=== PATIENT | female | born 1965 | race Caucasian/White ===

== ENCOUNTER 2017-07-26 14:46 | Inpatient (IN) | payer BC, OTHER ==
[~2017-07-26] VITALS: Ht 165.1 cm; Wt 85.1 kg
[~2017-07-26 14:46] MED LIST: ALBU8I INH; CYCL-36 PO; DIOV80TA4 PO; ECOT81TA2 PO; ESTR1TAB12 PO; LEVE500 PO; LEVO75TA3 PO; LORA-392 PO; METO50TA PO; MONT10 PO; NIFE1TAB85 PO; PROM25TA5 PO; RANI150T PO
[2017-07-26 14:49] VITALS: BP 132/84; PULSE 98; RESP 17; TEMP 98.4; O2SAT 99
[2017-07-26] MEDS ORDERED: SODIUM CHLORID 0.9% 500 ML INJ 500 ML IV ONE (15:30)
[2017-07-26] MEDS ORDERED: SODIUM CHLORIDE 0.9% FLUSH 10 ML FLUSH IVF PRN (15:30)
--- NOTE | 2017-07-26 15:49 | PD ---
HPI Chief Complaint: Chest Pain Time Seen by Provider: 15:42 Travel History International Travel<30 days: No Contact w/Intl Traveler<30days: No Traveled to known affect area: No History of Present Illness HPI 52 YO F presents to the ED for evaluation of ~3 hour history of weakness of the lower extremities. She states that she was able to walk to the bathroom this morning around 6 am and walk with her around noon today. She states that she has had chronic, worsening issues with loss of strength in the LE for "a while now." She also complains of constant, " pretty bad" left sided CP x "days." Denies incontinence or saddle anesthesia. She denies fevers, chills, headache, dizziness, cough, palpitations, N/V, dysuria, back pain, numbness, tingling of the LE. She states that she has discussed the weakness with her PCP but hasn't had any evaluation. PFSH Past Medical History Asthma: Yes Anxiety: Yes Cancer: No Cardiovascular Problems: Yes Cerebrovascular Accident: No Diabetes: No Diminished Hearing: No Endocrine: Yes GERD: Yes Genitourinary: No Headaches: Yes Hypertension: Yes Immune Disorder: No Neurologic: No Psychiatric: Yes Respiratory: Yes (ASTHMA) Migraines: Yes (X LAST 2 DAYS) Seizures: No (THIS VISIT 04/25/15) Thyroid Disease: Yes (HYPOTHYROID) ?: Not Past Surgical History Ear Surgery: Yes (SOME TEETH REMOVED) Gynecologic Surgery: Yes (HYSTERECTOMY) Hysterectomy: Yes Social History Alcohol Use: Yes (1-2 DRINKS/DAY) Tobacco Use: No Substance Use: No Allergies-Medications (Allergen,Severity, Reaction): Coded Allergies: enalaprilat (Verified Allergy, Severe, Swelling, 07/26/17) morphine (Verified Allergy, Severe, Anaphylaxis, 07/26/17) latex (Verified Adverse Reaction, Severe, Rash, 07/26/17) lidocaine (Verified Adverse Reaction, Intermediate, Swelling, 07/26/17) CAUSED FACIAL SWELLING. Reported Meds & Prescriptions Reported Meds & Active Scripts Active Reported Valsartan 160 Mg Tab 160 Mg PO DAILY Levothyroxine (Levothyroxine Sodium) 112 Mcg Tab 112 Mcg PO DAILY Clonazepam 0.5 Mg Tab 0.5 Mg PO BID Singulair (Montelukast Sodium) 10 Mg Tab 10 Mg PO HS Keppra (Levetiracetam) 500 Mg Tab 500 Mg PO TID Gabapentin 300 Mg Cap 300 Mg PO TID Metoprolol Tartrate 100 Mg Tab 100 Mg PO BID Review of Systems Except as stated in HPI: all other systems reviewed are Neg Physical Exam Narrative GENERAL: Well-nourished, well-developed distracted white female in no acute distress. SKIN: Focused skin assessment warm/dry. Ecchymosis in various states of healing on the bilateral lower extremities. HEAD: Normocephalic. EYES: No scleral icterus. No injection or drainage. NECK: Supple, trachea midline. No JVD or lymphadenopathy. CARDIOVASCULAR: Regular rate and rhythm without murmurs, gallops, or rubs. CHEST: Nontender throughout without deformity or crepitus. No retractions. RESPIRATORY: Breath sounds clear and equal bilaterally. No accessory muscle use. GASTROINTESTINAL: Abdomen soft, non-tender, nondistended. Active bowel sounds MUSCULOSKELETAL: No cyanosis, or edema. 5/5 strength in the BUE. 3-4/5 strength of dorsiflexion, plantar flexion, knee and hip flexion bilaterally.Difficultly performing heel to bowling test bilaterally. Sensation intact to light touch distally.Cap refill less than 2 seconds. BACK: Nontender without obvious deformity. No CVA tenderness. Data Data Last Documented VS Vital Signs Date Time Temp Pulse Resp B/P (MAP) Pulse Ox O2 Delivery O2 Flow Rate FiO2 07/26/17 16:59 99/54 (69) 07/26/17 14:49 98.4 98 17 99 Orders Orders Electrocardiogram (07/26/17 15:18) Ckmb (Isoenzyme) Profile (07/26/17 15:18) Complete Blood Count With Diff (07/26/17 15:18) Comprehensive Metabolic Panel (07/26/17 15:18) Magnesium (Mg) (07/26/17 15:18) Troponin I (07/26/17 15:18) Chest, Single Ap (07/26/17 15:18) Ecg Monitoring (07/26/17 15:18) Bilateral Bp Monitoring (07/26/17 15:18) Iv Access Insert/Monitor (07/26/17 15:18) Oximetry (07/26/17 15:18) Sodium Chloride 0.9% Flush (Ns Flush) (07/26/17 15:30) Sodium Chlorid 0.9% 500 Ml Inj (Ns 500 M (07/26/17 15:30) Ct Brain W/O Iv Contrast(Rout) (07/26/17 ) Lactic Acid Sepsis Protocol (07/26/17 17:00) Blood Culture (07/26/17 17:07) Sodium Chlor 0.9% 1000 Ml Inj (Ns 1000 M (07/26/17 17:45) Sodium Chlor 0.9% 1000 Ml Inj (Ns 1000 M (07/26/17 17:45) Alcohol (Ethanol) (07/26/17 17:50) Levothyroxine (Synthroid) (07/27/17 06:00) Place In Observation (07/26/17 ) Vital Signs (Adult) Q4H (07/26/17 18:09) Activity Oob With Assistance (07/26/17 18:09) Intake + Output DIPTI.QSHIFT (07/26/17 18:09) Diet Heart Healthy (07/26/17 Dinner) Sodium Chlor 0.45% 1000 Ml Inj (1/2 Ns 1 (07/26/17 18:09) Sodium Chloride 0.9% Flush (Ns Flush) (07/26/17 18:15) Sodium Chloride 0.9% Flush (Ns Flush) (07/26/17 21:00) Ondansetron Inj (Zofran Inj) (07/26/17 18:15) Heparin Inj (Heparin Inj) (07/26/17 19:00) Naloxone Inj (Narcan Inj) (07/26/17 18:15) Docusate Sodium-Senna (Jacquelyn-Colace) (07/26/17 21:00) Magnesium Hydroxide Liq (Milk Of Magnesi (07/26/17 18:15) Sennosides (Senokot) (07/26/17 18:15) Bisacodyl Supp (Dulcolax Supp) (07/26/17 18:15) Lactulose Liq (Lactulose Liq) (07/26/17 18:15) Admit Order (Ed Use Only) (07/26/17 18:09) Labs Laboratory Tests Test 07/26/17 16:25 White Blood Count 6.5 TH/MM3 Red Blood Count 3.48 MIL/MM3 Hemoglobin 11.7 GM/DL Hematocrit 35.1 % Mean Corpuscular Volume 101.0 FL Mean Corpuscular Hemoglobin 33.6 PG Mean Corpuscular Hemoglobin Concent 33.3 % Red Cell Distribution Width 15.3 % Platelet Count 213 TH/MM3 Mean Platelet Volume 9.0 FL Neutrophils (%) (Auto) 67.8 % Lymphocytes (%) (Auto) 17.5 % Monocytes (%) (Auto) 10.6 % Eosinophils (%) (Auto) 3.0 % Basophils (%) (Auto) 1.1 % Neutrophils # (Auto) 4.4 TH/MM3 Lymphocytes # (Auto) 1.1 TH/MM3 Monocytes # (Auto) 0.7 TH/MM3 Eosinophils # (Auto) 0.2 TH/MM3 Basophils # (Auto) 0.1 TH/MM3 CBC Comment DIFF FINAL Differential Comment Blood Urea Nitrogen 15 MG/DL Creatinine 2.00 MG/DL Random Glucose 92 MG/DL Total Protein 6.1 GM/DL Albumin 3.0 GM/DL Calcium Level 8.6 MG/DL Magnesium Level 2.2 MG/DL Alkaline Phosphatase 39 U/L Aspartate Amino Transf (AST/SGOT) 61 U/L Alanine Aminotransferase (ALT/SGPT) 45 U/L Total Bilirubin 1.0 MG/DL Sodium Level 129 MEQ/L Potassium Level 3.5 MEQ/L Chloride Level 91 MEQ/L Carbon Dioxide Level 27.6 MEQ/L Anion Gap 10 MEQ/L Estimat Glomerular Filtration Rate 26 ML/MIN Total Creatine Kinase 51 U/L Troponin I LESS THAN 0.02 NG/ML MDM Medical Decision Making Medical Screen Exam Complete: Yes Emergency Medical Condition: Yes Interpretation(s) EKG rate 62, sinus rhythm. Normal intervals. Normal axis. No acute ST changes. Reviewed by Dr. Chao. Differential Diagnosis hypoTN versus UTI versus deconditioning versus anemia versus hypothyroid versus metabolic derangement versus other Narrative Course 52 YO F presents to the ED for evaluation of ~3 hour history of weakness of the lower extremities. She states that she was able to walk to the bathroom this morning around 6 am and walk with her husbands assistance around noon today. She states that she has had chronic, worsening issues with loss of strength in the LE for "a while now." She also complains of constant, " pretty bad" left sided CP x "days." Denies incontinence or saddle anesthesia. She denies fevers, chills, headache, dizziness, cough, palpitations, N/V, dysuria, back pain, numbness, tingling of the LE. Vitals reviewed. Patient is hypotensive on presentation. A central line was placed by Dr. Baez. The patient was administered 3 L NS. CBC: WBC 6.5. Hemoglobin 11.7. CMP: BUN 15, creatinine 2.0. Sodium 129, chloride 91. Cardiac enzymes negative 1. EKG as above. Chest x-ray with no acute cardiopulmonary disease. UA: No culture indicated. Lactic acid 0.9. EtOH less than 3. CT of the head negative for acute process. Review the record reveals documentation of chronic alcoholism and the patient does have some microcytosis. Patient was hospitalized recently with severe hypernatremia and was instructed to discontinue her antihypertensives. She states that she still been taking them. I spoke with Dr. Parker who agrees to accept the patient to the medicine service. Please see medicine notes for disposition. Leydi Hutchins Jul 26, 2017 15:49
--- NOTE | 2017-07-26 16:28 | RADRPT ---
EXAM DATE/TIME: 07/26/2017 15:44 [facility] COMPARISON: CHEST SINGLE AP, April 25, 2015, 3:36. INDICATIONS : Chest pain and bilateral leg weakness. MEDICAL HISTORY : None. SURGICAL HISTORY : None. ENCOUNTER: Initial ACUITY: 1 day PAIN SCORE: 5/10 LOCATION: Bilateral chest FINDINGS: There is elevation of the right hemidiaphragm. Discoid atelectasis is noted within the right midlung field. The left lung is clear. The heart is stable. CONCLUSION: 1. Discoid atelectasis within the right midlung field. 2. Elevation of the right hemidiaphragm. Puneet Soliman MD on July 26, 2017 at 16:16 Board Certified Radiologist. This report was verified electronically.
[2017-07-26 16:59] VITALS: BP 99/54
[2017-07-26 17:05] LABS: AUTOMATED NEUTROPHIL # 4.4 TH/MM3 (1.8-7.7); BASOPHIL # 0.1 TH/MM3 (0-0.2); BASOPHIL % 1.1 % (0.0-2.0); EOSINOPHIL # 0.2 TH/MM3 (0-0.4); HEMATOCRIT 35.1 % (35.0-46.0); HEMO FLAGS DIFF FINAL; LYMPH % 17.5 % (9.0-44.0); LYMPHOCYTE # 1.1 TH/MM3 (1.0-4.8); MEAN CORPUSCULAR HEMOGLOBIN 33.6 PG (27.0-34.0); MEAN CORPUSCULAR HGB CONC 33.3 % (32.0-36.0); MONO % 10.6 % (0.0-8.0); NEUT % 67.8 % (16.0-70.0); PLATELET COUNT 213 TH/MM3 (150-450); RED BLOOD COUNT 3.48 MIL/MM3 (4.00-5.30); RED CELL DISTRIBUTION WIDTH 15.3 % (11.6-17.2); WHITE BLOOD COUNT 6.5 TH/MM3 (4.0-11.0)
[2017-07-26 17:20] LABS: ANION GAP 10 MEQ/L (5-15); AST (GOT) 61 U/L (15-37); BICARBONATE 27.6 MEQ/L (21.0-32.0); BLOOD UREA NITROGEN 15 MG/DL (7-18); CHLORIDE 91 MEQ/L (98-107); GLOMERULAR FILTRATION RATE 26 ML/MIN (>89); MAGNESIUM 2.2 MG/DL (1.5-2.5); POTASSIUM 3.5 MEQ/L (3.5-5.1); SODIUM (NA) 129 MEQ/L (136-145)
[2017-07-26 17:22] LABS: ALT (GPT) 45 U/L (10-53)
[2017-07-26 17:25] LABS: ALKALINE PHOSPHATASE 39 U/L (45-117)
[2017-07-26 17:41] LABS: CREATINE KINASE 51 U/L (26-192)
--- NOTE | 2017-07-26 17:43 | RADRPT ---
EXAM DATE/TIME: 07/26/2017 17:33 [facility] COMPARISON: CT BRAIN W/O CONTRAST, April 25, 2015, 2:25. INDICATIONS : Patient complains of weakness. RADIATION DOSE: 30.13 CTDIvol (mGy) MEDICAL HISTORY : Seizures. Hypertension. Low blood pressure. SURGICAL HISTORY : Hysterectomy. ENCOUNTER: Initial ACUITY: 2 days PAIN SCALE: 0/10 LOCATION: cranial TECHNIQUE: Multiple contiguous axial images were obtained of the head. Using automated exposure control and adj ustment of the mA and/or kV according to patient size, radiation dose was kept as low as reasonably a chievable to obtain optimal diagnostic quality images. DICOM format image data is available electro nically for review and comparison. FINDINGS: CEREBRUM: The ventricles are normal for age. No evidence of midline shift, mass lesion, hemorrhage or acute in farction. No extra-axial fluid collections are seen. POSTERIOR FOSSA: The cerebellum and brainstem are intact. The 4th ventricle is midline. The cerebellopontine angle i s unremarkable. EXTRACRANIAL: The visualized portion of the orbits is intact. SKULL: The calvaria is intact. No evidence of skull fracture. CONCLUSION: Negative noncontrast CT Francisco Orozco MD on July 26, 2017 at 17:41 Board Certified Radiologist. This report was verified electronically.
[2017-07-26] MEDS ORDERED: SODIUM CHLOR 0.9% 1000 ML INJ 1,000 ML IV SCH ×2 (17:45)
[2017-07-26] MEDS ORDERED: VALS1TAB65 PO (17:46)
[2017-07-26] MEDS ORDERED: METO100T PO (17:46)
[2017-07-26] MEDS ORDERED: LEVO112T2 PO (17:46)
[2017-07-26] MEDS ORDERED: GABA300C5 PO (17:46)
[2017-07-26] MEDS ORDERED: MONT10TA2 PO (17:46)
[2017-07-26] MEDS ORDERED: CLON0.5T PO (17:46)
[2017-07-26] MEDS ORDERED: NIFE30TA61 PO (17:46)
[2017-07-26] MEDS ORDERED: LEVE500 PO (17:46)
[2017-07-26] MEDS ORDERED: SODIUM CHLORIDE 0.9% FLUSH 10 ML FLUSH IV FLUSH PRN (18:15)
[2017-07-26] MEDS ORDERED: MAGNESIUM HYDROXIDE SUSP 30 ML CUP PO PRN (18:15)
[2017-07-26] MEDS ORDERED: ONDANSETRON HCL 4 MG/2 ML VIAL IVP PRN (18:15)
[2017-07-26] MEDS ORDERED: NALOXONE HCL 0.4 MG/ML AMP IV PRN (18:15)
[2017-07-26] MEDS ORDERED: BISACODYL 10 MG SUPP RECTAL PRN (18:15)
[2017-07-26] MEDS ORDERED: SENNOSIDES 8.6 MG TAB PO PRN (18:15)
[2017-07-26] MEDS ORDERED: LACTULOSE SYRUP 20 GM/30 ML CUP PO PRN (18:15)
--- NOTE | 2017-07-26 18:43 | PD ---
Data Data Last Documented VS Vital Signs Date Time Temp Pulse Resp B/P (MAP) Pulse Ox O2 Delivery O2 Flow Rate FiO2 07/26/17 16:59 99/54 (69) 07/26/17 14:49 98.4 98 17 99 Orders Orders Electrocardiogram (07/26/17 15:18) Ckmb (Isoenzyme) Profile (07/26/17 15:18) Complete Blood Count With Diff (07/26/17 15:18) Comprehensive Metabolic Panel (07/26/17 15:18) Magnesium (Mg) (07/26/17 15:18) Troponin I (07/26/17 15:18) Chest, Single Ap (07/26/17 15:18) Ecg Monitoring (07/26/17 15:18) Bilateral Bp Monitoring (07/26/17:18) Iv Access Insert/Monitor (07/26/17 15:18) Oximetry (07/26/17 15:18) Sodium Chloride 0.9% Flush (Ns Flush) (07/26/17 15:30) Sodium Chlorid 0.9% 500 Ml Inj (Ns 500 M (07/26/17 15:30) Ct Brain W/O Iv Contrast(Rout) (07/26/17 ) Lactic Acid Sepsis Protocol (07/26/17 17:00) Blood Culture (07/26/17 17:07) Sodium Chlor 0.9% 1000 Ml Inj (Ns 1000 M (07/26/17 17:45) Sodium Chlor 0.9% 1000 Ml Inj (Ns 1000 M (07/26/17 17:45) Alcohol (Ethanol) (07/26/17 17:50) Levothyroxine (Synthroid) (07/27/17 09:00) Place In Observation (07/26/17 ) Vital Signs (Adult) Q4H (07/26/17 18:09) Activity Oob With Assistance (07/26/17 18:09) Intake + Output DIPTI.QSHIFT (07/26/17 18:09) Diet Heart Healthy (07/26/17 Dinner) Sodium Chlor 0.45% 1000 Ml Inj (1/2 Ns 1 (07/26/17 18:09) Sodium Chloride 0.9% Flush (Ns Flush) (07/26/17 18:15) Sodium Chloride 0.9% Flush (Ns Flush) (07/26/17 21:00) Ondansetron Inj (Zofran Inj) (07/26/17 18:15) Basic Metabolic Panel (Bmp) (07/27/17 06:00) Heparin Inj (Heparin Inj) (07/26/17 19:00) Naloxone Inj (Narcan Inj) (07/26/17 18:15) Docusate Sodium-Senna (Jacquelyn-Colace) (07/26/17 21:00) Magnesium Hydroxide Liq (Milk Of Magnesi (07/26/17 18:15) Sennosides (Senokot) (07/26/17 18:15) Bisacodyl Supp (Dulcolax Supp) (07/26/17 18:15) Lactulose Liq (Lactulose Liq) (07/26/17 18:15) Admit Order (Ed Use Only) (07/26/17 18:09) Labs Laboratory Tests Test 07/26/17 16:25 White Blood Count 6.5 TH/MM3 Red Blood Count 3.48 MIL/MM3 Hemoglobin 11.7 GM/DL Hematocrit 35.1 % Mean Corpuscular Volume 101.0 FL Mean Corpuscular Hemoglobin 33.6 PG Mean Corpuscular Hemoglobin Concent 33.3 % Red Cell Distribution Width 15.3 % Platelet Count 213 TH/MM3 Mean Platelet Volume 9.0 FL Neutrophils (%) (Auto) 67.8 % Lymphocytes (%) (Auto) 17.5 % Monocytes (%) (Auto) 10.6 % Eosinophils (%) (Auto) 3.0 % Basophils (%) (Auto) 1.1 % Neutrophils # (Auto) 4.4 TH/MM3 Lymphocytes # (Auto) 1.1 TH/MM3 Monocytes # (Auto) 0.7 TH/MM3 Eosinophils # (Auto) 0.2 TH/MM3 Basophils # (Auto) 0.1 TH/MM3 CBC Comment DIFF FINAL Differential Comment Blood Urea Nitrogen 15 MG/DL Creatinine 2.00 MG/DL Random Glucose 92 MG/DL Total Protein 6.1 GM/DL Albumin 3.0 GM/DL Calcium Level 8.6 MG/DL Magnesium Level 2.2 MG/DL Alkaline Phosphatase 39 U/L Aspartate Amino Transf (AST/SGOT) 61 U/L Alanine Aminotransferase (ALT/SGPT) 45 U/L Total Bilirubin 1.0 MG/DL Sodium Level 129 MEQ/L Potassium Level 3.5 MEQ/L Chloride Level 91 MEQ/L Carbon Dioxide Level 27.6 MEQ/L Anion Gap 10 MEQ/L Estimat Glomerular Filtration Rate 26 ML/MIN Total Creatine Kinase 51 U/L Troponin I LESS THAN 0.02 NG/ML MDM Supervised Visit with HUGH: Yes Narrative Course The history, exam, and medical decision-making in the associated midlevel provider note were completed with my assistance. I reviewed and agree with the findings presented. I attest that I had a [id number] encounter with the patient on the same day, and personally performed and documented my assessment and findings in the medical record. *My assessment and Findings: This is a 52-year-old female who presents to the emergency department with generalized weakness having trouble walking and falling intermittently. The patient appears very dry on exam. Labs demonstrate acute kidney injury compared to labs one month ago. One month ago she was hospitalized in the setting of hyponatremia and very similar symptoms. She was told to hold all of her antihypertensives however she still been taking them. Today she had a soft blood pressure. She was given 3 L total of fluid as she appears very dehydrated and her blood pressure improved. I suspect she may have underlying chronic alcoholism as she has macrocytosis and it's been documented in the past. Patient will be admitted for continued IV hydration and close monitoring. Mireille Baez MD Jul 26, 2017 18:43
[2017-07-26 19:15] VITALS: BP 80/41; PULSE 75; O2SAT 95
[2017-07-26 19:33] VITALS: BP 112/53; PULSE 80; RESP 20; O2SAT 96
[2017-07-26] MEDS: SODIUM CHLORIDE 0.9% FLUSH 10 ML FLUSH IV FLUSH SCH (19:35)
[2017-07-26 19:51] VITALS: BP 119/82; PULSE 59; O2SAT 94
[2017-07-26] MEDS: SODIUM CHLOR 0.45% 1000 ML INJ 1,000 ML IV SCH (19:51)
[2017-07-26] MEDS: HEPARIN SODIUM - SQ 10,000 UNITS/ML VIAL SQ SCH (19:51)
--- NOTE | 2017-07-26 20:54 | HHI.HP ---
[facility] Yuri Ellis MD Admission Diagnosis hypotension, hyponatremia, LEVI Diagnoses: Chief Complaint: lower extremity weakness Travel History International Travel<30 Days: No Contact w/Intl Traveler <30 Da: No Traveled to Known Affected Are: No History of Present Illness 52-year-old female with a history of seizures, asthma, anxiety, hypothyroidism, and hypertension presented to the ED with complaints of weakness in her bilateral lower extremities for the last month. Patient states she has intermittent lower extremity weakness for the last 1 month that has gotten worse over the last 1 week. She states she can be walking and all of a sudden her lower extremities get very weak and numb which causes her to fall, she does have her walk with her to the bathroom most of the time. She states she has met her PCP know but no evaluation has been completed she recently saw her PCP 2 weeks ago and was found to have low blood pressure and was taken off her nifedipine at this time. Per the she has also been having "mind problem" in which she forgets things and is sometimes confused. She is unsure if she is has had any seizures that she is unaware of. For the past few weeks she has also quit drinking as much as she use to, prior to this she was a heavy drinker but now she has one drink every few days. She states her last seizure was last time she was in the hospital in 2014, she does see Dr. Vyas outpatient but has not seen her in a while. Today she complains of intermittent sternal pressure-like chest pain but denies any radiating to her arm or jaw. She denies any associated nausea, diaphoresis or shortness of breath. She denies any double vision, blurry vision, fever, chills, cough or dizziness. Review of Systems Except as stated in HPI: all other systems reviewed are Neg Past Family Social History Past Medical History Seizures, asthma, anxiety, hypothyroid, hypertension Past Surgical History Hysterectomy Lung surgery as a child unsure what kind Reported Medications Reported Meds & Active Scripts Active Reported Valsartan 160 Mg Tab 160 Mg PO DAILY Levothyroxine (Levothyroxine Sodium) 112 Mcg Tab 112 Mcg PO DAILY Clonazepam 0.5 Mg Tab 0.5 Mg PO BID Singulair (Montelukast Sodium) 10 Mg Tab 10 Mg PO HS Keppra (Levetiracetam) 500 Mg Tab 500 Mg PO TID Gabapentin 300 Mg Cap 300 Mg PO TID Metoprolol Tartrate 100 Mg Tab 100 Mg PO BID Allergies: Coded Allergies: enalaprilat (Verified Allergy, Severe, Swelling, 07/26/17) morphine (Verified Allergy, Severe, Anaphylaxis, 07/26/17) latex (Verified Adverse Reaction, Severe, Rash, 07/26/17) lidocaine (Verified Adverse Reaction, Intermediate, Swelling, 07/26/17) CAUSED FACIAL SWELLING. Active Ordered Medications Current Medications Medications (Trade) Dose Ordered Sig/Barrera Route Start Time Stop Time Status Last Admin (NS Flush) 2 ml UNSCH PRN IVF 07/26/17 15:30 (Synthroid) 112 mcg DAILY PO 07/27/17 09:00 Sodium Chloride 1,000 ml @ 45 mls/hr [id number] IV 07/26/17 18:09 07/26/17 19:51 (NS Flush) 2 ml UNSCH PRN IV FLUSH 07/26/17 18:15 (NS Flush) 2 ml BID IV FLUSH 07/26/17 21:00 (Zofran Inj) 4 mg Q6H PRN IVP 07/26/17 18:15 (Heparin Inj) 5,000 units Q12H SQ 07/26/17 19:00 07/26/17 19:51 (Narcan Inj) 0.4 mg UNSCH PRN IV 07/26/17 18:15 (Jacquelyn-Colace) 1 tab BID PO 07/26/17 21:00 (Milk Of Magnesia Liq) 30 ml Q12H PRN PO 07/26/17 18:15 (Senokot) 17.2 mg Q12H PRN PO 07/26/17 18:15 (Dulcolax Supp) 10 mg DAILY PRN RECTAL 07/26/17 18:15 (Lactulose Liq) 30 ml DAILY PRN PO 07/26/17 18:15 Family History Patient denies any family history, no heart disease or cancer. Social History Tobacco use: Denies Alcohol use: Occasionally, 3 weeks ago she was a daily drinker Illicit drug use: Denies Physical Exam Vital Signs Vital Signs Date Time Temp Pulse Resp B/P (MAP) Pulse Ox O2 Delivery O2 Flow Rate FiO2 07/26/17 19:51 59 119/82 (94) 94 07/26/17 19:33 95 Room Air 07/26/17 19:33 80 20 112/53 (72) 96 Room Air 07/26/17 19:15 75 80/41 (54) 95 Room Air 07/26/17 16:59 99/54 (69) 07/26/17 14:49 98.4 98 17 132/84 (100) 99 Physical Exam GENERAL: This is a well-nourished, well-developed patient, in no apparent distress. SKIN: No rashes, ecchymoses or lesions. Cool and dry. HEAD: Atraumatic. Normocephalic. EYES: Pupils equal round and reactive. ENT: Nose without bleeding, purulent drainage or septal hematoma. Airway patent. NECK: Trachea midline. No JVD or lymphadenopathy. CARDIOVASCULAR: Regular rate and rhythm without murmurs, gallops, or rubs. RESPIRATORY: Clear to auscultation. Breath sounds equal bilaterally. No wheezes , rales, or rhonchi. GASTROINTESTINAL: Abdomen soft, non-tender, nondistended. MUSCULOSKELETAL: Extremities without clubbing, cyanosis, or edema. No joint tenderness, effusion, or edema noted. No calf tenderness. NEUROLOGICAL: Awake and alert. Cranial nerves II through XII intact. Motor and sensory grossly within normal limits.4 out of 5 strength in bilateral lower extremities. 5/5 in upper extremities. Equal sensation intact. Normal speech. Laboratory Laboratory Tests Test 07/26/17 16:25 07/26/17 18:15 07/26/17 18:30 White Blood Count 6.5 Red Blood Count 3.48 Hemoglobin 11.7 Hematocrit 35.1 Mean Corpuscular Volume 101.0 Mean Corpuscular Hemoglobin 33.6 Mean Corpuscular Hemoglobin Concent 33.3 Red Cell Distribution Width 15.3 Platelet Count 213 Mean Platelet Volume 9.0 Neutrophils (%) (Auto) 67.8 Lymphocytes (%) (Auto) 17.5 Monocytes (%) (Auto) 10.6 Eosinophils (%) (Auto) 3.0 Basophils (%) (Auto) 1.1 Neutrophils # (Auto) 4.4 Lymphocytes # (Auto) 1.1 Monocytes # (Auto) 0.7 Eosinophils # (Auto) 0.2 Basophils # (Auto) 0.1 CBC Comment DIFF FINAL Differential Comment Blood Urea Nitrogen 15 Creatinine 2.00 Random Glucose 92 Total Protein 6.1 Albumin 3.0 Calcium Level 8.6 Magnesium Level 2.2 Alkaline Phosphatase 39 Aspartate Amino Transf (AST/SGOT) 61 Alanine Aminotransferase (ALT/SGPT) 45 Total Bilirubin 1.0 Sodium Level 129 Potassium Level 3.5 Chloride Level 91 Carbon Dioxide Level 27.6 Anion Gap 10 Estimat Glomerular Filtration Rate 26 Total Creatine Kinase 51 Troponin I LESS THAN 0.02 Lactic Acid Level 1.0 Ethyl Alcohol Level LESS THAN 3 Date/Time Source Procedure Growth Status 07/26/17 18:15 Blood Line Aerobic Blood Culture Pending Received 07/26/17 18:15 Blood Line Anaerobic Blood Culture Pending Received Result Diagram: 07/26/17 1625 07/26/17 1625 Imaging Last Impressions Chest X-Ray 07/26/17 1518 Signed Impressions: Service Date/Time: Wednesday, July 26, 2017 15:44 - CONCLUSION: 1. Discoid atelectasis within the right midlung field. 2. Elevation of the right hemidiaphragm. Puneet Soliman MD Head CT 07/26/17 0000 Signed Impressions: Service Date/Time: Wednesday, July 26, 2017 17:33 - CONCLUSION: Negative noncontrast CT MD Phoenix Aguilar VTE Risk Assessment Caprini VTE Risk Assessment: Mod/High Risk (score >= 2) Caprini Risk Assessment Model Point Value = 1 Point Value = 2 Point Value = 3 Point Value = 5 Age 41-60 Minor surgery BMI > 25 kg/m2 Swollen legs Varicose veins or History of unexplained or recurrent spontaneous Oral contraceptives or hormone replacement Sepsis (< 1 month) Serious lung disease, including pneumonia (< 1 month) Abnormal pulmonary function Acute myocardial infarction Congestive heart failure (< 1 month) History of inflammatory bowel disease Medical patient at bed rest Age 61-74 Arthroscopic surgery Major open surgery (> 45 min) Laparoscopic surgery (> 45 min) Malignancy Confined to bed (> 72 hours) Immobilizing plaster cast Central venous access Age >= 75 History of VTE Family history of VTE Factor V Leiden Prothrombin [id number] Lupus anticoagulant Anticardiolipin antibodies Elevated serum homocysteine Heparin-induced thrombocytopenia Other congenital or acquired thrombophilia Stroke (< 1 month) Elective arthroplasty Hip, pelvis, or leg fracture Acute spinal cord injury (< 1 month) Prophylaxis Regimen Total Risk Factor Score Risk Level Prophylaxis Regimen 0-1 Low Early ambulation 2 Moderate Order ONE of the following: *Sequential Compression Device (SCD) *Heparin 5000 units SQ BID 3-4 Higher Order ONE of the following medications: *Heparin 5000 units SQ TID *Enoxaparin/Lovenox 40 mg SQ daily (WT < 150 kg, CrCl > 30 mL/min) *Enoxaparin/Lovenox 30 mg SQ daily (WT < 150 kg, CrCl > 10-29 mL/min) *Enoxaparin/Lovenox 30 mg SQ BID (WT < 150 kg, CrCl > 30 mL/min) AND/OR *Sequential Compression Device (SCD) 5 or more Highest Order ONE of the following medications: *Heparin 5000 units SQ TID (Preferred with Epidurals) *Enoxaparin/Lovenox 40 mg SQ daily (WT < 150 kg, CrCl > 30 mL/min) *Enoxaparin/Lovenox 30 mg SQ daily (WT < 150 kg, CrCl > 10-29 mL/min) *Enoxaparin/Lovenox 30 mg SQ BID (WT < 150 kg, CrCl > 30 mL/min) AND *Sequential Compression Device (SCD) Assessment and Plan Problem List: (1) Physical deconditioning ICD Code: R53.81 - Other malaise Status: Acute (2) Acute kidney injury ICD Code: N17.9 - Acute kidney failure, unspecified Status: Acute (3) Chest pain ICD Code: R07.9 - Chest pain, unspecified (4) Hyponatremia ICD Code: E87.1 - Hypo-osmolality and hyponatremia (5) Seizure ICD Code: R56.9 - Unspecified convulsions Status: Chronic (6) HTN (hypertension) ICD Code: I10 - HTN (hypertension) Status: Chronic (7) Hypothyroid ICD Code: E03.9 - Hypothyroid Status: Chronic Assessment and Plan 52-year-old female with a history of seizures, asthma, anxiety, hypothyroidism, and hypertension presented to the ED with complaints of weakness in her bilateral lower extremities for the last month. Patient states she has intermittent lower extremity weakness for the last 1 month that has gotten worse over the last 1 week. Physical deconditioning, patient was bilateral lower extremity weakness and numbness 1 month, suspected due to dehydration and hyponatremia, will rule out any neurological abnormalities Head CT reviewed and is unremarkable -PT eval and treat -Consult neurology, patient also with a history of seizures -OOB with assist Acute kidney injury, creatinine 2.0, baseline in 2015 .4, suspected dehydration -2.5 L NS bolus given in the ED -Trend creatinine in a.m. -Avoid nephrotoxins Hyponatremia, acute sodium 129 -Continue IVF 1/2NS -Trend sodium levels Seizure, chronic, unsure if any recent seizures -Restart home medications Keppra -EEG ordered -Await neuro evaluation Chest pain, atypical r/o ACS, troponin less than .02, EKG reviewed and shows SR -Serial troponin and EKGs HTN, chronic currently hypotension -Hold all blood pressure medications for now, may need adjustment discharge -Monitor vitals Hypothyroid, chronic -Resume home medication Synthroid -TSH ordered DVT prophylaxis: SCDs, Heparin Discussed Condition With Patient, patient's and RN Gia Clark Jul 26, 2017 20:54
[2017-07-26] MEDS: DOCUSATE SODIUM 50 MG/SENNA 8.6 MG TAB PO SCH (21:16)
[2017-07-26] MEDS: MONTELUKAST SODIUM 10 MG TAB PO SCH (21:16)
[2017-07-27] VITALS (7 sets, daily range): BP systolic 89–122; BP diastolic 52–82; PULSE 65–85; RESP 16–18; TEMP 97.4–98.8; O2SAT 88–98
[2017-07-27 04:47] LABS: ANION GAP 9 MEQ/L (5-15); BICARBONATE 25.2 MEQ/L (21.0-32.0); BLOOD UREA NITROGEN 11 MG/DL (7-18); CHLORIDE 104 MEQ/L (98-107); GLOMERULAR FILTRATION RATE 45 ML/MIN (>89); POTASSIUM 3.4 MEQ/L (3.5-5.1); SODIUM (NA) 138 MEQ/L (136-145)
[2017-07-27] MEDS: HEPARIN SODIUM - SQ 10,000 UNITS/ML VIAL SQ SCH ×2 (05:31→18:11)
[2017-07-27] MEDS: LEVOTHYROXINE SODIUM 112 MCG TAB PO SCH (05:31)
[2017-07-27] MEDS: SODIUM CHLORIDE 0.9% FLUSH 10 ML FLUSH IV FLUSH SCH ×2 (09:00→21:48)
[2017-07-27] MEDS: DOCUSATE SODIUM 50 MG/SENNA 8.6 MG TAB PO SCH ×2 (09:33→21:48)
[2017-07-27] MEDS: GABAPENTIN 300 MG CAP PO SCH ×3 (09:33→17:25)
[2017-07-27] MEDS: levETIRAcetam 500 MG TAB PO SCH ×3 (09:33→17:25)
[2017-07-27 10:54] LABS: BLOOD, URINE NEG (NEG); COMMENT (UR) CULT NOT INDICATED; CULTURE IF INDICATED CULT NOT INDICATED; GLUCOSE,URINE NEG (NEG); KETONE, URINE NEG (NEG); NITRITE,URINE NEG (NEG); PH, URINE 5.5 (5.0-8.5); URINE COLOR YELLOW (YELLW/STRAW)
--- NOTE | 2017-07-27 11:48 | RADRPT ---
EXAM DATE/TIME: 07/27/2017 10:46 [facility] COMPARISON: No previous studies available for comparison. INDICATIONS : Obstruction. Abnormal labs. MEDICAL HISTORY : Hypothyroid. Seizures. Head trauma. Migraines. Hypertension. Asthma. Colitis. IBS. GERD. SURGICAL HISTORY : Hysterectomy. Ear surgery. ENCOUNTER: Initial ACUITY: 1 day PAIN SCORE: 0/10 LOCATION: Bilateral flank MEASUREMENTS: RIGHT KIDNEY: 9.4 x 4.8 x 5.3 cm LEFT KIDNEY: 9.2 x 5.0 x 5.4 cm FINDINGS: RIGHT KIDNEY: Renal cortex is normal in thickness and echotexture. No hydronephrosis, stone, or mass. LEFT KIDNEY: Renal cortex is normal in thickness and echotexture. No hydronephrosis, stone, or mass. Minimal per inephric fluid is noted on the left. BLADDER: There is limited evaluation of the nondistended urinary bladder with a Spencer catheter. CONCLUSION: 1. Minimal left perinephric fluid. 2. Otherwise unremarkable kidneys bilaterally. 3. Limited evaluation of the nondistended urinary bladder with Spencer catheter. Puneet Soliman MD on July 27, 2017 at 11:45 Board Certified Radiologist. This report was verified electronically.
[2017-07-27] MEDS: POTASSIUM CHLORIDE 10 MEQ CONTROLLED RELEASE TAB PO SCH ×2 (15:31→21:48)
[2017-07-27] MEDS: SODIUM CHLOR 0.45% 1000 ML INJ 1,000 ML IV SCH (16:23)
--- NOTE | 2017-07-27 17:13 | HHI.PR ---
Subjective Remarks Follow up for lower ext weakness. Patient is resting in bed, doing well. No CP, shortness of breath, fever, chills. She feels weak on her legs. She tried to work with PT earlier but it was very difficult. Objective Vitals Vital Signs Date Time Temp Pulse Resp B/P (MAP) Pulse Ox O2 Delivery O2 Flow Rate FiO2 07/27/17 15:32 97.6 79 18 122/82 (95) 98 07/27/17 13:50 98.0 76 16 102/67 (79) 95 07/27/17 12:43 97.4 79 16 117/67 (84) 95 07/27/17 11:43 97.8 75 16 110/70 (83) 97 07/27/17 07:16 98.0 65 18 117/61 (79) 95 07/27/17 03:46 97.8 70 18 89/55 (66) 88 07/26/17 19:51 59 119/82 (94) 94 07/26/17 19:33 95 Room Air 07/26/17 19:33 80 20 112/53 (72) 96 Room Air 07/26/17 19:15 75 80/41 (54) 95 Room Air I/O 07/26/17 07/26/17 07/26/17 07/27/17 07/27/17 07/27/17 07:00 15:00 23:00 07:00 15:00 23:00 Intake Total 2000 ml Balance 2000 ml Intake IV Total 2000 ml Result Diagram: 07/26/17 1625 07/27/17 0343 Imaging Last Impressions Thoracic Spine MRI 07/27/17 0000 Signed Impressions: Service Date/Time: Thursday, July 27, 2017 20:29 - CONCLUSION: 1. Mild scoliosis and mild degenerative changes at T1/T2, T8-T9 and T9/T10. 2. Otherwise negative MRI of the thoracic spine. No foraminal or spinal stenosis demonstrated. The thoracic cord is normal. Waylon Esquivel MD Renal Ultrasound 07/27/17 0000 Signed Impressions: Service Date/Time: Thursday, July 27, 2017 10:46 - CONCLUSION: 1. Minimal left perinephric fluid. 2. Otherwise unremarkable kidneys bilaterally. 3. Limited evaluation of the nondistended urinary bladder with Spencer catheter. Puneet Soliman MD Lumbar Spine MRI 07/27/17 0000 Signed Impressions: Service Date/Time: Thursday, July 27, 2017 20:29 - CONCLUSION: 1. Mid and lower lumbar degenerative changes as above. 2. Mild bilateral foraminal stenosis at L4/L5 and mild left foraminal stenosis at L5/S1. 3. No significant spinal stenosis at any level. 4. Bilateral osteoarthritis and synovitis of the L4/L5 and L5/S1 facets. Waylon Esquivel MD Cervical Spine MRI 07/27/17 0000 Signed Impressions: Service Date/Time: Thursday, July 27, 2017 20:29 - CONCLUSION: 1. Mild multilevel degenerative changes as above. 2. Low-grade foraminal encroachment at C5/C6 and C6/C7. Also slight effacement of the anterior aspect of the thecal sac at C6/C7. There is no high-grade foraminal or spinal stenosis at any level. 3. Cervical cord is within normal limits. 4. No fracture or subluxation. Waylon Esquivel MD Brain MRI 07/27/17 0000 Signed Impressions: Service Date/Time: Thursday, July 27, 2017 20:29 - CONCLUSION: No acute intracranial abnormality. No mass or significant acute or chronic white matter changes are demonstrated. Waylon Esquivel MD Chest X-Ray 07/26/17 1518 Signed Impressions: Service Date/Time: Wednesday, July 26, 2017 15:44 - CONCLUSION: 1. Discoid atelectasis within the right midlung field. 2. Elevation of the right hemidiaphragm. Puneet Soliman MD Head CT 07/26/17 0000 Signed Impressions: Service Date/Time: Wednesday, July 26, 2017 17:33 - CONCLUSION: Negative noncontrast CT Francisco Orozco MD Objective Remarks GENERAL: AOX3, NAD. SKIN: Warm and dry. HEAD: Normocephalic. EYES: No scleral icterus. No injection or drainage. NECK: Supple, trachea midline. No JVD or lymphadenopathy. CARDIOVASCULAR: Regular rate and rhythm without murmurs, gallops, or rubs. RESPIRATORY: Breath sounds equal bilaterally. No accessory muscle use. GASTROINTESTINAL: Abdomen soft, non-tender, nondistended. MUSCULOSKELETAL: No cyanosis, or edema. 4/5 strength bilateral legs. BACK: Nontender without obvious deformity. No CVA tenderness. Procedures None. A/P Problem List: (1) Physical deconditioning ICD Code: R53.81 - Other malaise Status: Acute (2) Acute kidney injury ICD Code: N17.9 - Acute kidney failure, unspecified Status: Acute (3) Chest pain ICD Code: R07.9 - Chest pain, unspecified (4) Hyponatremia ICD Code: E87.1 - Hypo-osmolality and hyponatremia (5) Seizure ICD Code: R56.9 - Unspecified convulsions Status: Chronic (6) HTN (hypertension) ICD Code: I10 - HTN (hypertension) Status: Chronic (7) Hypothyroid ICD Code: E03.9 - Hypothyroid Status: Chronic Assessment and Plan 52-year-old female with a history of seizures, asthma, anxiety, hypothyroidism, and hypertension presented to the ED with complaints of weakness in her bilateral lower extremities for the last month. Patient states she has intermittent lower extremity weakness for the last 1 month that has gotten worse over the last 1 week. Physical deconditioning, patient was bilateral lower extremity weakness and numbness 1 month, suspected due to dehydration and hyponatremia, will rule out any neurological abnormalities Head CT reviewed and is unremarkable -PT eval and treat -Consult neurology - Dr. Sutherland evaluated, further recommendations pending. -MRI studies were largely unremarkable for any acute findings. -OOB with assist Acute kidney injury, creatinine 2.0, baseline in 2015 .4, suspected dehydration -2.5 L NS bolus given in the ED - Creatinine improved to 1.24 -Avoid nephrotoxins Hyponatremia, acute sodium 129 -Continue IVF 1/2NS, Na improved to 138. Seizure, chronic, unsure if any recent seizures -Restart home medications Keppra -EEG - unremarkable study. Chest pain, atypical r/o ACS, troponins x 2 negative. No further work up. HTN, chronic currently hypotension -Patient's BP is on the lower side. Hold metoprolol and ARB for now. May not need any BP meds. Hypothyroid, chronic -Resume home medication Synthroid -TSH 0.636 DVT prophylaxis: SCDs, Heparin Michel Bee DO Jul 27, 2017 17:13
--- NOTE | 2017-07-27 19:40 | MG ---
cc: KRISTIN ZHANG M.D. Lab No: [id number] Date: 07/27/2017 Age: 52 Sex: F Race: __ TECHNIQUE 17 channel EEG. DESCRIPTION The background rhythm is that of a symmetrical alpha rhythm. Frequency is 8-10 Hz, amplitude is about 10 microvolts. No lateralizing features are identified. No epileptic features are seen. There is occasional muscle artifact present. Photic results in a well-developed driving response. INTERPRETATION Normal EEG MD CARI Jones/GIULIA /7:03 PM /7:32 PM
[2017-07-27 19:42] LABS: BETA HCG QUANT 5 MIU/ML (0-5)
--- NOTE | 2017-07-27 20:17 | MB ---
cc: KRISTIN ZHANG M.D. DATE OF CONSULTATION 07/27/2017 REASON FOR CONSULTATION Mental status change and lower extremity weakness. HISTORY OF PRESENT ILLNESS Ms. Arceo is a 52-year-old woman who for the past week or so has had progressive weakness of both legs, making walking difficult due to leg weakness. Her states she has also had mental status change at the same period of time with confusion, disorientation, not recognizing him etc. Prior to this was basically in her normal state. PAST MEDICAL HISTORY 1. History of seizure disorder. Apparently in the past was seen by Dr. Vyas. 2. History of hypothyroidism. 3. Anxiety 4. Hysterectomy 5. Some type of lung surgery. MEDICATIONS AT HOME 1. Keppra 500 mg t.i.d. 2. Gabapentin 300 mg t.i.d. 3. Metoprolol 100 mg daily 4. Singulair 5. Clonazepam 0.5 daily 6. Levothyroxine 7. Valsartan ALLERGIES ENALAPRIL, MORPHINE, LATEX, LIDOCAINE NEUROLOGIC EXAMINATION VITAL SIGNS: Blood pressure is 122/82, pulse 79, respirations 18, temperature 97 degrees. HIGH CORTICAL FUNCTIONS: She is alert and oriented x2, has poor recall, has mild confusion. Cranial nerves intact. Motor exam, she has normal strength in all major groups in the upper extremities. She is weak in the lower extremities, 4/5 iliopsoas, quadriceps, hamstring and tib anterior. Sensory exam is normal. Reflexes are 2+ symmetric with equivocal Babinski's bilaterally. CT of the brain is normal. LABORATORY DATA The white count is 6500, hemoglobin 11.7, hematocrit 35%, platelet count 213,000. Sodium is 138, potassium 3.4, chloride 104. The CO2 is 25.2, BUN is 11, creatinine 1.24, GFR is 45, glucose 82, AST 61, ALT 45, alk phos 39, TSH 0.636. IMPRESSION 1. Lower extremity weakness, rule out myelopathy, rule out spinal stenosis. 2. Mental status change, rule out encephalopathy, rule out other conditions such as demyelinating disease. RECOMMENDATIONS I would like to get an MRI of the brain to rule out other causes of her mental status change including a demyelinating disease. Also check an MRI of the cervical, thoracic and lumbar spine to rule out lumbar cervical or thoracic stenosis. Check labs including a vitamin B12 level. MD CARI Jones/GIULIA /6:09 PM /8:09 PM
[2017-07-27] MEDS: MONTELUKAST SODIUM 10 MG TAB PO SCH (21:48)
[2017-07-27] MEDS: clonazePAM 0.5 MG TAB PO SCH (21:48)
--- NOTE | 2017-07-27 21:48 | EKG ---
Date Performed: 07/26/2017 Time Performed: 15:24:46 PTAGE: 52 years EKG: Sinus rhythm POSSIBLE RIGHT VENTRICULAR CONDUCTION DELAY MODERATE T-WAVE ABNORMALITY ABNORMAL ECG PREVIOUS TRACING : 07/26/2017 15.22 Compared to prior tracing no significant change DOCTOR: Sarah Cast Interpretating Date/Time 07/27/2017 21:47:45
--- NOTE | 2017-07-27 21:48 | RADRPT ---
EXAM DATE/TIME: 07/27/2017 20:29 [facility] COMPARISON: No previous studies available for comparison. INDICATIONS : Spinal stenosis. MEDICAL HISTORY : None. SURGICAL HISTORY : Hysterectomy. Arturo removed from spine. ENCOUNTER: Initial ACUITY: 1 day PAIN SCORE: 5/10 LOCATION: Bilateral lower back region. TECHNIQUE: Multiplanar multisequence MRI of the lumbar spine was performed without contrast. FINDINGS: The most caudal appearing lumbar vertebra is numbered as L5. VERTEBRAE: Homogeneous signal. Normal alignment. CONUS: Normal level and configuration. T12-L1: The thecal sac has a normal diameter. No evidence of disc bulge or protrusion. The neural foramina are patent bilaterally. L1-L2: The thecal sac has a normal diameter. No evidence of disc bulge or protrusion. The neural foramina are patent bilaterally. L2-L3: The thecal sac has a normal diameter. No evidence of disc bulge or protrusion. The neural foramina are patent bilaterally. L3-L4: The disc is slightly desiccated. No significant loss of height. Tiny, broad right paracentral/foramin al protrusion with slight right foraminal encroachment. L4-L5: The disc is desiccated and has mild to moderate loss of height with vacuum phenomena. There is a smal l, broad/diffuse disc protrusion and moderate to severe bilateral facet osteoarthritis with synovitis . No significant spinal stenosis. There is mild bilateral foraminal encroachment. L5-S1: The disc is desiccated. Minimal loss of height. Diffuse bulging of the disc annulus and severe bilate ral facet osteoarthritis with synovitis noted. There is mild foraminal encroachment, mostly on the le ft. CONCLUSION: 1. Mid and lower lumbar degenerative changes as above. 2. Mild bilateral foraminal stenosis at L4/L5 and mild left foraminal stenosis at L5/S1. 3. No significant spinal stenosis at any level. 4. Bilateral osteoarthritis and synovitis of the L4/L5 and L5/S1 facets. Waylon Esquivel MD on July 27, 2017 at 21:43 Board Certified Radiologist. This report was verified electronically.
--- NOTE | 2017-07-27 22:04 | RADRPT ---
EXAM DATE/TIME: 07/27/2017 20:29 [facility] COMPARISON: No previous studies available for comparison. INDICATIONS : Myelopathy. MEDICAL HISTORY : None. SURGICAL HISTORY : Hysterectomy. Arturo removed from spine. ENCOUNTER: Initial ACUITY: 1 day PAIN SCORE: 4/10 LOCATION: Bilateral mid back region. TECHNIQUE: Multiplanar multisequence MRI of the thoracic spine was performed. FINDINGS: VERTEBRA: Mild S. shaped curvature. No subluxations. Homogeneous marrow signal. ALIGNMENT: Normal. CORD: Normal position and configuration. T1-T2: The disc is desiccated and has mild loss of height. There is marrow edema of the superior endplate of L2, presumably reactive. T2-T3: The thecal sac has a normal diameter. No evidence of disc bulge or protrusion. T3-T4: The thecal sac has a normal diameter. No evidence of disc bulge or protrusion. T4-T5: The thecal sac has a normal diameter. No evidence of disc bulge or protrusion. T5-T6: The thecal sac has a normal diameter. No evidence of disc bulge or protrusion. T6-T7: The thecal sac has a normal diameter. No evidence of disc bulge or protrusion. T7-T8: The thecal sac has a normal diameter. No evidence of disc bulge or protrusion. T8-T9: Tiny right paracentral disc protrusion without associated foraminal or spinal stenosis. T9-T10: Tiny right paracentral disc protrusion without associated foraminal or spinal stenosis. T10-T11: The thecal sac has a normal diameter. No evidence of disc bulge or protrusion. T11-T12: The thecal sac has a normal diameter. No evidence of disc bulge or protrusion. T12-L1: The thecal sac has a normal diameter. No evidence of disc bulge or protrusion. CONCLUSION: 1. Mild scoliosis and mild degenerative changes at T1/T2, T8-T9 and T9/T10. 2. Otherwise negative MRI of the thoracic spine. No foraminal or spinal stenosis demonstrated. The th oracic cord is normal. Waylon Esquivel MD on July 27, 2017 at 21:59 Board Certified Radiologist. This report was verified electronically.
--- NOTE | 2017-07-27 22:28 | RADRPT ---
EXAM DATE/TIME: 07/27/2017 20:29 [facility] COMPARISON: No previous studies available for comparison. INDICATIONS : Myelopathy. MEDICAL HISTORY : None. SURGICAL HISTORY : Hysterectomy. ENCOUNTER: Initial ACUITY: 1 day PAIN SCORE: 5/10 LOCATION: Bilateral neck region. TECHNIQUE: Multiplanar, multisequence MRI examination of the cervical spine was performed. FINDINGS: VERTEBRAE: Normal vertebral body height. Homogeneous marrow signal. ALIGNMENT: No evidence of subluxation. CORD: Normal configuration and signal. POST FOSSA: The cerebellar tonsils are normal in position. C2-C3: The disc is desiccated but otherwise normal. Mild uncovertebral and facet osteoarthritis. No foramina l or spinal stenosis. C3-C4: The disc is slightly desiccated. There is bulging of the anulus and very mild uncovertebral and facet osteoarthritis. No significant foraminal or spinal stenosis. C4-C5: The disc is slightly desiccated. There is bulging of the disc annulus and very mild bilateral uncover tebral and facet osteoarthritis. No significant foraminal or spinal stenosis. C5-C6: The disc is desiccated and there is diffuse bulging of the annulus. There is moderate right and mild left uncovertebral and facet osteoarthritis. There is mild right foraminal stenosis. C6-C7: The disc is desiccated and has mild loss of height. A very small, broad posterior disc protrusion is present and very mild bilateral uncovertebral and facet osteoarthritis. Slight effacement of the ante rior aspect of the thecal sac without cord compression or cord signal abnormality. Mild foraminal enc roachment, mostly on the left. C7-T1: Normal. CONCLUSION: 1. Mild multilevel degenerative changes as above. 2. Low-grade foraminal encroachment at C5/C6 and C6/C7. Also slight effacement of the anterior aspect of the thecal sac at C6/C7. There is no high-grade foraminal or spinal stenosis at any level. 3. Cervical cord is within normal limits. 4. No fracture or subluxation. Waylon Esquivel MD on July 27, 2017 at 22:22 Board Certified Radiologist. This report was verified electronically.
[2017-07-27] MEDS ORDERED: GADODIAMIDE PF 287 MG/ML 5 ML VIAL (for RAD MRI) IV PUSH ONE (22:56)
--- NOTE | 2017-07-27 22:58 | RADRPT ---
EXAM DATE/TIME: 07/27/2017 20:29 [facility] COMPARISON: MRI BRAIN W & W/O CONTRAST, April 26, 2015, 9:43. INDICATIONS : MS. CONTRAST: 17 cc Omniscan (gadodiamide) IV MEDICAL HISTORY : None. SURGICAL HISTORY : Hysterectomy. ENCOUNTER: Initial ACUITY: 1 day PAIN SCORE: 5/10 LOCATION: Bilateral cranial TECHNIQUE: Multiplanar, multisequence MRI of the brain was performed both prior to and following the administrat ion of paramagnetic contrast. FINDINGS: CEREBRUM: The ventricles are normal for age. No evidence of midline shift, mass lesion, hemorrhage or acute in farction. No extraaxial fluid collections are seen. The pituitary gland and suprasellar cistern are normal in configuration. WHITE MATTER: No significant signal abnormalities are seen in the white matter. POSTERIOR FOSSA: The cerebellum and brainstem are intact. The 4th ventricle is midline. The cerebellopontine angle is unremarkable. The cerebellar tonsils are normal in position. DIFFUSION IMAGING: No focal areas of restricted diffusion are seen. No evidence of acute infarction. EXTRACRANIAL: The visualized portions of the orbits and paranasal sinuses are unremarkable. POST-CONTRAST: No abnormal areas of parenchymal or dural enhancement. No evidence of blood-brain barrier breakdown. CONCLUSION: No acute intracranial abnormality. No mass or significant acute or chronic white matter changes are d emonstrated. Waylon Esquivel MD on July 27, 2017 at 22:56 Board Certified Radiologist. This report was verified electronically.
[2017-07-28 01:03] VITALS: BP 122/75; PULSE 89; RESP 18; TEMP 98.2; O2SAT 99
[2017-07-28] MEDS: HEPARIN SODIUM - SQ 10,000 UNITS/ML VIAL SQ SCH ×2 (05:44→18:49)
[2017-07-28] MEDS: POTASSIUM CHLORIDE 10 MEQ CONTROLLED RELEASE TAB PO SCH ×3 (05:44→22:03)
[2017-07-28] MEDS: LEVOTHYROXINE SODIUM 112 MCG TAB PO SCH (05:44)
[2017-07-28 07:28] LABS: BICARBONATE 25.1 MEQ/L (21.0-32.0); POTASSIUM 3.5 MEQ/L (3.5-5.1)
[2017-07-28 09:01] VITALS: BP 144/79; PULSE 89; RESP 18; TEMP 98.1; O2SAT 97
[2017-07-28] MEDS: GABAPENTIN 300 MG CAP PO SCH ×3 (09:30→17:57)
[2017-07-28] MEDS: SODIUM CHLORIDE 0.9% FLUSH 10 ML FLUSH IV FLUSH SCH ×2 (09:30→22:03)
[2017-07-28] MEDS: DOCUSATE SODIUM 50 MG/SENNA 8.6 MG TAB PO SCH ×2 (09:31→21:00)
[2017-07-28] MEDS: levETIRAcetam 500 MG TAB PO SCH ×3 (09:31→17:57)
[2017-07-28] MEDS: clonazePAM 0.5 MG TAB PO SCH ×2 (09:31→22:03)
[2017-07-28] MEDS: RESP: ALBUTEROL 1.25 MG/3 ML NEB (PRN) NEB (10:44)
--- NOTE | 2017-07-28 12:09 | HHI.PR ---
Subjective Remarks Follow up for lower ext weakness. Patient still has persistent lower extremity weakness. She is not able to walk. is at bedside. She she does not recognize him well. She is a member some distant memories well but cannot recall living with her in the same house. She does know her name, she is at [place] and that this is July and current [place] President is Chester Webber. Objective Vitals Vital Signs Date Time Temp Pulse Resp B/P (MAP) Pulse Ox O2 Delivery O2 Flow Rate FiO2 07/28/17 09:01 98.1 89 18 144/79 (100) 97 07/28/17 01:03 98.2 89 18 122/75 (91) 99 07/27/17 19:48 98.8 85 18 109/52 (71) 92 07/27/17 15:32 97.6 79 18 122/82 (95) 98 07/27/17 13:50 98.0 76 16 102/67 (79) 95 07/27/17 12:43 97.4 79 16 117/67 (84) 95 I/O 07/27/17 07/27/17 07/27/17 07/28/17 07/28/17 07/28/17 07:00 15:00 23:00 07:00 15:00 23:00 Intake Total 240 ml Output Total 200 ml Balance 40 ml Intake Oral 240 ml Output Urine Total 200 ml Result Diagram: 07/26/17 1625 07/28/17 0615 Imaging Last Impressions Thoracic Spine MRI 07/27/17 0000 Signed Impressions: Service Date/Time: Thursday, July 27, 2017 20:29 - CONCLUSION: 1. Mild scoliosis and mild degenerative changes at T1/T2, T8-T9 and T9/T10. 2. Otherwise negative MRI of the thoracic spine. No foraminal or spinal stenosis demonstrated. The thoracic cord is normal. Waylon Esquivel MD Renal Ultrasound 07/27/17 0000 Signed Impressions: Service Date/Time: Thursday, July 27, 2017 10:46 - CONCLUSION: 1. Minimal left perinephric fluid. 2. Otherwise unremarkable kidneys bilaterally. 3. Limited evaluation of the nondistended urinary bladder with Spencer catheter. Puneet Soliman MD Lumbar Spine MRI 07/27/17 0000 Signed Impressions: Service Date/Time: Thursday, July 27, 2017 20:29 - CONCLUSION: 1. Mid and lower lumbar degenerative changes as above. 2. Mild bilateral foraminal stenosis at L4/L5 and mild left foraminal stenosis at L5/S1. 3. No significant spinal stenosis at any level. 4. Bilateral osteoarthritis and synovitis of the L4/L5 and L5/S1 facets. Waylon Esquivel MD Cervical Spine MRI 07/27/17 0000 Signed Impressions: Service Date/Time: Thursday, July 27, 2017 20:29 - CONCLUSION: 1. Mild multilevel degenerative changes as above. 2. Low-grade foraminal encroachment at C5/C6 and C6/C7. Also slight effacement of the anterior aspect of the thecal sac at C6/C7. There is no high-grade foraminal or spinal stenosis at any level. 3. Cervical cord is within normal limits. 4. No fracture or subluxation. Waylon Esquivel MD Brain MRI 07/27/17 0000 Signed Impressions: Service Date/Time: Thursday, July 27, 2017 20:29 - CONCLUSION: No acute intracranial abnormality. No mass or significant acute or chronic white matter changes are demonstrated. Waylon Esquivel MD Chest X-Ray 07/26/17 1518 Signed Impressions: Service Date/Time: Wednesday, July 26, 2017 15:44 - CONCLUSION: 1. Discoid atelectasis within the right midlung field. 2. Elevation of the right hemidiaphragm. Puneet Soliman MD Head CT 07/26/17 0000 Signed Impressions: Service Date/Time: Wednesday, July 26, 2017 17:33 - CONCLUSION: Negative noncontrast CT Francisco Orozco MD Objective Remarks GENERAL: AOX3, NAD. SKIN: Warm and dry. HEAD: Normocephalic. EYES: No scleral icterus. No injection or drainage. NECK: Supple, trachea midline. No JVD or lymphadenopathy. CARDIOVASCULAR: Regular rate and rhythm without murmurs, gallops, or rubs. RESPIRATORY: Breath sounds equal bilaterally. No accessory muscle use. GASTROINTESTINAL: Abdomen soft, non-tender, nondistended. MUSCULOSKELETAL: No cyanosis, or edema. 4/5 strength bilateral legs. BACK: Nontender without obvious deformity. No CVA tenderness. Procedures None. A/P Problem List: (1) Physical deconditioning ICD Code: R53.81 - Other malaise Status: Acute (2) Acute kidney injury ICD Code: N17.9 - Acute kidney failure, unspecified Status: Acute (3) Chest pain ICD Code: R07.9 - Chest pain, unspecified (4) Hyponatremia ICD Code: E87.1 - Hypo-osmolality and hyponatremia (5) Seizure ICD Code: R56.9 - Unspecified convulsions Status: Chronic (6) HTN (hypertension) ICD Code: I10 - HTN (hypertension) Status: Chronic (7) Hypothyroid ICD Code: E03.9 - Hypothyroid Status: Chronic Assessment and Plan 52-year-old female with a history of seizures, asthma, anxiety, hypothyroidism, and hypertension presented to the ED with complaints of weakness in her bilateral lower extremities for the last month. Patient states she has intermittent lower extremity weakness for the last 1 month that has gotten worse over the last 1 week. Physical deconditioning, patient was bilateral lower extremity weakness and numbness 1 month, suspected due to dehydration and hyponatremia, will rule out any neurological abnormalities Head CT reviewed and is unremarkable -PT eval and treat -Consult neurology - Dr. Sutherland evaluated, further recommendations pending. -MRI studies were largely unremarkable for any acute findings. -No clear etiology as to why she has such profound weakness of her legs. -Appreciate neurology input. Acute kidney injury, creatinine 2.0 -2.5 L NS bolus given in the ED - Creatinine improved to 1.24 --> 0.55. -Avoid nephrotoxins Hyponatremia, acute sodium 129 -Continue IVF 1/2NS, Na improved to 138. Seizure, chronic, unsure if any recent seizures -Restart home medications Keppra -EEG - unremarkable study. Chest pain, atypical r/o ACS, troponins x 2 negative. No further work up. Hypertension - patient is currently normotensive. She takes metoprolol and valsartan at home. We'll continue to hold blood pressure medications for now. Hypothyroid, chronic -Resume home medication Synthroid -TSH 0.636 DVT prophylaxis: SCDs, Heparin Michel Bee DO Jul 28, 2017 12:09 pm
[2017-07-28] MEDS ORDERED: THIAMINE INJ 100 MG in SODIUM CHLORIDE 0.9% INJ 100 ML IV ONE (12:45)
[2017-07-28] MEDS ORDERED: FOLIC ACID 1 MG TAB PO ONE (12:45)
[2017-07-28 13:00] VITALS: BP 139/93; PULSE 96; RESP 18; TEMP 98.6; O2SAT 94
[2017-07-28] MEDS: SODIUM CHLOR 0.45% 1000 ML INJ 1,000 ML IV SCH (14:37)
[2017-07-28 16:00] VITALS: BP 144/88; PULSE 84; RESP 18; O2SAT 96
[2017-07-28 20:16] VITALS: BP 139/78; PULSE 97; RESP 18; TEMP 98.1; O2SAT 95
--- NOTE | 2017-07-28 21:02 | HHI.PR ---
Review/Management Diagnosis LE weakness. MRI s do not show etiology of her weakness. R/O transverse myelitis Plan Lumbar Puncure to assess for possible transverse myelitis. Hold heparin for LP Diagnosis/Plan: Subjective Subjective Comments No acute events reported She still c/o bilateral LE weakness--states is not able to bear weight as legs give out and she falls. Active Medications Current Medications Medications (Trade) Dose Ordered Sig/Barrera Route Start Time Stop Time Status Last Admin (Synthroid) 112 mcg DAILY@0600 PO 07/27/17 06:00 07/28/17 05:44 Sodium Chloride 1,000 ml @ 45 mls/hr [id number] IV 07/26/17 18:09 07/26/17 19:51 (NS Flush) 2 ml UNSCH PRN IV FLUSH 07/26/17 18:15 (NS Flush) 2 ml BID IV FLUSH 07/26/17 21:00 07/28/17 09:30 (Zofran Inj) 4 mg Q6H PRN IVP 07/26/17 18:15 (Heparin Inj) 5,000 units Q12H SQ 07/26/17 19:00 07/28/17 18:49 (Narcan Inj) 0.4 mg UNSCH PRN IV 07/26/17 18:15 (Jacquelyn-Colace) 1 tab BID PO 07/26/17 21:00 07/28/17 09:31 (Milk Of Magnesia Liq) 30 ml Q12H PRN PO 07/26/17 18:15 (Senokot) 17.2 mg Q12H PRN PO 07/26/17 18:15 (Dulcolax Supp) 10 mg DAILY PRN RECTAL 07/26/17 18:15 (Lactulose Liq) 30 ml DAILY PRN PO 07/26/17 18:15 (Neurontin) 300 mg TID PO 07/27/17 09:00 07/28/17 17:57 (Keppra) 500 mg TID PO 07/27/17 09:00 07/28/17 17:57 (Singulair) 10 mg HS PO 07/26/17 21:00 07/27/17 21:48 (KCl) 10 meq Q8HR PO 07/27/17 14:30 07/28/17 13:37 (KlonoPIN) 0.5 mg BID PO 07/27/17 21:00 07/28/17 09:31 (Albuterol Neb) 1.25 mg Q4HR NEB PRN NEB 07/28/17 09:45 07/28/17 10:44 Thiamine HCl 100 mg/Sodium Chloride 101 ml @ 101 mls/hr DAILY IV 07/29/17 09:00 07/31/17 08:59 (Vitamin B1) 100 mg DAILY PO 07/31/17 09:00 (Folate) 1 mg DAILY PO 07/29/17 09:00 Allergies Allergies Coded Allergies enalaprilat (Verified Allergy, Severe, Swelling, 07/26/17) morphine (Verified Allergy, Severe, Anaphylaxis, 07/26/17) latex (Verified Adverse Reaction, Severe, Rash, 07/26/17) lidocaine (Verified Adverse Reaction, Intermediate, Swelling, 07/26/17) Review of Systems Constitutional: Weakness, Fatigue Eye: Negative ENMT: Negative Respiratory: Negative Cardiovascular: Negative Musculoskeletal: Joint pain Neurologic: Negative, Alert & Oriented x4, Abnormal balance, Confusion, Numbness, Tingling, Headache Psychiatric: Negative, Anxiety, Depression All other ROS: ROS reviewed as documented in chart Exam I&O / VS 07/28/17 07/28/17 07/29/17 15:00 23:00 07:00 Intake Total 100 ml Output Total 350 ml Balance -250 ml IV Total 100 ml Output Urine Total 350 ml Vital Signs Date Time Temp Pulse Resp B/P (MAP) Pulse Ox O2 Delivery O2 Flow Rate FiO2 07/28/17 20:16 98.1 97 18 139/78 (98) 95 07/28/17 16:00 84 18 144/88 (106) 96 07/28/17 13:00 98.6 96 18 139/93 (108) 94 07/28/17 09:01 98.1 89 18 144/79 (100) 97 07/28/17 01:03 98.2 89 18 122/75 (91) 99 General: Alert and Oriented, No acute distress Eye: EOMI Musculoskeletal: ROM Psychiatric: Cooperative Exam Comments alert, oriented times two, follows commands CN intact MOTOR 5/5 BUE, 4+/5 bilateral iliopsoas, 5/5 bilateral quadriceps, 5/5 bilateral hamstring. 5/5 bilateral tibialis anterior Objective Radiology Results MRI brain---normal MRI cervical spine--no significant stenosis and cord is normal MRI thoracic spine--normal MRI lumbar--mild spondylosis L34, L45 without significant stenosis Micro and Labs Laboratory Tests Test 07/27/17 22:15 07/28/17 06:15 Erythrocyte Sedimentation Rate 16 Blood Urea Nitrogen 6 Creatinine 0.55 Random Glucose 82 Calcium Level 8.4 Sodium Level 138 Potassium Level 3.5 Chloride Level 104 Carbon Dioxide Level 25.1 Anion Gap 9 Estimat Glomerular Filtration Rate 115 Date/Time Source Procedure Growth Status 07/26/17 18:15 Blood Line Aerobic Blood Culture - Preliminary NO GROWTH IN 2 DAYS Resulted 07/26/17 18:15 Blood Line Anaerobic Blood Culture - Preliminary NO GROWTH IN 2 DAYS Resulted Larry Sutherland PhD Jul 28, 2017 21:02
[2017-07-28] MEDS: MONTELUKAST SODIUM 10 MG TAB PO SCH (22:03)
[2017-07-29] VITALS (7 sets, daily range): BP systolic 134–187; BP diastolic 87–102; PULSE 80–91; RESP 16–20; TEMP 97.9–98.5; O2SAT 94–98
[2017-07-29] MEDS: POTASSIUM CHLORIDE 10 MEQ CONTROLLED RELEASE TAB PO SCH ×3 (06:26→21:27)
[2017-07-29] MEDS: LEVOTHYROXINE SODIUM 112 MCG TAB PO SCH (06:26)
[2017-07-29] MEDS: RESP: ALBUTEROL 1.25 MG/3 ML NEB (PRN) NEB (06:36)
[2017-07-29] MEDS: SODIUM CHLOR 0.45% 1000 ML INJ 1,000 ML IV SCH (06:41)
[2017-07-29 08:48] LABS: APTT (PATIENT) 24.3 SEC (24.3-30.1); PROTHROMBIN TIME - PATIENT 11.1 SEC (9.8-11.6)
[2017-07-29] MEDS: DOCUSATE SODIUM 50 MG/SENNA 8.6 MG TAB PO SCH ×2 (09:17→21:00)
[2017-07-29] MEDS: SODIUM CHLORIDE 0.9% FLUSH 10 ML FLUSH IV FLUSH SCH ×2 (09:17→21:27)
[2017-07-29] MEDS: levETIRAcetam 500 MG TAB PO SCH ×3 (09:17→18:39)
[2017-07-29] MEDS: GABAPENTIN 300 MG CAP PO SCH ×3 (09:17→18:39)
[2017-07-29] MEDS: FOLIC ACID 1 MG TAB PO SCH (09:17)
[2017-07-29] MEDS: clonazePAM 0.5 MG TAB PO SCH ×2 (09:17→21:27)
--- NOTE | 2017-07-29 09:29 | HHI.PR ---
Subjective Remarks Follow up for lower ext weakness. Patient still feels her legs are weak. No fever, chills. Objective Vitals Vital Signs Date Time Temp Pulse Resp B/P (MAP) Pulse Ox O2 Delivery O2 Flow Rate FiO2 07/29/17 08:18 98.5 87 18 147/92 (110) 94 07/29/17 04:03 98.3 90 16 158/89 (112) 95 07/29/17 00:00 98.3 85 18 187/102 (130) 97 07/28/17 20:16 98.1 97 18 139/78 (98) 95 07/28/17 16:00 84 18 144/88 (106) 96 07/28/17 13:00 98.6 96 18 139/93 (108) 94 I/O 07/28/17 07/28/17 07/28/17 07/29/17 07/29/17 07/29/17 07:00 15:00 23:00 07:00 15:00 23:00 Intake Total 480 ml 350 ml Output Total 350 ml 1550 ml Balance 130 ml -1200 ml Intake Oral 200 ml 100 ml IV Total 280 ml 250 ml Output Urine Total 350 ml 1550 ml # Bowel Movements 1 Result Diagram: 07/26/17 1625 07/28/17 0615 Imaging Last Impressions Lumbar Puncture Fluoroscopy 07/29/17 0000 Signed Impressions: Service Date/Time: Saturday, July 29, 2017 10:40 - CONCLUSION: Uncomplicated fluoroscopically guided lumbar puncture. Waylon Kingston MD Thoracic Spine MRI 07/27/17 0000 Signed Impressions: Service Date/Time: Thursday, July 27, 2017 20:29 - CONCLUSION: 1. Mild scoliosis and mild degenerative changes at T1/T2, T8-T9 and T9/T10. 2. Otherwise negative MRI of the thoracic spine. No foraminal or spinal stenosis demonstrated. The thoracic cord is normal. Waylon Esquivel MD Renal Ultrasound 07/27/17 0000 Signed Impressions: Service Date/Time: Thursday, July 27, 2017 10:46 - CONCLUSION: 1. Minimal left perinephric fluid. 2. Otherwise unremarkable kidneys bilaterally. 3. Limited evaluation of the nondistended urinary bladder with Spencer catheter. Puneet Soliman MD Lumbar Spine MRI 07/27/17 0000 Signed Impressions: Service Date/Time: Thursday, July 27, 2017 20:29 - CONCLUSION: 1. Mid and lower lumbar degenerative changes as above. 2. Mild bilateral foraminal stenosis at L4/L5 and mild left foraminal stenosis at L5/S1. 3. No significant spinal stenosis at any level. 4. Bilateral osteoarthritis and synovitis of the L4/L5 and L5/S1 facets. Waylon Esquivel MD Cervical Spine MRI 07/27/17 0000 Signed Impressions: Service Date/Time: Thursday, July 27, 2017 20:29 - CONCLUSION: 1. Mild multilevel degenerative changes as above. 2. Low-grade foraminal encroachment at C5/C6 and C6/C7. Also slight effacement of the anterior aspect of the thecal sac at C6/C7. There is no high-grade foraminal or spinal stenosis at any level. 3. Cervical cord is within normal limits. 4. No fracture or subluxation. Waylon Esquivel MD Brain MRI 07/27/17 0000 Signed Impressions: Service Date/Time: Thursday, July 27, 2017 20:29 - CONCLUSION: No acute intracranial abnormality. No mass or significant acute or chronic white matter changes are demonstrated. Waylon Esquivel MD Chest X-Ray 07/26/17 1518 Signed Impressions: Service Date/Time: Wednesday, July 26, 2017 15:44 - CONCLUSION: 1. Discoid atelectasis within the right midlung field. 2. Elevation of the right hemidiaphragm. Puneet Soliman MD Head CT 07/26/17 0000 Signed Impressions: Service Date/Time: Wednesday, July 26, 2017 17:33 - CONCLUSION: Negative noncontrast CT Francisco Orozco MD Objective Remarks GENERAL: AOX3, NAD. SKIN: Warm and dry. HEAD: Normocephalic. EYES: No scleral icterus. No injection or drainage. NECK: Supple, trachea midline. No JVD or lymphadenopathy. CARDIOVASCULAR: Regular rate and rhythm without murmurs, gallops, or rubs. RESPIRATORY: Breath sounds equal bilaterally. No accessory muscle use. GASTROINTESTINAL: Abdomen soft, non-tender, nondistended. MUSCULOSKELETAL: No cyanosis, or edema. 4/5 strength bilateral legs. BACK: Nontender without obvious deformity. No CVA tenderness. Procedures LP by Interventional Radiology. A/P Problem List: (1) Physical deconditioning ICD Code: R53.81 - Other malaise Status: Acute (2) Acute kidney injury ICD Code: N17.9 - Acute kidney failure, unspecified Status: Acute (3) Chest pain ICD Code: R07.9 - Chest pain, unspecified (4) Hyponatremia ICD Code: E87.1 - Hypo-osmolality and hyponatremia (5) Seizure ICD Code: R56.9 - Unspecified convulsions Status: Chronic (6) HTN (hypertension) ICD Code: I10 - HTN (hypertension) Status: Chronic (7) Hypothyroid ICD Code: E03.9 - Hypothyroid Status: Chronic Assessment and Plan 52-year-old female with a history of seizures, asthma, anxiety, hypothyroidism, and hypertension presented to the ED with complaints of weakness in her bilateral lower extremities for the last month. Patient states she has intermittent lower extremity weakness for the last 1 month that has gotten worse over the last 1 week. Physical deconditioning, patient was bilateral lower extremity weakness and numbness 1 month, suspected due to dehydration and hyponatremia, will rule out any neurological abnormalities Head CT reviewed and is unremarkable -PT eval and treat -Consult neurology - Dr. Sutherland evaluated, cleared for discharge from neurological standpoint. -MRI studies were largely unremarkable for any acute findings. -LP did not reveal any etiology. Acute kidney injury, creatinine 2.0 -2.5 L NS bolus given in the ED - Creatinine improved to 1.24 --> 0.55. -Avoid nephrotoxins Hyponatremia, acute sodium 129 -Continue IVF 1/2NS, Na improved to 138. Seizure, chronic, unsure if any recent seizures -Restart home medications Keppra -EEG - unremarkable study. Chest pain, atypical r/o ACS, troponins x 2 negative. No further work up. Hypertension - patient is currently normotensive. She takes metoprolol and valsartan at home. We'll continue to hold blood pressure medications for now. Hypothyroid, chronic -Resume home medication Synthroid -TSH 0.636 DVT prophylaxis: SCDs, Heparin Michel Bee DO Jul 29, 2017 09:29
[2017-07-29] MEDS: THIAMINE INJ 100 MG in SODIUM CHLORIDE 0.9% INJ 100 ML IV SCH (10:30)
[2017-07-29] MEDS ORDERED: CHLOROPROCAINE 2% ONE (10:47)
--- NOTE | 2017-07-29 12:40 | RADRPT ---
EXAM DATE/TIME: 07/29/2017 10:40 [facility] COMPARISON: No previous studies available for comparison. INDICATIONS : Patient with lower extremety weakness. R/O myelitis. MEDICAL HISTORY : 1. seizures 2. asthma 3. anxiety 4. HTN 5. hypothyroidism 6. LE weakness SURGICAL HISTORY : 1. Hysterectomy 2. Lung surgery ENCOUNTER: Initial ACUITY: 1 month PAIN SCORE: 0/10 LUMBAR PUNCTURE TIME: 1117 hours FLUORO TIME: 1.1 minutes IMAGE SERIES: 0 ACCESS LEVEL: L3-4 FLUID: 17 cc of clear CSF was collected and sent to the laboratory for analysis. PROCEDURE : 1. Fluoroscopic guided lumbar puncture. The risks, benefits and alternatives to the procedure were explained and verbal and written consent w as obtained. The site was prepped in sterile fashion. Full sterile technique was used, including ca p, mask, sterile gloves and gown and a large sterile sheet. Hand hygiene and 2% chlorhexidine and/or betadine/alcohol prep was utilized per protocol for cutaneous antisepsis. The skin and subcutaneous tissues were infiltrated with local anesthetic solution. With fluoroscopic guidance the lumbar thecal sac was punctured at the level above. The fluid describ ed above was removed without difficulty. The patient tolerated the procedure well and there were no complications. CONCLUSION: Uncomplicated fluoroscopically guided lumbar puncture. Waylon Kingston MD on July 29, 2017 at 12:38 Board Certified Radiologist. This report was verified electronically.
--- NOTE | 2017-07-29 12:45 | PD.RAD ---
Post Procedure Progress Note Pre Procedure Diagnosis: (1) Myelitis Post Procedure Diagnosis: (1) Myelitis Procedure Date: Jul 29, 2017 Supervising Radiologist: Waylon Kingston Proceduralist/Assist: Michelle Scales, RT(R)(CV), Tamar Posadas RT(R) Anesthesia: Local Plan of Activity Patient to Unit: ROPU Patient Condition: Good See PACS Report for procedural detail/treatment Spinal Procedure Lumbar Puncture L3-L4 Fluid Removal (CCs): 17 Fluid Description: Clear Puncture Time: 11:17 Waylon Kingston MD Jul 29, 2017 12:44
[2017-07-29 13:32] LABS: CSF LYMPHOCYTES 56 %; CSF NEUTROPHILS 38 %; WBC TUBE #4 2 /MM3 (0-10)
[2017-07-29 13:34] LABS: GROSS BLOOD TUBE #1 0 (0); SUPERNATE COLOR TUBE #1 CLEAR (CLEAR); VOLUME TUBE # 1 2.8 ML
[2017-07-29 13:35] LABS: GROSS BLOOD TUBE #2 0 (0); GROSS BLOOD TUBE #3 0 (0); SUPERNATE COLOR TUBE #2 CLEAR (CLEAR); SUPERNATE COLOR TUBE #3 CLEAR (CLEAR); VOLUME TUBE # 3 3.8 ML
[2017-07-29 13:42] LABS: GROSS BLOOD TUBE #4 TRACE (0)
[2017-07-29 13:43] LABS: SUPERNATE COLOR TUBE #4 CLEAR (CLEAR)
--- NOTE | 2017-07-29 18:56 | HHI.PR ---
Review/Management Diagnosis LE weakness. MRI s do not show etiology of her weakness. CSF is normal except mild elevation in protein which is nonspecific. No sign of transverse myelitis. No evidence for neurologic etiology of sx. Ok from neuro standpoint to dc with Physical therapy and follow up with me in office 2 weeks Plan Lumbar Puncure to assess for possible transverse myelitis. Hold heparin for LP Diagnosis/Plan: Subjective Subjective Comments No acute events reported No headache Active Medications Current Medications Medications (Trade) Dose Ordered Sig/Barrera Route Start Time Stop Time Status Last Admin (Synthroid) 112 mcg DAILY@0600 PO 07/27/17 06:00 07/29/17 06:26 Sodium Chloride 1,000 ml @ 45 mls/hr [id number] IV 07/26/17 18:09 07/29/17 06:41 (NS Flush) 2 ml UNSCH PRN IV FLUSH 07/26/17 18:15 (NS Flush) 2 ml BID IV FLUSH 07/26/17 21:00 07/29/17 09:17 (Zofran Inj) 4 mg Q6H PRN IVP 07/26/17 18:15 (Narcan Inj) 0.4 mg UNSCH PRN IV 07/26/17 18:15 (Jacquelyn-Colace) 1 tab BID PO 07/26/17 21:00 07/29/17 09:17 (Milk Of Magnesia Liq) 30 ml Q12H PRN PO 07/26/17 18:15 (Senokot) 17.2 mg Q12H PRN PO 07/26/17 18:15 (Dulcolax Supp) 10 mg DAILY PRN RECTAL 07/26/17 18:15 (Lactulose Liq) 30 ml DAILY PRN PO 07/26/17 18:15 (Neurontin) 300 mg TID PO 07/27/17 09:00 07/29/17 18:39 (Keppra) 500 mg TID PO 07/27/17 09:00 07/29/17 18:39 (Singulair) 10 mg HS PO 07/26/17 21:00 07/28/17 22:03 (KCl) 10 meq Q8HR PO 07/27/17 14:30 07/29/17 13:40 (KlonoPIN) 0.5 mg BID PO 9/13/17 21:00 07/29/17 09:17 (Albuterol Neb) 1.25 mg Q4HR NEB PRN NEB 07/28/17 09:45 07/29/17 06:36 Thiamine HCl 100 mg/Sodium Chloride 101 ml @ 101 mls/hr DAILY IV 07/29/17 09:00 07/31/17 08:59 07/29/17 10:30 (Vitamin B1) 100 mg DAILY PO 07/31/17 09:00 (Folate) 1 mg DAILY PO 07/29/17 09:00 07/29/17 09:17 Allergies Allergies Coded Allergies enalaprilat (Verified Allergy, Severe, Swelling, 07/26/17) morphine (Verified Allergy, Severe, Anaphylaxis, 07/26/17) latex (Verified Adverse Reaction, Severe, Rash, 07/26/17) lidocaine (Verified Adverse Reaction, Intermediate, Swelling, 07/26/17) Review of Systems Constitutional: Weakness, Fatigue Eye: Negative ENMT: Negative Respiratory: Negative Cardiovascular: Negative Musculoskeletal: Joint pain Neurologic: Negative, Alert & Oriented x4, Abnormal balance, Confusion, Numbness, Tingling, Headache Psychiatric: Negative, Anxiety, Depression All other ROS: ROS reviewed as documented in chart Exam I&O / VS 07/29/17 07/29/17 07/30/17 15:00 23:00 07:00 Intake Total 350 ml Output Total 1550 ml Balance -1200 ml Intake Oral 100 ml IV Total 250 ml Output Urine Total 1550 ml Vital Signs Date Time Temp Pulse Resp B/P (MAP) Pulse Ox O2 Delivery O2 Flow Rate FiO2 07/29/17 16:04 98.5 86 18 157/95 (115) 97 07/29/17 12:00 97.9 80 20 134/92 (106) 98 07/29/17 08:18 98.5 87 18 147/92 (110) 94 07/29/17 04:03 98.3 90 16 158/89 (112) 95 07/29/17 00:00 98.3 85 18 187/102 (130) 97 07/28/17 20:16 98.1 97 18 139/78 (98) 95 General: Alert and Oriented, No acute distress Eye: EOMI Musculoskeletal: ROM Psychiatric: Cooperative Exam Comments alert, oriented times two, follows commands CN intact MOTOR 5/5 BUE, 4+/5 bilateral iliopsoas, 5/5 bilateral quadriceps, 5/5 bilateral hamstring. 5/5 bilateral tibialis anterior Objective Micro and Labs Laboratory Tests Test 07/29/17 08:08 07/29/17 11:17 Prothrombin Time 11.1 Prothromb Time International Ratio 1.0 Activated Partial Thromboplast Time 24.3 CSF Volume (Tube 1) 2.8 CSF Supernatant Color (tube 1) CLEAR CSF Gross Blood (Tube 1) 0 CSF WBC (Tube 1) CSF Volume (Tube 2) 3.0 CSF Supernatant Color (tube 2) CLEAR CSF Gross Blood (Tube 2) 0 CSF Volume (Tube 3) 3.8 CSF Supernatant Color (tube 3) CLEAR CSF Gross Blood (Tube 3) 0 CSF Volume (Tube 4) 7.0 CSF Supernatant Color (tube 4) CLEAR CSF Gross Blood (Tube 4) TRACE CSF WBC (Tube 4) 2 CSF RBC (Tube 4) 102 CSF Neutrophils 38 CSF Lymphocytes 56 CSF Histiocytes 6 CSF Glucose 47 CSF Total Protein 48.4 Date/Time Source Procedure Growth Status 07/26/17 18:15 Blood Line Aerobic Blood Culture - Preliminary NO GROWTH IN 3 DAYS Resulted 07/26/17 18:15 Blood Line Anaerobic Blood Culture - Preliminary NO GROWTH IN 3 DAYS Resulted 07/29/17 11:17 Cerebral Spinal Fluid Lumbar Puncture Fungal Smear - Final NO FUNGAL ELEMENTS SEEN. Resulted 07/29/17 11:17 Cerebral Spinal Fluid Lumbar Puncture Fungal Culture Pending Resulted Larry Sutherland PhD MD Jul 29, 2017 18:56
[2017-07-29] MEDS ORDERED: METOPROLOL TARTRATE 100 MG TAB PO SCH (21:00)
[2017-07-29] MEDS: MONTELUKAST SODIUM 10 MG TAB PO SCH (21:27)
[2017-07-29] MEDS: ACETAMINOPHEN/HYDROcodone 325 MG/5 MG TAB PO PRN (21:30)
[2017-07-30] MEDS: RESP: ALBUTEROL 1.25 MG/3 ML NEB (PRN) NEB (05:36)
[2017-07-30 05:42] VITALS: BP 131/99; PULSE 87; RESP 18; TEMP 98; O2SAT 95
[2017-07-30] MEDS: POTASSIUM CHLORIDE 10 MEQ CONTROLLED RELEASE TAB PO SCH ×3 (05:59→22:36)
[2017-07-30] MEDS: LEVOTHYROXINE SODIUM 112 MCG TAB PO SCH (05:59)
[2017-07-30] MEDS: ACETAMINOPHEN/HYDROcodone 325 MG/5 MG TAB PO PRN ×2 (06:32→17:40)
[2017-07-30 08:00] VITALS: BP 154/94; PULSE 92; RESP 20; TEMP 97.9; O2SAT 94
[2017-07-30] MEDS: DOCUSATE SODIUM 50 MG/SENNA 8.6 MG TAB PO SCH ×2 (09:00→22:35)
[2017-07-30] MEDS ORDERED: VALSARTAN 160 MG TAB PO SCH (09:00)
--- NOTE | 2017-07-30 09:06 | HHI.PR ---
Subjective Remarks Follow up for lower ext weakness. Patient reports bumble bee sensation on both her feet. No fever, chills. Objective Vitals Vital Signs Date Time Temp Pulse Resp B/P (MAP) Pulse Ox O2 Delivery O2 Flow Rate FiO2 07/30/17 08:00 97.9 92 20 154/94 (114) 94 07/30/17 05:42 98.0 87 18 131/99 (110) 95 07/29/17 23:47 98.1 91 18 138/87 (104) 94 07/29/17 22:30 12 07/29/17 19:42 98.4 89 18 153/102 (119) 95 07/29/17 16:04 98.5 86 18 157/95 (115) 97 07/29/17 12:00 97.9 80 20 134/92 (106) 98 I/O 07/29/17 07/29/17 07/29/17 07/30/17 07/30/17 07/30/17 06:59 14:59 22:59 06:59 14:59 22:59 Intake Total 350 ml 480 ml Output Total 1550 ml 1300 ml Balance -1200 ml 480 ml -1300 ml Intake Oral 100 ml 480 ml IV Total 250 ml Output Urine Total 1550 ml 1300 ml # Voids 1 Result Diagram: 07/26/17 1625 07/28/17 0615 Objective Remarks GENERAL: AOX3, NAD. SKIN: Warm and dry. HEAD: Normocephalic. EYES: No scleral icterus. No injection or drainage. NECK: Supple, trachea midline. No JVD or lymphadenopathy. CARDIOVASCULAR: Regular rate and rhythm without murmurs, gallops, or rubs. RESPIRATORY: Breath sounds equal bilaterally. No accessory muscle use. GASTROINTESTINAL: Abdomen soft, non-tender, nondistended. MUSCULOSKELETAL: No cyanosis, or edema. 4/5 strength bilateral legs. BACK: Nontender without obvious deformity. No CVA tenderness. Procedures LP by Interventional Radiology. A/P Problem List: (1) Physical deconditioning ICD Code: R53.81 - Other malaise Status: Acute (2) Acute kidney injury ICD Code: N17.9 - Acute kidney failure, unspecified Status: Acute (3) Chest pain ICD Code: R07.9 - Chest pain, unspecified (4) Hyponatremia ICD Code: E87.1 - Hypo-osmolality and hyponatremia (5) Seizure ICD Code: R56.9 - Unspecified convulsions Status: Chronic (6) HTN (hypertension) ICD Code: I10 - HTN (hypertension) Status: Chronic (7) Hypothyroid ICD Code: E03.9 - Hypothyroid Status: Chronic Assessment and Plan 52-year-old female with a history of seizures, asthma, anxiety, hypothyroidism, and hypertension presented to the ED with complaints of weakness in her bilateral lower extremities for the last month. Patient states she has intermittent lower extremity weakness for the last 1 month that has gotten worse over the last 1 week. Physical deconditioning, patient was bilateral lower extremity weakness and numbness 1 month, suspected due to dehydration and hyponatremia, will rule out any neurological abnormalities Head CT reviewed and is unremarkable -PT eval and treat -Consult neurology - Dr. Sutherland evaluated, cleared for discharge from neurological standpoint. -MRI studies were largely unremarkable for any acute findings. -LP did not reveal any etiology. Probable neuropathy - Will start Gabapentin 200mg TID to see if this helps. Acute kidney injury, creatinine 2.0 -2.5 L NS bolus given in the ED - Creatinine improved to 1.24 --> 0.55. -Avoid nephrotoxins Hyponatremia, acute sodium 129 -Continue IVF 1/2NS, Na improved to 138. Seizure, chronic, unsure if any recent seizures -Restart home medications Keppra -EEG - unremarkable study. Chest pain, atypical r/o ACS, troponins x 2 negative. No further work up. Hypertension - patient is currently normotensive. She takes metoprolol and valsartan at home. We'll continue to hold blood pressure medications for now. Hypothyroid, chronic -Resume home medication Synthroid -TSH 0.636 DVT prophylaxis: SCDs, Heparin Michel Bee DO Jul 30, 2017 09:06
[2017-07-30] MEDS: THIAMINE INJ 100 MG in SODIUM CHLORIDE 0.9% INJ 100 ML IV SCH (10:10)
[2017-07-30] MEDS: clonazePAM 0.5 MG TAB PO SCH ×2 (10:10→22:36)
[2017-07-30] MEDS: SODIUM CHLORIDE 0.9% FLUSH 10 ML FLUSH IV FLUSH SCH ×2 (10:11→22:36)
[2017-07-30] MEDS: GABAPENTIN 300 MG CAP PO SCH ×3 (10:11→17:39)
[2017-07-30] MEDS: FOLIC ACID 1 MG TAB PO SCH (10:11)
[2017-07-30] MEDS: levETIRAcetam 500 MG TAB PO SCH ×3 (10:11→17:39)
[2017-07-30] MEDS: SODIUM CHLOR 0.45% 1000 ML INJ 1,000 ML IV SCH (11:05)
[2017-07-30 12:00] VITALS: BP 122/92; PULSE 87; RESP 16; TEMP 97.6; O2SAT 97
[2017-07-30 16:00] VITALS: BP 147/94; PULSE 91; RESP 20; TEMP 98.2; O2SAT 97
[2017-07-30 20:00] VITALS: BP 147/82; PULSE 99; RESP 20; TEMP 97.6; O2SAT 97
[2017-07-30] MEDS: MONTELUKAST SODIUM 10 MG TAB PO SCH (22:35)
[2017-07-31] VITALS (7 sets, daily range): BP systolic 123–160; BP diastolic 68–97; PULSE 83–96; RESP 16–18; TEMP 97.4–98.8; O2SAT 95–97
[2017-07-31] MEDS: ACETAMINOPHEN/HYDROcodone 325 MG/5 MG TAB PO PRN ×4 (00:17→18:33)
[2017-07-31] MEDS: LEVOTHYROXINE SODIUM 112 MCG TAB PO SCH (05:37)
[2017-07-31] MEDS: POTASSIUM CHLORIDE 10 MEQ CONTROLLED RELEASE TAB PO SCH ×3 (05:38→21:38)
[2017-07-31] MEDS: cloNIDine HCL 0.1 MG TAB PO PRN (05:38)
[2017-07-31] MEDS: GABAPENTIN 300 MG CAP PO SCH ×3 (09:00→18:00)
[2017-07-31] MEDS: DOCUSATE SODIUM 50 MG/SENNA 8.6 MG TAB PO SCH ×2 (09:00→21:00)
[2017-07-31] MEDS: SODIUM CHLOR 0.45% 1000 ML INJ 1,000 ML IV SCH (09:19)
[2017-07-31] MEDS: SODIUM CHLORIDE 0.9% FLUSH 10 ML FLUSH IV FLUSH SCH ×2 (09:36→21:37)
[2017-07-31] MEDS: THIAMINE HCL 100 MG TAB PO SCH (09:37)
[2017-07-31] MEDS: clonazePAM 0.5 MG TAB PO SCH ×2 (09:37→21:38)
[2017-07-31] MEDS: levETIRAcetam 500 MG TAB PO SCH ×3 (09:37→18:32)
[2017-07-31] MEDS: FOLIC ACID 1 MG TAB PO SCH (09:38)
[2017-07-31] MEDS: GABAPENTIN 100 MG CAP PO SCH ×3 (09:44→18:32)
--- NOTE | 2017-07-31 11:02 | HHI.PR ---
Subjective Remarks Follow up for lower ext weakness. Patient is doing well. She says her legs are somewhat improved. No fever, chills. Waiting for insurance approval for SNF arrangements. Objective Vitals Vital Signs Date Time Temp Pulse Resp B/P (MAP) Pulse Ox O2 Delivery O2 Flow Rate FiO2 07/31/17 08:00 98.8 85 18 138/84 (102) 96 07/31/17 04:00 98.1 90 18 160/68 (98) 97 07/31/17 01:27 18 07/31/17 00:00 98.5 92 16 143/74 (97) 96 07/30/17 20:00 97.6 99 20 147/82 (103) 97 07/30/17 16:00 98.2 91 20 147/94 (111) 97 07/30/17 12:00 97.6 87 16 122/92 (102) 97 I/O 07/30/17 07/30/17 07/30/17 07/31/17 07/31/17 07/31/17 07:00 15:00 23:00 07:00 15:00 23:00 Intake Total 720 ml 220 ml 360 ml Output Total 1300 ml 575 ml 1 ml 800 ml Balance -1300 ml 145 ml 219 ml -440 ml Intake Oral 720 ml 220 ml 360 ml Output Urine Total 1300 ml 575 ml 800 ml Stool Total 1 ml # Voids 1 1 Result Diagram: 07/28/17 0615 Imaging Last Impressions Lumbar Puncture Fluoroscopy 07/29/17 0000 Signed Impressions: Service Date/Time: Saturday, July 29, 2017 10:40 - CONCLUSION: Uncomplicated fluoroscopically guided lumbar puncture. Waylon Kingston MD Thoracic Spine MRI 07/27/17 0000 Signed Impressions: Service Date/Time: Thursday, July 27, 2017 20:29 - CONCLUSION: 1. Mild scoliosis and mild degenerative changes at T1/T2, T8-T9 and T9/T10. 2. Otherwise negative MRI of the thoracic spine. No foraminal or spinal stenosis demonstrated. The thoracic cord is normal. Waylon Esquivel MD Renal Ultrasound 07/27/17 0000 Signed Impressions: Service Date/Time: Thursday, July 27, 2017 10:46 - CONCLUSION: 1. Minimal left perinephric fluid. 2. Otherwise unremarkable kidneys bilaterally. 3. Limited evaluation of the nondistended urinary bladder with Spencer catheter. Puneet Soliman MD Lumbar Spine MRI 07/27/17 0000 Signed Impressions: Service Date/Time: Thursday, July 27, 2017 20:29 - CONCLUSION: 1. Mid and lower lumbar degenerative changes as above. 2. Mild bilateral foraminal stenosis at L4/L5 and mild left foraminal stenosis at L5/S1. 3. No significant spinal stenosis at any level. 4. Bilateral osteoarthritis and synovitis of the L4/L5 and L5/S1 facets. Waylon Esquivel MD Cervical Spine MRI 07/27/17 0000 Signed Impressions: Service Date/Time: Thursday, July 27, 2017 20:29 - CONCLUSION: 1. Mild multilevel degenerative changes as above. 2. Low-grade foraminal encroachment at C5/C6 and C6/C7. Also slight effacement of the anterior aspect of the thecal sac at C6/C7. There is no high-grade foraminal or spinal stenosis at any level. 3. Cervical cord is within normal limits. 4. No fracture or subluxation. Waylon Esquivel MD Brain MRI 07/27/17 0000 Signed Impressions: Service Date/Time: Thursday, July 27, 2017 20:29 - CONCLUSION: No acute intracranial abnormality. No mass or significant acute or chronic white matter changes are demonstrated. Waylon Esquivel MD Chest X-Ray 07/26/17 1518 Signed Impressions: Service Date/Time: Wednesday, July 26, 2017 15:44 - CONCLUSION: 1. Discoid atelectasis within the right midlung field. 2. Elevation of the right hemidiaphragm. Puneet Soliman MD Head CT 07/26/17 0000 Signed Impressions: Service Date/Time: Wednesday, July 26, 2017 17:33 - CONCLUSION: Negative noncontrast CT Francisco Orozco MD Objective Remarks GENERAL: AOX3, NAD. SKIN: Warm and dry. HEAD: Normocephalic. EYES: No scleral icterus. No injection or drainage. NECK: Supple, trachea midline. No JVD or lymphadenopathy. CARDIOVASCULAR: Regular rate and rhythm without murmurs, gallops, or rubs. RESPIRATORY: Breath sounds equal bilaterally. No accessory muscle use. GASTROINTESTINAL: Abdomen soft, non-tender, nondistended. MUSCULOSKELETAL: No cyanosis, or edema. 4/5 strength bilateral legs. BACK: Nontender without obvious deformity. No CVA tenderness. Procedures LP by Interventional Radiology. A/P Problem List: (1) Physical deconditioning ICD Code: R53.81 - Other malaise Status: Acute (2) Acute kidney injury ICD Code: N17.9 - Acute kidney failure, unspecified Status: Acute (3) Chest pain ICD Code: R07.9 - Chest pain, unspecified (4) Hyponatremia ICD Code: E87.1 - Hypo-osmolality and hyponatremia (5) Seizure ICD Code: R56.9 - Unspecified convulsions Status: Chronic (6) HTN (hypertension) ICD Code: I10 - HTN (hypertension) Status: Chronic (7) Hypothyroid ICD Code: E03.9 - Hypothyroid Status: Chronic Assessment and Plan 52-year-old female with a history of seizures, asthma, anxiety, hypothyroidism, and hypertension presented to the ED with complaints of weakness in her bilateral lower extremities for the last month. Patient states she has intermittent lower extremity weakness for the last 1 month that has gotten worse over the last 1 week. Physical deconditioning, patient was bilateral lower extremity weakness and numbness 1 month, suspected due to dehydration and hyponatremia, will rule out any neurological abnormalities Head CT reviewed and is unremarkable -PT eval and treat -Consult neurology - Dr. Sutherland evaluated, cleared for discharge from neurological standpoint. -MRI studies were largely unremarkable for any acute findings. -LP did not reveal any etiology. Probable neuropathy - Will start Gabapentin 200mg TID to see if this helps. Acute kidney injury, creatinine 2.0 -2.5 L NS bolus given in the ED - Creatinine improved to 1.24 --> 0.55. -Avoid nephrotoxins Hyponatremia, acute sodium 129 -Continue IVF 1/2NS, Na improved to 138. Seizure, chronic, unsure if any recent seizures -Restart home medications Keppra -EEG - unremarkable study. Chest pain, atypical r/o ACS, troponins x 2 negative. No further work up. Hypertension - patient is currently normotensive. She takes metoprolol and valsartan at home. We'll continue to hold blood pressure medications for now. Hypothyroid, chronic -Resume home medication Synthroid -TSH 0.636 DVT prophylaxis: SCDs, Heparin Discharge plan: Waiting for SNF arrangements. Michel Bee DO Jul 31, 2017 11:02 am
[2017-07-31] MEDS: RESP: ALBUTEROL 1.25 MG/3 ML NEB (PRN) NEB (16:08)
[2017-07-31 17:46] LABS: LYME IGG IMMUNOBLOT CSF None Detected bands (None Detected); LYME IGM IMMUNOBLOT CSF None Detected bands (None Detected)
[2017-07-31] MEDS: MONTELUKAST SODIUM 10 MG TAB PO SCH (21:37)
[2017-08-01 03:42] VITALS: BP 166/85; PULSE 97; RESP 18; TEMP 98.5; O2SAT 96
[2017-08-01] MEDS: ACETAMINOPHEN/HYDROcodone 325 MG/5 MG TAB PO PRN ×3 (03:45→16:05)
[2017-08-01] MEDS: POTASSIUM CHLORIDE 10 MEQ CONTROLLED RELEASE TAB PO SCH ×3 (05:30→21:03)
[2017-08-01] MEDS: LEVOTHYROXINE SODIUM 112 MCG TAB PO SCH (05:30)
[2017-08-01] MEDS: SODIUM CHLOR 0.45% 1000 ML INJ 1,000 ML IV SCH (05:30)
[2017-08-01 08:00] VITALS: BP 170/90; PULSE 98; RESP 20; TEMP 98.9; O2SAT 95
[2017-08-01] MEDS: FOLIC ACID 1 MG TAB PO SCH (09:00)
[2017-08-01] MEDS: levETIRAcetam 500 MG TAB PO SCH ×3 (09:00→18:14)
[2017-08-01] MEDS: THIAMINE HCL 100 MG TAB PO SCH (09:00)
[2017-08-01] MEDS: GABAPENTIN 100 MG CAP PO SCH (09:00)
[2017-08-01] MEDS: clonazePAM 0.5 MG TAB PO SCH ×2 (09:00→21:02)
[2017-08-01] MEDS: GABAPENTIN 300 MG CAP PO SCH ×3 (09:01→18:14)
[2017-08-01] MEDS: SODIUM CHLORIDE 0.9% FLUSH 10 ML FLUSH IV FLUSH SCH ×2 (09:01→21:00)
[2017-08-01] MEDS: cloNIDine HCL 0.1 MG TAB PO PRN (09:01)
[2017-08-01] MEDS: DOCUSATE SODIUM 50 MG/SENNA 8.6 MG TAB PO SCH ×2 (09:01→21:02)
[2017-08-01] MEDS ORDERED: GNP100TA3 PO (10:57)
[2017-08-01] MEDS ORDERED: HYDR-3516 PO (10:57)
[2017-08-01] MEDS ORDERED: CLON0.5T PO (10:57)
[2017-08-01] MEDS ORDERED: FOLI1TAB6 PO (10:57)
[2017-08-01 12:00] VITALS: BP 137/91; PULSE 85; RESP 18; TEMP 98.6; O2SAT 95
[2017-08-01 12:11] LABS: CSF CRYPTOCOCCUS AG CONF ND (NOT DETECTD)
[2017-08-01 14:23] LABS: ALBUMIN SERUM 2960 mg/dL (3200 - 4800); IGG CSF 3.4 mg/dL (<=8.1); IGG INDEX CSF 0.64 (<=0.85); IGG SERUM 662 mg/dL (767 - 1590); IGG/ALBUMIN CSF 0.14 (<=0.21); IGG/ALBUMIN SERUM 0.22 (<=0.40); OLIGOCLONAL BANDING CSF 2 bands; OLIGOCLONAL BANDING INTERPRET 0 bands (<4); OLIGOCLONAL BANDING SERUM 2 bands; SYNTHESIS RATE CSF 4.22 mg/24 h (<=12)
[2017-08-01 16:00] VITALS: BP 143/97; PULSE 90; RESP 20; TEMP 98.3; O2SAT 96
[2017-08-01 20:00] VITALS: BP 128/69; PULSE 92; RESP 18; TEMP 97.8; O2SAT 96
[2017-08-01] MEDS: NAPROXEN 375 MG TAB PO SCH (21:02)
[2017-08-01] MEDS: MONTELUKAST SODIUM 10 MG TAB PO SCH (21:02)
[2017-08-01] MEDS ORDERED: GABAPENTIN 300 MG CAP PO ONE (22:15)
--- NOTE | 2017-08-01 22:44 | HHI.PR ---
Subjective Remarks Follow up for lower ext weakness. Patient complains of bilateral foot pain (bee type). No fever, chills. Objective Vitals Vital Signs Date Time Temp Pulse Resp B/P (MAP) Pulse Ox O2 Delivery O2 Flow Rate FiO2 08/01/17 20:00 97.8 92 18 128/69 (88) 96 08/01/17 16:00 98.3 90 20 143/97 (112) 96 08/01/17 12:00 98.6 85 18 137/91 (106) 95 08/01/17 08:00 98.9 98 20 170/90 (116) 95 08/01/17 03:42 98.5 97 18 166/85 (112) 96 07/31/17 23:25 98.4 90 16 136/74 (94) 96 07/31/17 23:25 98.4 90 18 136/74 (94) 96 I/O 07/31/17 07/31/17 07/31/17 08/01/17 08/01/17 08/01/17 07:00 15:00 23:00 07:00 15:00 23:00 Intake Total 360 ml 360 ml 600 ml 360 ml Output Total 800 ml 775 ml 700 ml 1000 ml 600 ml Balance -440 ml -415 ml -700 ml -400 ml -240 ml Intake Oral 360 ml 360 ml 360 ml IV Total 600 ml Output Urine Total 800 ml 775 ml 700 ml 1000 ml 600 ml # Voids 1 1 # Bowel Movements 1 2 Result Diagram: 07/28/17 0615 Imaging Last Impressions Lumbar Puncture Fluoroscopy 07/29/17 0000 Signed Impressions: Service Date/Time: Saturday, July 29, 2017 10:40 - CONCLUSION: Uncomplicated fluoroscopically guided lumbar puncture. Waylon Kingston MD Thoracic Spine MRI 07/27/17 0000 Signed Impressions: Service Date/Time: Thursday, July 27, 2017 20:29 - CONCLUSION: 1. Mild scoliosis and mild degenerative changes at T1/T2, T8-T9 and T9/T10. 2. Otherwise negative MRI of the thoracic spine. No foraminal or spinal stenosis demonstrated. The thoracic cord is normal. Waylon Esquivel MD Renal Ultrasound 07/27/17 0000 Signed Impressions: Service Date/Time: Thursday, July 27, 2017 10:46 - CONCLUSION: 1. Minimal left perinephric fluid. 2. Otherwise unremarkable kidneys bilaterally. 3. Limited evaluation of the nondistended urinary bladder with Spencer catheter. Puneet Soliman MD Lumbar Spine MRI 07/27/17 0000 Signed Impressions: Service Date/Time: Thursday, July 27, 2017 20:29 - CONCLUSION: 1. Mid and lower lumbar degenerative changes as above. 2. Mild bilateral foraminal stenosis at L4/L5 and mild left foraminal stenosis at L5/S1. 3. No significant spinal stenosis at any level. 4. Bilateral osteoarthritis and synovitis of the L4/L5 and L5/S1 facets. Waylon Esquivel MD Cervical Spine MRI 07/27/17 0000 Signed Impressions: Service Date/Time: Thursday, July 27, 2017 20:29 - CONCLUSION: 1. Mild multilevel degenerative changes as above. 2. Low-grade foraminal encroachment at C5/C6 and C6/C7. Also slight effacement of the anterior aspect of the thecal sac at C6/C7. There is no high-grade foraminal or spinal stenosis at any level. 3. Cervical cord is within normal limits. 4. No fracture or subluxation. Waylon Esquivel MD Brain MRI 07/27/17 0000 Signed Impressions: Service Date/Time: Thursday, July 27, 2017 20:29 - CONCLUSION: No acute intracranial abnormality. No mass or significant acute or chronic white matter changes are demonstrated. Waylon Esquivel MD Chest X-Ray 07/26/17 1518 Signed Impressions: Service Date/Time: Wednesday, July 26, 2017 15:44 - CONCLUSION: 1. Discoid atelectasis within the right midlung field. 2. Elevation of the right hemidiaphragm. Puneet Soliman MD Head CT 07/26/17 0000 Signed Impressions: Service Date/Time: Wednesday, July 26, 2017 17:33 - CONCLUSION: Negative noncontrast CT Francisco Orozco MD Objective Remarks GENERAL: AOX3, NAD. SKIN: Warm and dry. HEAD: Normocephalic. EYES: No scleral icterus. No injection or drainage. NECK: Supple, trachea midline. No JVD or lymphadenopathy. CARDIOVASCULAR: Regular rate and rhythm without murmurs, gallops, or rubs. RESPIRATORY: Breath sounds equal bilaterally. No accessory muscle use. GASTROINTESTINAL: Abdomen soft, non-tender, nondistended. MUSCULOSKELETAL: No cyanosis, or edema. 4/5 strength bilateral legs. BACK: Nontender without obvious deformity. No CVA tenderness. Procedures LP by Interventional Radiology. A/P Problem List: (1) Physical deconditioning ICD Code: R53.81 - Other malaise Status: Acute (2) Acute kidney injury ICD Code: N17.9 - Acute kidney failure, unspecified Status: Acute (3) Chest pain ICD Code: R07.9 - Chest pain, unspecified (4) Hyponatremia ICD Code: E87.1 - Hypo-osmolality and hyponatremia (5) Seizure ICD Code: R56.9 - Unspecified convulsions Status: Chronic (6) HTN (hypertension) ICD Code: I10 - HTN (hypertension) Status: Chronic (7) Hypothyroid ICD Code: E03.9 - Hypothyroid Status: Chronic Assessment and Plan 52-year-old female with a history of seizures, asthma, anxiety, hypothyroidism, and hypertension presented to the ED with complaints of weakness in her bilateral lower extremities for the last month. Patient states she has intermittent lower extremity weakness for the last 1 month that has gotten worse over the last 1 week. Physical deconditioning, patient was bilateral lower extremity weakness and numbness 1 month, suspected due to dehydration and hyponatremia, will rule out any neurological abnormalities Head CT reviewed and is unremarkable -PT eval and treat -Consult neurology - Dr. Sutherland evaluated, cleared for discharge from neurological standpoint. -MRI studies were largely unremarkable for any acute findings. -LP did not reveal any etiology. Probable neuropathy - Gabapentin 200mg TID to see if this helps. Acute kidney injury, creatinine 2.0 -2.5 L NS bolus given in the ED - Creatinine improved to 1.24 --> 0.55. -Avoid nephrotoxins Hyponatremia, acute sodium 129 -Continue IVF 1/2NS, Na improved to 138. Seizure, chronic, unsure if any recent seizures -Restart home medications Keppra -EEG - unremarkable study. Chest pain, atypical r/o ACS, troponins x 2 negative. No further work up. Hypertension - patient is currently normotensive. She takes metoprolol and valsartan at home. We'll continue to hold blood pressure medications for now. Hypothyroid, chronic -Resume home medication Synthroid -TSH 0.636 DVT prophylaxis: SCDs, Heparin Discharge plan: Waiting for SNF arrangements. Michel Bee DO Aug 01, 2017 22:44
[2017-08-02] VITALS (8 sets, daily range): BP systolic 125–171; BP diastolic 67–103; PULSE 83–100; RESP 16–18; TEMP 97.5–98.4; O2SAT 93–100
[2017-08-02] MEDS: LEVOTHYROXINE SODIUM 112 MCG TAB PO SCH (06:10)
[2017-08-02] MEDS: POTASSIUM CHLORIDE 10 MEQ CONTROLLED RELEASE TAB PO SCH ×3 (06:10→21:33)
[2017-08-02] MEDS: SODIUM CHLOR 0.45% 1000 ML INJ 1,000 ML IV SCH (06:10)
[2017-08-02] MEDS: SODIUM CHLORIDE 0.9% FLUSH 10 ML FLUSH IV FLUSH SCH ×2 (09:03→21:00)
[2017-08-02] MEDS: FOLIC ACID 1 MG TAB PO SCH (09:08)
[2017-08-02] MEDS: THIAMINE HCL 100 MG TAB PO SCH (09:08)
[2017-08-02] MEDS: clonazePAM 0.5 MG TAB PO SCH ×2 (09:08→21:33)
[2017-08-02] MEDS: levETIRAcetam 500 MG TAB PO SCH ×3 (09:08→18:28)
[2017-08-02] MEDS: GABAPENTIN 300 MG CAP PO SCH ×3 (09:09→18:28)
[2017-08-02] MEDS: DOCUSATE SODIUM 50 MG/SENNA 8.6 MG TAB PO SCH ×3 (09:09→21:33)
[2017-08-02] MEDS: NAPROXEN 375 MG TAB PO SCH ×2 (09:09→21:33)
[2017-08-02] MEDS: cloNIDine HCL 0.1 MG TAB PO PRN (09:14)
--- NOTE | 2017-08-02 11:13 | HHI.PR ---
Subjective Remarks Follow up for lower ext weakness. Patient complains of "all over body aches and pain." Pt noted she had a fall this morning from bed while trying self transfer. No injury reported by pt. Pt stated she "came here last night" and was helped by nurse at bedside from car to the floor. No new complaints reported by pt. Per RN (Rut) pt had fall this morning, as noted above. RN stated pt's significant other has reported change in mental status is and is reportedly "concerned". Objective Vitals Vital Signs Date Time Temp Pulse Resp B/P (MAP) Pulse Ox O2 Delivery O2 Flow Rate FiO2 08/02/17 08:00 97.8 86 16 160/103 (122) 95 08/02/17 06:50 98.2 92 18 171/100 (123) 97 08/02/17 06:35 93 21 08/02/17 04:00 98.4 87 18 125/96 (106) 100 08/02/17 00:00 97.6 87 18 127/67 (87) 96 08/01/17 20:00 97.8 92 18 128/69 (88) 96 08/01/17 16:00 98.3 90 20 143/97 (112) 96 08/01/17 12:00 98.6 85 18 137/91 (106) 95 I/O 08/01/17 08/01/17 08/01/17 08/02/17 08/02/17 08/02/17 07:00 15:00 23:00 07:00 15:00 23:00 Intake Total 600 ml 360 ml Output Total 1000 ml 600 ml Balance -400 ml -240 ml Intake Oral 360 ml IV Total 600 ml Output Urine Total 1000 ml 600 ml # Voids 1 1 # Bowel Movements 2 Imaging Last Impressions Lumbar Puncture Fluoroscopy 07/29/17 0000 Signed Impressions: Service Date/Time: Saturday, July 29, 2017 10:40 - CONCLUSION: Uncomplicated fluoroscopically guided lumbar puncture. Waylon Kingston MD Thoracic Spine MRI 07/27/17 0000 Signed Impressions: Service Date/Time: Thursday, July 27, 2017 20:29 - CONCLUSION: 1. Mild scoliosis and mild degenerative changes at T1/T2, T8-T9 and T9/T10. 2. Otherwise negative MRI of the thoracic spine. No foraminal or spinal stenosis demonstrated. The thoracic cord is normal. Waylon Esquivel MD Renal Ultrasound 07/27/17 Signed Impressions: Service Date/Time: Thursday, July 27, 2017 10:46 - CONCLUSION: 1. Minimal left perinephric fluid. 2. Otherwise unremarkable kidneys bilaterally. 3. Limited evaluation of the nondistended urinary bladder with Spencer catheter. Puneet Soliman MD Lumbar Spine MRI 07/27/17 Signed Impressions: Service Date/Time: Thursday, July 27, 2017 20:29 - CONCLUSION: 1. Mid and lower lumbar degenerative changes as above. 2. Mild bilateral foraminal stenosis at L4/L5 and mild left foraminal stenosis at L5/S1. 3. No significant spinal stenosis at any level. 4. Bilateral osteoarthritis and synovitis of the L4/L5 and L5/S1 facets. Waylon Esquivel MD Cervical Spine MRI 07/27/17 Signed Impressions: Service Date/Time: Thursday, July 27, 2017 20:29 - CONCLUSION: 1. Mild multilevel degenerative changes as above. 2. Low-grade foraminal encroachment at C5/C6 and C6/C7. Also slight effacement of the anterior aspect of the thecal sac at C6/C7. There is no high-grade foraminal or spinal stenosis at any level. 3. Cervical cord is within normal limits. 4. No fracture or subluxation. Waylon Esquivel MD Brain MRI 07/27/17 Signed Impressions: Service Date/Time: Thursday, July 27, 2017 20:29 - CONCLUSION: No acute intracranial abnormality. No mass or significant acute or chronic white matter changes are demonstrated. Waylon Esquivel MD Chest X-Ray 07/26/17 1518 Signed Impressions: Service Date/Time: Wednesday, July 26, 2017 15:44 - CONCLUSION: 1. Discoid atelectasis within the right midlung field. 2. Elevation of the right hemidiaphragm. Puneet Soliman MD Head CT 07/26/17 Signed Impressions: Service Date/Time: Wednesday, July 26, 2017 17:33 - CONCLUSION: Negative noncontrast CT Francisco Orozco MD Objective Remarks GENERAL: Patient encountered laying bed, NAD. SKIN: Warm and dry. HEAD: Normocephalic. EYES: No scleral icterus. No injection or drainage. NECK: Supple, trachea midline. No lymphadenopathy. CARDIOVASCULAR: Regular rate and rhythm without murmurs, gallops, or rubs. RESPIRATORY: Breath sounds equal bilaterally. No wheezes rhonchi or crackles. No accessory muscle use. GASTROINTESTINAL: Abdomen soft, non-tender, nondistended. MUSCULOSKELETAL: No cyanosis, or edema. PSYCHIATRIC: Appropriate mood and affect. Patient oriented to month but not year (1997 and then 2007), not to location of hospital. Patient stated she came in late last night, she has been hospitalized since July 26. Patient was pleasant and cooperative. Procedures LP by Interventional Radiology. A/P Problem List: (1) Physical deconditioning ICD Code: R53.81 - Other malaise Status: Acute (2) Acute kidney injury ICD Code: N17.9 - Acute kidney failure, unspecified Status: Acute (3) Chest pain ICD Code: R07.9 - Chest pain, unspecified (4) Hyponatremia ICD Code: E87.1 - Hypo-osmolality and hyponatremia (5) Seizure ICD Code: R56.9 - Unspecified convulsions Status: Chronic (6) HTN (hypertension) ICD Code: I10 - HTN (hypertension) Status: Chronic (7) Hypothyroid ICD Code: E03.9 - Hypothyroid Status: Chronic (8) Confusion and disorientation ICD Code: F99 - Mental disorder, not otherwise specified Assessment and Plan 52-year-old female with a history of seizures, asthma, anxiety, hypothyroidism, and hypertension presented to the ED with complaints of weakness in her bilateral lower extremities for the last month. Patient states she has intermittent lower extremity weakness for the last 1 month that has gotten worse over the last 1 week. Neuropathy: Gabapentin 300 mg by mouth 3 times a day. Confusion and Disorientation: Psychiatry consulted, awaiting their input. BMP ordered. Last BMP (07/29) WNL. Physical deconditioning, patient was bilateral lower extremity weakness and numbness 1 month, suspected due to dehydration and hyponatremia, will rule out any neurological abnormalities Head CT reviewed and is unremarkable -PT eval and treat -Consult neurology - Dr. Sutherland evaluated, cleared for discharge from neurological standpoint. -MRI studies were largely unremarkable for any acute findings. -LP did not reveal any etiology. Probable neuropathy - Gabapentin 200mg TID to see if this helps. Acute kidney injury, creatinine 2.0 -2.5 L NS bolus given in the ED - Creatinine improved to 1.24 --> 0.55. -Avoid nephrotoxins Hyponatremia, acute sodium 129 -Continue IVF 1/2NS, Na improved to 138. Seizure, chronic, unsure if any recent seizures -Restart home medications Keppra -EEG - unremarkable study. Chest pain, atypical r/o ACS, troponins x 2 negative. No further work up. Hypertension - patient is currently normotensive. She takes metoprolol and valsartan at home. We'll continue to hold blood pressure medications for now. Hypothyroid, chronic -Resume home medication Synthroid -TSH 0.636 DVT prophylaxis: SCDs, Heparin Case discussed with patient, RN (at bedside), and Dr. Bee. Discharge Planning Waiting for SNF arrangements. Problem Qualifiers (1) HTN (hypertension): Qualified Codes: I10 - Essential (primary) hypertension (2) Hypothyroid: Qualified Codes: E03.9 - Hypothyroidism, unspecified Mihai Gregory Jr. Aug 02, 2017 11:13
[2017-08-02 14:02] LABS: BICARBONATE 24.3 MEQ/L (21.0-32.0); POTASSIUM 4.3 MEQ/L (3.5-5.1)
--- NOTE | 2017-08-02 14:18 | PD.PSY.CON ---
Provisional Diagnosis Admission Date Jul 27, 2017 at 13:39 [place] I. Delirium due to underlying medical conditions, history of anxiety, alcohol use disorder [place] II. Deferred [place] III. Seizures, asthma, hypertension History of Present Illness Service Psychiatry Consult Requested By Reason for Consult Confusion and disorganization Primary Care Physician Yuri Ellis MD HPI The patient is a 52-year-old woman, domicile with her mother in [facility], single, unemployed, with reported a psychiatric history of anxiety, alcohol use disorder, no previous psychiatric hospitalizations, no previous suicidal attempts, she is on Xanax 1 mg twice a day, prescribed by PCP, with a medical history of seizures, asthma, hypothyroidism, and hypertension presented to the ED with complaints of weakness in her bilateral lower extremities for the last month. Patient states she has intermittent lower extremity weakness for the last 1 month that has gotten worse over the last 1 week. Admitted with Neuropathy: Gabapentin 300 mg by mouth 3 times a day. Confusion and Disorientation: Psychiatry consulted, awaiting their input. BMP ordered. Last BMP (07/29) WNL.Acute kidney injury, creatinine 2.0. Hyponatremia, acute sodium 129. Assaulted to psychiatry due to episodes of confusion and confabulation. On psychiatric evaluation today patient says that she feels better, she reports good mood, she said that her mood is 8.5/10. Patient says that she has been anxious, but well controlled with Klonopin twice a day. Patient is oriented 3 , with episodic confusion and disorganization, but easily redirectable. Attention deficit, no fluctuation of consciousness at this moment. Patient denies suicidal and homicidal ideation, she denies visual and auditory hallucinations. Patient says that she has been taking Xanax 2 mg twice a day for many years prescribed by PCP, and she drinks alcohol 3-4 times per week, 4 drinks of vodka per day. Review of Systems Constitutional: DENIES: Diaphoretic episodes, Fatigue, Fever, Weight gain, Weight loss, Chills, Dizziness, Change in appetite, Night Sweats Endocrine: DENIES: Abnorml menstrual pattern, Heat/cold intolerance, Polydipsia , Polyuria, Polyphagia Eyes: DENIES: Blurred vision, Diplopia, Eye inflammation, Eye pain, Vision loss , Photosensitivity, Double Vision Ears, nose, mouth, throat: DENIES: Tinnitus, Hearing loss, Vertigo, Nasal discharge, Oral lesions, Throat pain, Hoarseness, Ear Pain, Running Nose, Epistaxis, Sinus Pain, Toothache, Odynophagia Respiratory: DENIES: Apneas, Cough, Snoring, Wheezing, Hemoptysis, Sputum production, Shortness of breath Cardiovascular: DENIES: Chest pain, Palpitations, Syncope, Dyspnea on Exertion , PND, Lower Extremity Edema, Orthopnea, Claudication Genitourinary: DENIES: Abnormal vaginal bleeding, Dysmenorrhea, Dyspareunia, Sexual dysfunction, Urinary frequency, Urinary incontinence, Urgency, Hematuria , Dysuria, Nocturia, Vaginal discharge Musculoskeletal: DENIES: Joint pain, Muscle aches, Stiffness, Joint Swelling, Back pain, Neck pain Integumentary: DENIES: Abnormal pigmentation, Pruritus, Rash, Nail changes, Breast masses, Breast skin changes, Nipple discharge Immunologic/allergic: DENIES: Eczema, Urticaria Neurologic: DENIES: Abnormal gait, Headache, Localized weakness, Paresthesias, Seizures, Speech Problems, Tremor, Poor Balance Psychiatric: COMPLAINS OF: Anxiety, DENIES: Confusion, Mood changes, Depression , Hallucinations, Agitation, Suicidal Ideation, Homicidal Ideation, Delusions Past Family Social History Coded Allergies: enalaprilat (Verified Allergy, Severe, Swelling, 07/26/17) morphine (Verified Allergy, Severe, Anaphylaxis, 07/26/17) latex (Verified Adverse Reaction, Severe, Rash, 07/26/17) lidocaine (Verified Adverse Reaction, Intermediate, Swelling, 07/26/17) CAUSED FACIAL SWELLING. Active Scripts Thiamine HCl (Gnp Vitamin B-1) 100 Mg Tab, 100 MG PO DAILY for Vitamin, #30 TAB Prov:Michel Bee DO 08/01/17 Folic Acid (Folic Acid) 1 Mg Tablet, 1 MG PO DAILY for Vitamin, #30 TAB Prov:Michel Bee DO 08/01/17 Hydrocodone-Acetaminophen (Hydrocodone-Acetaminophen) 5-325 mg Tab, 1 TAB PO Q6H Y for PAIN>5, #20 TAB Prov:Michel Bee DO 08/01/17 Clonazepam (Clonazepam) 0.5 Mg Tab, 0.5 MG PO BID for Anxiety and/or Insomnia, # 20 TAB 0 Refills Prov:Michel Bee DO 08/01/17 Reported Medications Levothyroxine (Levothyroxine) 112 Mcg Tab, 112 MCG PO DAILY for Thyroid, #30 TAB 0 Refills 07/26/17 Montelukast (Singulair) 10 Mg Tab, 10 MG PO HS, #30 TAB 0 Refills 07/26/17 Levetiracetam (Keppra) 500 Mg Tab, 500 MG PO TID for Control Seizures, #60 TAB 0 Refills 07/26/17 Gabapentin (Gabapentin) 300 Mg Cap, 300 MG PO TID, #90 CAP 0 Refills 07/26/17 Discontinued Reported Medications Valsartan (Valsartan) 160 Mg Tab, 160 MG PO DAILY, #30 TAB 0 Refills 07/26/17 Metoprolol Tartrate (Metoprolol Tartrate) 100 Mg Tab, 100 MG PO BID, #60 TAB 0 Refills 07/26/17 Current Medications Medications (Trade) Dose Ordered Sig/Barrera Route Start Time Stop Time Status Last Admin (Synthroid) 112 mcg DAILY@0600 PO 07/27/17 06:00 08/02/17 06:10 Sodium Chloride 1,000 ml @ 45 mls/hr [id number] IV 07/26/17 18:09 08/02/17 06:10 (NS Flush) 2 ml UNSCH PRN IV FLUSH 07/26/17 18:15 (NS Flush) 2 ml BID IV FLUSH 07/26/17 21:00 07/31/17 21:37 (Zofran Inj) 4 mg Q6H PRN IVP 07/26/17 18:15 (Narcan Inj) 0.4 mg UNSCH PRN IV 07/26/17 18:15 (Jacquelyn-Colace) 1 tab BID PO 07/26/17 21:00 08/01/17 21:02 (Milk Of Magnesia Liq) 30 ml Q12H PRN PO 07/26/17 18:15 (Senokot) 17.2 mg Q12H PRN PO 07/26/17 18:15 (Dulcolax Supp) 10 mg DAILY PRN RECTAL 07/26/17 18:15 (Lactulose Liq) 30 ml DAILY PRN PO 07/26/17 18:15 (Neurontin) 300 mg TID PO 07/27/17 09:00 08/02/17 13:38 (Keppra) 500 mg TID PO 07/27/17 09:00 08/02/17 13:37 (Singulair) 10 mg HS PO 07/26/17 21:00 08/01/17 21:02 (KCl) 10 meq Q8HR PO 07/27/17 14:30 08/02/17 13:37 (KlonoPIN) 0.5 mg BID PO 07/27/17 21:00 08/02/17 09:08 (Albuterol Neb) 1.25 mg Q4HR NEB PRN NEB 07/28/17 09:45 07/31/17 16:08 (Vitamin B1) 100 mg DAILY PO 07/31/17 09:00 08/02/17 09:08 (Folate) 1 mg DAILY PO 07/29/17 09:00 08/02/17 09:08 (Lopressor) 100 mg BID PO 07/29/17 21:00 Future Hold (Diovan) 160 mg DAILY PO 07/30/17 09:00 Future Hold (Gilbert 5-325 Mg) 1 tab Q6H PRN PO 07/29/17 20:45 08/01/17 16:05 (Catapres) 0.1 mg Q6H PRN PO 07/29/17 20:45 08/02/17 09:14 (Naprosyn) 375 mg Q12HR PO 08/01/17 21:00 08/22/17 20:59 08/02/17 09:09 Family History She denies family psychiatric history Social History Patient was born and raised in [place], she lives with her mother Cheryle, single , no kids, employed as a teacher, highest level of education is some college Patient's Strengths (min. 2) Employed Physical Exam No tremors, no EPS, no withdrawal symptoms, no psychomotor agitation or retardation, no gait disturbance Vital Signs Vital Signs Date Time Temp Pulse Resp B/P (MAP) Pulse Ox O2 Delivery O2 Flow Rate FiO2 08/02/17 12:00 97.5 100 18 134/81 (98) 95 08/02/17 06:35 21 Lab Results Test 08/02/17 13:15 Blood Urea Nitrogen 6 MG/DL Creatinine 0.64 MG/DL Random Glucose 92 MG/DL Calcium Level 9.3 MG/DL Sodium Level 128 MEQ/L Potassium Level 4.3 MEQ/L Chloride Level 96 MEQ/L Carbon Dioxide Level 24.3 MEQ/L Anion Gap 8 MEQ/L Estimat Glomerular Filtration Rate 97 ML/MIN Date/Time Source Procedure Growth Status 07/26/17 18:15 Blood Line Aerobic Blood Culture - Final NO GROWTH IN 5 DAYS Complete 07/26/17 18:15 Blood Line Anaerobic Blood Culture - Final NO GROWTH IN 5 DAYS Complete 07/29/17 11:17 Cerebral Spinal Fluid Lumbar Puncture Fungal Smear - Final NO FUNGAL ELEMENTS SEEN. Resulted 07/29/17 11:17 Cerebral Spinal Fluid Lumbar Puncture Fungal Culture Pending Resulted Mental Status Examination Appearance woman, age appearing, [facility], calm and cooperative Speech: Unremarkable Orientation: x3 Memory: Unremarkable Thought Process: Logical, Circumstantial Thought Content: Unremarkable Language Good grammar, good diction, appropriate usually with Fund of Knowledge Adequate for level of education Hallucination Type: None Suicidal Ideation: No Previous Suicide Attempts: No Homicidal Ideation: No Previous Homicide Attempts: No Insight: Good Affect: Good Mood: Appropriate Motor Activity: Normal gait Assessment & Plan Problem List: (1) Anxiety disorder, unspecified ICD Codes: F41.9 - Anxiety disorder, unspecified Assessment & Plan: On psychiatric evaluation today the patient does not present any significant, concerning or acute objective or subjective symptom pathology of depression, cynthia or psychosis. Patient does report anxiety and difficulty sleeping at night. But she denies suicidal and homicidal ideation, she denies visual and auditory hallucinations. No paranoia, no internal preoccupation, no delusions of reference, no agitation or aggressive behavior observed or reported. At this moment patient is fully oriented 3, no attention deficit, no fluctuation of consciousness present. Patient does confabulates and is circumstantial, at times confused, but easily redirectable. Patient admitted drinking 4-6 drinks of vodka per day 3-4 times per week, also using Xanax every day without clear indication. Alcohol/benzodiazepine abuse is suspected. Previous described episodes of confusion, disorganization and disorientation could be related with delirium that could be secondary to underlying medical conditions, but also alcohol/benzodiazepine withdrawal. Low doses of clonazepam to control anxiety are okay, but I would not recommend more than 0.5 mg twice a day. Gabapentin 300 mg 3 times a day is usually very helpful for pain and anxiety at the same time. I would to avoid as much as possible the use of narcotics and benzodiazepines in this patient. Extensive support, motivation psycho education provided. She does not meet criteria for psychiatric admission at this moment. Consult appreciated. Assessment & Plan Estimated LOS: days Qasim Tilley MD Aug 02, 2017 14:18
[2017-08-02] MEDS: ACETAMINOPHEN/HYDROcodone 325 MG/5 MG TAB PO PRN (18:28)
[2017-08-02] MEDS: MONTELUKAST SODIUM 10 MG TAB PO SCH (21:33)
[2017-08-03 00:05] VITALS: BP 149/85; PULSE 91; RESP 16; TEMP 97.8; O2SAT 96
[2017-08-03 04:00] VITALS: BP 169/99; PULSE 92; RESP 18; TEMP 98.1; O2SAT 95
[2017-08-03] MEDS: SODIUM CHLOR 0.45% 1000 ML INJ 1,000 ML IV SCH (04:01)
[2017-08-03] MEDS: POTASSIUM CHLORIDE 10 MEQ CONTROLLED RELEASE TAB PO SCH (06:13)
[2017-08-03] MEDS: LEVOTHYROXINE SODIUM 112 MCG TAB PO SCH (06:13)
[2017-08-03] MEDS: ACETAMINOPHEN/HYDROcodone 325 MG/5 MG TAB PO PRN (06:16)
[2017-08-03 08:12] VITALS: BP 140/68; PULSE 97; RESP 20; TEMP 97.5; O2SAT 95
[2017-08-03] MEDS ORDERED: amLODIPine BESYLATE 5 MG TAB PO SCH (09:00)
[2017-08-03] MEDS: FOLIC ACID 1 MG TAB PO SCH (09:51)
[2017-08-03] MEDS: clonazePAM 0.5 MG TAB PO SCH (09:51)
[2017-08-03] MEDS: NAPROXEN 375 MG TAB PO SCH (09:51)
[2017-08-03] MEDS: DOCUSATE SODIUM 50 MG/SENNA 8.6 MG TAB PO SCH (09:51)
[2017-08-03] MEDS: THIAMINE HCL 100 MG TAB PO SCH (09:51)
[2017-08-03] MEDS: GABAPENTIN 300 MG CAP PO SCH (09:52)
[2017-08-03] MEDS: levETIRAcetam 500 MG TAB PO SCH (09:52)
--- NOTE | 2017-08-03 10:39 | HHI.DS ---
Discharge Summary Admission Date Jul 27, 2017 at 13:39 Discharge Date: Aug 03, 2017 Admitting Diagnosis hypotension, hyponatremia, LEVI (1) Physical deconditioning ICD Code: R53.81 - Other malaise Status: Acute (2) Acute kidney injury ICD Code: N17.9 - Acute kidney failure, unspecified Status: Acute (3) Chest pain ICD Code: R07.9 - Chest pain, unspecified (4) Hyponatremia ICD Code: E87.1 - Hypo-osmolality and hyponatremia (5) Seizure ICD Code: R56.9 - Unspecified convulsions Status: Chronic (6) HTN (hypertension) ICD Code: I10 - HTN (hypertension) Status: Chronic (7) Hypothyroid ICD Code: E03.9 - Hypothyroid Status: Chronic (8) Confusion and disorientation ICD Code: F99 - Mental disorder, not otherwise specified Procedures LP by Interventional Radiology. Brief History - From Admission 52-year-old female with a history of seizures, asthma, anxiety, hypothyroidism, and hypertension presented to the ED with complaints of weakness in her bilateral lower extremities for the last month. Patient states she has intermittent lower extremity weakness for the last 1 month that has gotten worse over the last 1 week. She states she can be walking and all of a sudden her lower extremities get very weak and numb which causes her to fall, she does have her walk with her to the bathroom most of the time. She states she has met her PCP know but no evaluation has been completed she recently saw her PCP 2 weeks ago and was found to have low blood pressure and was taken off her nifedipine at this time. Per the she has also been having "mind problem" in which she forgets things and is sometimes confused. She is unsure if she is has had any seizures that she is unaware of. For the past few weeks she has also quit drinking as much as she use to, prior to this she was a heavy drinker but now she has one drink every few days. She states her last seizure was last time she was in the hospital in 2014, she does see Dr. Vyas outpatient but has not seen her in a while. Today she complains of intermittent sternal pressure-like chest pain but denies any radiating to her arm or jaw. She denies any associated nausea, diaphoresis or shortness of breath. She denies any double vision, blurry vision, fever, chills, cough or dizziness. CBC/BMP: 08/02/17 1315 Significant Findings Laboratory Tests Test 08/02/17 13:15 Blood Urea Nitrogen 6 MG/DL (7-18) Sodium Level 128 MEQ/L (136-145) Chloride Level 96 MEQ/L (98-107) PE at Discharge GENERAL: Patient encountered laying bed, NAD. SKIN: Warm and dry. HEAD: Normocephalic. EYES: No scleral icterus. No injection or drainage. NECK: Supple, trachea midline. No lymphadenopathy. CARDIOVASCULAR: Regular rate and rhythm without murmurs, gallops, or rubs. RESPIRATORY: Breath sounds equal bilaterally. No wheezes rhonchi or crackles. No accessory muscle use. GASTROINTESTINAL: Abdomen soft, non-tender, nondistended. MUSCULOSKELETAL: No cyanosis, or edema. PSYCHIATRIC: Appropriate mood and affect. Patient stated she was in [place], [place]. 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 Patient was pleasant and cooperative. Pt update on day of discharge Follow up for lower ext weakness. Patient complains of "all over body aches" and rated it as 4-5 out of 10. No new complaints reported by pt. Pt denied fever, cough, shortness of breath, abdominal pain, chest pain, nausea , vomiting, diarrhea. Per RN Magdaleno) pt without new issues over night or since start of shift. Hospital Course 52-year-old female admitted on 07/26/17 with a history of seizures, asthma, anxiety, hypothyroidism, and hypertension presented to the ED with complaints of weakness in her bilateral lower extremities for the last month. Patient states she has intermittent lower extremity weakness for the last 1 month that has gotten worse over the last 1 week. She states she can be walking and all of a sudden her lower extremities get very weak and numb which causes her to fall, she does have her walk with her to the bathroom most of the time. Admitting diagnoses included Hypotension, hyponatremia, and LEVI. While hospitalized she was treated for her chronic conditions of hypertension, hypothyroidism. and seizures. Confusion/disorientation was also diagnosed. She was seen by neurology and psychiatry. Psychiatry noted anxiety was present and advised Clonazepam 0.5 mg twice a day be used as well as Gabapentin 300 mg TID. Otherwise it was advised pt refrain from benzodiazepine use. Procedures included lumbar puncture, MRI of brain and spinal cord and CT imaging study of her brain. Her home blood pressure medications were held and she was started on Norvasc 5 mg daily on day of discharge. Neuropsychological evaluation was being considered but pt was discharged before consult/evaluation could be completed. Pt Condition on Discharge: Good Discharge Disposition: Discharge to SNF Discharge Time: <= 30 minutes Discharge Instructions DIET: Follow Instructions for: As Tolerated, No Restrictions Activities you can perform: Regular-No Restrictions Follow up Referrals: Neurology - 2 Weeks with Larry Sutherland PhD MD [facility]/ New Medications: Folic Acid (Folic Acid) 1 Mg Tablet 1 MG PO DAILY for Vitamin, #30 TAB Hydrocodone-Acetaminophen (Hydrocodone-Acetaminophen) 5-325 mg Tab 1 TAB PO Q6H PRN for PAIN>5, #20 TAB Thiamine HCl (Gnp Vitamin B-1) 100 Mg Tab 100 MG PO DAILY for Vitamin, #30 TAB Continued Medications: Clonazepam (Clonazepam) 0.5 Mg Tab 0.5 MG PO BID for Anxiety and/or Insomnia, #20 TAB 0 Refills (This prescription has been renewed) Gabapentin (Gabapentin) 300 Mg Cap 300 MG PO TID, #90 CAP 0 Refills Levetiracetam (Keppra) 500 Mg Tab 500 MG PO TID for Control Seizures, #60 TAB 0 Refills Levothyroxine (Levothyroxine) 112 Mcg Tab 112 MCG PO DAILY for Thyroid, #30 TAB 0 Refills Montelukast (Singulair) 10 Mg Tab 10 MG PO HS, #30 TAB 0 Refills Discontinued Medications: Metoprolol Tartrate (Metoprolol Tartrate) 100 Mg Tab 100 MG PO BID, #60 TAB 0 Refills Valsartan (Valsartan) 160 Mg Tab 160 MG PO DAILY, #30 TAB 0 Refills Mihai Gregory Jr. Aug 03, 2017 10:39
--- NOTE | 2017-08-03 10:45 | HHI.PR ---
Subjective Remarks Follow up for lower ext weakness. Patient complains of "all over body aches" and rated it as 4-5 out of 10. No new complaints reported by pt. Per RN (Norma) pt without new issues over night or since start of shift. Objective Vitals Vital Signs Date Time Temp Pulse Resp B/P (MAP) Pulse Ox O2 Delivery O2 Flow Rate FiO2 08/03/17 08:12 97.5 97 20 140/68 (92) 95 08/03/17 04:00 98.1 92 18 169/99 (122) 95 08/03/17 00:05 97.8 91 16 149/85 (106) 96 08/02/17 20:30 98.0 88 16 156/85 (108) 95 08/02/17 16:00 97.7 83 16 139/81 (100) 96 08/02/17 12:00 97.5 100 18 134/81 (98) 95 I/O 08/02/17 08/02/17 08/02/17 08/03/17 08/03/17 08/03/17 07:00 15:00 23:00 07:00 15:00 23:00 Intake Total 480 ml 240 ml Output Total 450 ml Balance 30 ml 240 ml Intake Oral 480 ml 240 ml Output Urine Total 450 ml # Voids 4 # Bowel Movements 1 0 Result Diagram: 08/02/17 1315 Imaging Last Impressions Lumbar Puncture Fluoroscopy 07/29/17 0000 Signed Impressions: Service Date/Time: Saturday, July 29, 2017 10:40 - CONCLUSION: Uncomplicated fluoroscopically guided lumbar puncture. Waylon Kingston MD Thoracic Spine MRI 07/27/17 0000 Signed Impressions: Service Date/Time: Thursday, July 27, 2017 20:29 - CONCLUSION: 1. Mild scoliosis and mild degenerative changes at T1/T2, T8-T9 and T9/T10. 2. Otherwise negative MRI of the thoracic spine. No foraminal or spinal stenosis demonstrated. The thoracic cord is normal. Waylon Esquivel MD Renal Ultrasound 07/27/17 0000 Signed Impressions: Service Date/Time: Thursday, July 27, 2017 10:46 - CONCLUSION: 1. Minimal left perinephric fluid. 2. Otherwise unremarkable kidneys bilaterally. 3. Limited evaluation of the nondistended urinary bladder with Spencer catheter. Puneet Soliman MD Lumbar Spine MRI 07/27/17 0000 Signed Impressions: Service Date/Time: Thursday, July 27, 2017 20:29 - CONCLUSION: 1. Mid and lower lumbar degenerative changes as above. 2. Mild bilateral foraminal stenosis at L4/L5 and mild left foraminal stenosis at L5/S1. 3. No significant spinal stenosis at any level. 4. Bilateral osteoarthritis and synovitis of the L4/L5 and L5/S1 facets. Waylon Esquivel MD Cervical Spine MRI 07/27/17 0000 Signed Impressions: Service Date/Time: Thursday, July 27, 2017 20:29 - CONCLUSION: 1. Mild multilevel degenerative changes as above. 2. Low-grade foraminal encroachment at C5/C6 and C6/C7. Also slight effacement of the anterior aspect of the thecal sac at C6/C7. There is no high-grade foraminal or spinal stenosis at any level. 3. Cervical cord is within normal limits. 4. No fracture or subluxation. Waylon Esquivel MD Brain MRI 07/27/17 0000 Signed Impressions: Service Date/Time: Thursday, July 27, 2017 20:29 - CONCLUSION: No acute intracranial abnormality. No mass or significant acute or chronic white matter changes are demonstrated. Waylon Esquivel MD Chest X-Ray 07/26/17 1518 Signed Impressions: Service Date/Time: Wednesday, July 26, 2017 15:44 - CONCLUSION: 1. Discoid atelectasis within the right midlung field. 2. Elevation of the right hemidiaphragm. Puneet Soliman MD Head CT 07/26/17 0000 Signed Impressions: Service Date/Time: Wednesday, July 26, 2017 17:33 - CONCLUSION: Negative noncontrast CT Francisco Orozco MD Objective Remarks GENERAL: Patient encountered laying bed, NAD. SKIN: Warm and dry. HEAD: Normocephalic. EYES: No scleral icterus. No injection or drainage. NECK: Supple, trachea midline. No lymphadenopathy. CARDIOVASCULAR: Regular rate and rhythm without murmurs, gallops, or rubs. RESPIRATORY: Breath sounds equal bilaterally. No wheezes rhonchi or crackles. No accessory muscle use. GASTROINTESTINAL: Abdomen soft, non-tender, nondistended. MUSCULOSKELETAL: No cyanosis, or edema. PSYCHIATRIC: Appropriate mood and affect. Patient stated she was in [place], [place]. 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 Patient was pleasant and cooperative. Procedures LP by Interventional Radiology. Medications and IVs Current Medications Medications (Trade) Dose Ordered Sig/Barrera Route Start Time Stop Time Status Last Admin (Synthroid) 112 mcg DAILY@0600 PO 07/27/17 06:00 08/03/17 06:13 Sodium Chloride 1,000 ml @ 45 mls/hr [id number] IV 07/26/17 18:09 08/02/17 06:10 (NS Flush) 2 ml UNSCH PRN IV FLUSH 07/26/17 18:15 (NS Flush) 2 ml BID IV FLUSH 07/26/17 21:00 08/02/17 21:00 (Zofran Inj) 4 mg Q6H PRN IVP 07/26/17 18:15 (Narcan Inj) 0.4 mg UNSCH PRN IV 07/26/17 18:15 (Jacquelyn-Colace) 1 tab BID PO 07/26/17 21:00 08/03/17 09:51 (Milk Of Magnesia Liq) 30 ml Q12H PRN PO 07/26/17 18:15 (Senokot) 17.2 mg Q12H PRN PO 07/26/17 18:15 (Dulcolax Supp) 10 mg DAILY PRN RECTAL 07/26/17 18:15 (Lactulose Liq) 30 ml DAILY PRN PO 07/26/17 18:15 (Neurontin) 300 mg TID PO 07/27/17 09:00 08/03/17 09:52 (Keppra) 500 mg TID PO 07/27/17 09:00 08/03/17 09:52 (Singulair) 10 mg HS PO 07/26/17 21:00 08/02/17 21:33 (KCl) 10 meq Q8HR PO 07/27/17 14:30 08/03/17 06:13 (KlonoPIN) 0.5 mg BID PO 07/27/17 21:00 08/03/17 09:51 (Albuterol Neb) 1.25 mg Q4HR NEB PRN NEB 07/28/17 09:45 07/31/17 16:08 (Vitamin B1) 100 mg DAILY PO 07/31/17 09:00 08/03/17 09:51 (Folate) 1 mg DAILY PO 07/29/17 09:00 08/03/17 09:51 (Lopressor) 100 mg BID PO 07/29/17 21:00 Future Hold (Diovan) 160 mg DAILY PO 07/30/17 09:00 Future Hold ([place] 5-325 Mg) 1 tab Q6H PRN PO 07/29/17 20:45 08/03/17 06:16 (Catapres) 0.1 mg Q6H PRN PO 07/29/17 20:45 08/02/17 09:14 (Naprosyn) 375 mg Q12HR PO 08/01/17 21:00 08/22/17 20:59 08/03/17 09:51 (Norvasc) 5 mg DAILY PO 08/03/17 09:00 08/03/17 09:58 Urinary Catheter: No A/P Problem List: (1) Physical deconditioning ICD Code: R53.81 - Other malaise Status: Acute (2) Acute kidney injury ICD Code: N17.9 - Acute kidney failure, unspecified Status: Acute (3) Chest pain ICD Code: R07.9 - Chest pain, unspecified (4) Hyponatremia ICD Code: E87.1 - Hypo-osmolality and hyponatremia (5) Seizure ICD Code: R56.9 - Unspecified convulsions Status: Chronic (6) HTN (hypertension) ICD Code: I10 - HTN (hypertension) Status: Chronic (7) Hypothyroid ICD Code: E03.9 - Hypothyroid Status: Chronic (8) Confusion and disorientation ICD Code: F99 - Mental disorder, not otherwise specified Assessment and Plan 52-year-old female with a history of seizures, asthma, anxiety, hypothyroidism, and hypertension presented to the ED with complaints of weakness in her bilateral lower extremities for the last month. Patient states she has intermittent lower extremity weakness for the last 1 month that has gotten worse over the last 1 week. Confusion and Disorientation: Psychiatry saw on 08/02 advised gabapentin 300mg three times a day as well as Clonazepam 0.5 mg twice a day. Otherwise, pt is advised to refrain from further benzodiazepine use as well as resumption of alcohol. Consider neuropsychological evaluation. Physical deconditioning, patient was bilateral lower extremity weakness and numbness 1 month, suspected due to dehydration and hyponatremia, will rule out any neurological abnormalities Head CT reviewed and is unremarkable -PT eval and treat -Consult neurology - Dr. Sutherland evaluated, cleared for discharge from neurological standpoint. -MRI studies were largely unremarkable for any acute findings. -LP did not reveal any etiology. Probable neuropathy - Gabapentin 200mg TID to see if this helps. Acute kidney injury, creatinine 2.0 -2.5 L NS bolus given in the ED - Creatinine improved to 1.24 --> 0.55. -Avoid nephrotoxins Hyponatremia, acute sodium 129 -Continue IVF 1/2NS, Na improved to 138. Seizure, chronic, unsure if any recent seizures -Restart home medications Keppra -EEG - unremarkable study. Chest pain, atypical r/o ACS, troponins x 2 negative. No further work up. Hypertension - patient is currently normotensive. She takes metoprolol and valsartan at home. We'll continue to hold blood pressure medications for now. Hypothyroid, chronic -Resume home medication Synthroid -TSH 0.636 DVT prophylaxis: SCDs, Heparin Case discussed with patient, RN, and Dr. Bee. Discharge Planning Pt being discharged this date to SNF Problem Qualifiers (1) HTN (hypertension): Qualified Codes: I10 - Essential (primary) hypertension (2) Hypothyroid: Qualified Codes: E03.9 - Hypothyroidism, unspecified Mihai Gregory Jr. Aug 03, 2017 10:45
[2017-08-03 11:52] LABS: VDRL CSF NON-REACTIVE (())
== END 2017-08-03 11:03 | DRG 641 ==
LOC: NEPC 14:46 → NEDA 18:14 → NEPGCP 20:12 → OBSVTOIN 07-27 13:39 → N05B 07-30 07:57
PROVIDERS: ADMIT Hospitalist; ATTEND Hospitalist
PROC: 02HV33Z Insertion of Infusion Device into Superior Vena Cava, Percutaneous Approach (ICD-10-PCS; principal; 2017-07-27)
PROC: 009U3ZX Drainage of Spinal Canal, Percutaneous Approach, Diagnostic (ICD-10-PCS; 2017-07-29)
DX: E86.0 Dehydration (principal); N17.9 Acute kidney failure, unspecified; I95.9 Hypotension, unspecified; G62.9 Polyneuropathy, unspecified; R07.89 Other chest pain; E87.1 Hypo-osmolality and hyponatremia; F10.20 Alcohol dependence, uncomplicated; E03.9 Hypothyroidism, unspecified; J45.909 Unspecified asthma, uncomplicated; G43.909 Migraine, unspecified, not intractable, without status migrainosus; K21.9 Gastro-esophageal reflux disease without esophagitis; F41.9 Anxiety disorder, unspecified; I10 Essential (primary) hypertension; R26.2 Difficulty in walking, not elsewhere classified; G40.909 Epilepsy, unspecified, not intractable, without status epilepticus; W06.XXXA Fall from bed, initial encounter; Y93.89 Activity, other specified; Y92.230 Patient room in hospital as the place of occurrence of the external cause
CPT/HCPCS: 62270; 70450; 70553; 71010; 72141; 72146; 72148; 76775; 76937; 77003; 80048; 80053; 80307; 81001; 82040; 82042; 82550; 82607; 82784; 82945; 83605; 83735; 83873; 83916; 84157; 84295; 84443; 84484; 84702; 85025; 85610; 85652; 85730; 86403; 86592; 86618; 87015; 87040; 87070; 87102; 87116; 87205; 87206; 89051; 93005; 94640; 94664; 95819; 96360; 96361; 96372; A9579; G0378; G8987-GP; G8988-GP; J1644; J2400; J3411; J7030; J7613

== ENCOUNTER 2017-08-06 14:37 | Observation (INO) | payer BC ==
[~2017-08-06] VITALS: Ht 162.6 cm; Wt 85.0 kg
[~2017-08-06 14:37] MED LIST changes: -ALBU8I INH; +CLON0.5T PO; -CYCL-36 PO; -DIOV80TA4 PO; -ECOT81TA2 PO; -ESTR1TAB12 PO; +FOLI1TAB6 PO; +GABA300C5 PO; +GNP100TA3 PO; +HYDR-3516 PO; +LEVO112T2 PO; -LEVO75TA3 PO; -LORA-392 PO; -METO50TA PO; -MONT10 PO; +MONT10TA2 PO; -NIFE1TAB85 PO; -PROM25TA5 PO; -RANI150T PO
[2017-08-06] MEDS ORDERED: SODIUM CHLOR 0.9% 1000 ML INJ 1,000 ML IV SCH (14:52)
[2017-08-06 14:59] VITALS: BP 165/73; PULSE 68; RESP 20; TEMP 97.6; O2SAT 98
[2017-08-06] MEDS ORDERED: SODIUM CHLORIDE 0.9% FLUSH 5 ML FLUSH IV FLUSH PRN (15:00)
--- NOTE | 2017-08-06 15:35 | RADRPT ---
EXAM DATE/TIME: 08/06/2017 15:02 [facility] COMPARISON: CHEST SINGLE AP, July 26, 2017, 15:44. INDICATIONS : Syncope MEDICAL HISTORY : Hypertension. Hypothyroidism. Seizures, asthma, anxiety, LE weakness, altered mental status, SURGICAL HISTORY : Hysterectomy. Lung surgery ENCOUNTER: Initial ACUITY: 2 days PAIN SCORE: 5/10 LOCATION: Left chest FINDINGS: A single view of the chest are obtained and demonstrate no evidence of mass, elevated infiltrate or e ffusion. There is stable elevation of the right hemidiaphragm with mild scarring at the right lung b ase. The patient is status post cholecystectomy and there are overlying electrocardiogram leads. The cardiomediastinal contours are unremarkable. Osseous structures are intact. CONCLUSION: 1. No acute cardiac pulmonary change. There is mild scarring at the right lung base. 2. Table elevation of the right hemidiaphragm. Francisco Orozco MD on August 06, 2017 at 15:33 Board Certified Radiologist. This report was verified electronically.
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
[2017-08-06 16:15] LABS: INTERNATIONAL NORMALIZED RATIO 1.1 RATIO; PROTHROMBIN TIME - PATIENT 11.7 SEC (9.8-11.6)
[2017-08-06 16:30] LABS: AUTOMATED NEUTROPHIL # 4.4 TH/MM3 (1.8-7.7); BASOPHIL % 0.6 % (0.0-2.0); EOSINOPHIL # 0.2 TH/MM3 (0-0.4); EOSINOPHIL % 3.3 % (0.0-4.0); HEMO FLAGS DIFF FINAL; LYMPHOCYTE # 1.6 TH/MM3 (1.0-4.8); MEAN CELL VOLUME 100.5 FL (80.0-100.0); MEAN CORPUSCULAR HEMOGLOBIN 33.1 PG (27.0-34.0); MEAN CORPUSCULAR HGB CONC 32.9 % (32.0-36.0); MONO % 10.3 % (0.0-8.0); NEUT % 62.8 % (16.0-70.0); PLATELET COUNT 300 TH/MM3 (150-450); RED BLOOD COUNT 3.88 MIL/MM3 (4.00-5.30); RED CELL DISTRIBUTION WIDTH 14.7 % (11.6-17.2); WHITE BLOOD COUNT 7.1 TH/MM3 (4.0-11.0)
[2017-08-06 16:33] LABS: ALT (GPT) 60 U/L (10-53)
[2017-08-06 16:42] LABS: ANION GAP 10 MEQ/L (5-15)
[2017-08-06 16:45] LABS: ALKALINE PHOSPHATASE 45 U/L (45-117); AST (GOT) 90 U/L (15-37); BICARBONATE 23.3 MEQ/L (21.0-32.0); BLOOD UREA NITROGEN 13 MG/DL (7-18); CHLORIDE 96 MEQ/L (98-107); GLOMERULAR FILTRATION RATE 84 ML/MIN (>89); SODIUM (NA) 129 MEQ/L (136-145); TOTAL BILIRUBIN ADULT 1.3 MG/DL (0.2-1.0)
--- NOTE | 2017-08-06 16:46 | RADRPT ---
EXAM DATE/TIME: 08/06/2017 16:17 [facility] COMPARISON: CT BRAIN W/O CONTRAST, July 26, 2017, 17:33. INDICATIONS : Altered mental status. RADIATION DOSE: 27.64 CTDIvol (mGy) ; Patient motion MEDICAL HISTORY : Seizures. Hypertension. Cardiovascular disease SURGICAL HISTORY : Hysterectomy. ENCOUNTER: Initial ACUITY: 1 day PAIN SCALE: 0/10 LOCATION: Bilateral head TECHNIQUE: Multiple contiguous axial images were obtained of the head. Using automated exposure control and adj ustment of the mA and/or kV according to patient size, radiation dose was kept as low as reasonably a chievable to obtain optimal diagnostic quality images. DICOM format image data is available electro nically for review and comparison. FINDINGS: CEREBRUM: The ventricles are normal for age. No evidence of midline shift, mass lesion, hemorrhage or acute in farction. No extra-axial fluid collections are seen. POSTERIOR FOSSA: The cerebellum and brainstem are intact. The 4th ventricle is midline. The cerebellopontine angle i s unremarkable. EXTRACRANIAL: The visualized portion of the orbits is intact. SKULL: The calvaria is intact. No evidence of skull fracture. CONCLUSION: Negative noncontrast CT Francisco Orozco MD on August 06, 2017 at 16:43 Board Certified Radiologist. This report was verified electronically.
[2017-08-06 16:49] LABS: ALCOHOL LESS THAN 3 MG/DL (0-5); CREATINE KINASE 75 U/L (26-192); POTASSIUM 4.8 MEQ/L (3.5-5.1)
[2017-08-06] MEDS ORDERED: GADODIAMIDE PF 287 MG/ML 5 ML VIAL (for RAD MRI) IVCONTRAST ONE (17:02)
[2017-08-06] MEDS ORDERED: VITA200C3 PO (17:05)
[2017-08-06] MEDS ORDERED: METO100T PO (17:05)
[2017-08-06] MEDS ORDERED: VALS1TAB65 PO (17:05)
[2017-08-06] MEDS ORDERED: CHOL5000 PO (17:05)
[2017-08-06] MEDS ORDERED: ASCO500T PO (17:05)
[2017-08-06 17:06] LABS: BACTERIA, URINE MANY /hpf; BLOOD, URINE SMALL (NEG); GLUCOSE,URINE NEG (NEG); KETONE, URINE 10 mg/dL (NEG); MUCUS URINE FEW /lpf (OCC); NITRITE,URINE POS (NEG); PH, URINE 5.5 (5.0-8.5); SQUAMOUS EPITHELIAL CELL URINE 5 /hpf (0-5); URINE COLOR YELLOW (YELLW/STRAW)
[2017-08-06 17:07] LABS: COMMENT (UR) CATH-CULTURE IND; CULTURE IF INDICATED CATH CULTURE IND
[2017-08-06] MEDS ORDERED: SENNOSIDES 8.6 MG TAB PO PRN (17:15)
[2017-08-06] MEDS ORDERED: BISACODYL 10 MG SUPP RECTAL PRN (17:15)
[2017-08-06] MEDS ORDERED: ACETAMINOPHEN 325 MG TAB PO PRN (17:15)
[2017-08-06] MEDS ORDERED: NALOXONE HCL 0.4 MG/ML AMP IV PUSH PRN (17:15)
[2017-08-06] MEDS ORDERED: SODIUM CHLORIDE 0.9% FLUSH 10 ML FLUSH IV FLUSH PRN (17:15)
[2017-08-06] MEDS ORDERED: ONDANSETRON HCL 4 MG/2 ML VIAL IVP PRN (17:15)
[2017-08-06] MEDS ORDERED: MAGNESIUM HYDROXIDE SUSP 30 ML CUP PO PRN (17:15)
[2017-08-06] MEDS ORDERED: cefTRIAXone INJ 1,000 MG in SODIUM CHLORIDE 0.9% INJ 100 ML IV ONE (17:30)
[2017-08-06] MEDS: ENOXAPARIN SODIUM 40 MG/0.4 ML SYRINGE SQ SCH (18:17)
[2017-08-06 18:26] VITALS: BP 136/77; PULSE 66; RESP 20; TEMP 97.5; O2SAT 94
[2017-08-06] MEDS: SODIUM CHLOR 0.9% 1000 ML INJ 1,000 ML IV SCH (19:30)
[2017-08-06] MEDS: SODIUM CHLORIDE 0.9% FLUSH 10 ML FLUSH IV FLUSH SCH (21:00)
[2017-08-06] MEDS: DOCUSATE SODIUM 50 MG/SENNA 8.6 MG TAB PO SCH (21:00)
[2017-08-06 23:20] VITALS: BP 127/81; PULSE 74; RESP 18; TEMP 97.9; O2SAT 97
[2017-08-07] MEDS: SODIUM CHLOR 0.9% 1000 ML INJ 1,000 ML IV SCH ×2 (04:41→05:49)
[2017-08-07 05:57] LABS: AUTOMATED NEUTROPHIL # 4.2 TH/MM3 (1.8-7.7); BASOPHIL % 0.3 % (0.0-2.0); EOSINOPHIL # 0.2 TH/MM3 (0-0.4); EOSINOPHIL % 3.5 % (0.0-4.0); HEMATOCRIT 36.4 % (35.0-46.0); HEMO FLAGS DIFF FINAL; LYMPH % 25.7 % (9.0-44.0); LYMPHOCYTE # 1.8 TH/MM3 (1.0-4.8); MEAN CELL VOLUME 99.5 FL (80.0-100.0); MEAN CORPUSCULAR HEMOGLOBIN 33.6 PG (27.0-34.0); MEAN CORPUSCULAR HGB CONC 33.7 % (32.0-36.0); MONO % 12.1 % (0.0-8.0); NEUT % 58.4 % (16.0-70.0); PLATELET COUNT 258 TH/MM3 (150-450); RED BLOOD COUNT 3.66 MIL/MM3 (4.00-5.30); RED CELL DISTRIBUTION WIDTH 14.4 % (11.6-17.2); WHITE BLOOD COUNT 7.2 TH/MM3 (4.0-11.0)
[2017-08-07 06:46] LABS: ALKALINE PHOSPHATASE 42 U/L (45-117); ALT (GPT) 53 U/L (10-53); ANION GAP 10 MEQ/L (5-15); AST (GOT) 70 U/L (15-37); BICARBONATE 22.7 MEQ/L (21.0-32.0); BLOOD UREA NITROGEN 9 MG/DL (7-18); CHLORIDE 101 MEQ/L (98-107); GLOMERULAR FILTRATION RATE 100 ML/MIN (>89); POTASSIUM 4.1 MEQ/L (3.5-5.1); SODIUM (NA) 134 MEQ/L (136-145); TOTAL BILIRUBIN ADULT 0.8 MG/DL (0.2-1.0)
[2017-08-07 07:51] VITALS: BP 119/77; PULSE 91; RESP 18; TEMP 98.1; O2SAT 100
[2017-08-07] MEDS ORDERED: PNEUMOCOCCAL POLYVALENT INJ 25 MCG/0.5 ML SYR IM ONE (10:00)
[2017-08-07] MEDS ORDERED: INFLUENZA VIRUS VACCINE (QUADRIVALENT) 0.5 ML SYR IM ONE (10:00)
[2017-08-07] MEDS: DOCUSATE SODIUM 50 MG/SENNA 8.6 MG TAB PO SCH ×2 (10:57→21:00)
[2017-08-07] MEDS: SODIUM CHLORIDE 0.9% FLUSH 10 ML FLUSH IV FLUSH SCH ×2 (10:57→21:00)
[2017-08-07 11:49] VITALS: BP 162/70; PULSE 87; RESP 17; TEMP 97.8; O2SAT 98
--- NOTE | 2017-08-07 14:04 | EKG ---
Date Performed: 08/06/2017 Time Performed: 15:18:00 PTAGE: 52 years EKG: Sinus rhythm BORDERLINE LEFT AXIS DEVIATION Nonspecific T-wave changes BORDERLINE ECG PREVIOUS TRACING : 07/26/2017 15.24 Since previous tracing, T-wave changes are slightly improve d, otherwise no significant change. DOCTOR: Seven Nielson Interpretating Date/Time 08/07/2017 14:03:18
--- NOTE | 2017-08-07 15:10 | HHI.HP ---
History of Present Illness Primary Care Physician Alex Tarango, DO Admission Diagnosis altered mental status, hyponatremia Diagnoses: Review of Systems ROS Limitations: Altered Mental Status Psychiatric: COMPLAINS OF: Confusion Past Family Social History Allergies: Coded Allergies: enalaprilat (Verified Allergy, Severe, Swelling, 07/26/17) morphine (Verified Allergy, Severe, Anaphylaxis, 07/26/17) latex (Verified Adverse Reaction, Severe, Rash, 07/26/17) lidocaine (Verified Adverse Reaction, Intermediate, Swelling, 07/26/17) CAUSED FACIAL SWELLING. Past Medical History seizures hptn hypothyroidism Past Surgical History appy but poor historian Reported Medications Reported Meds & Active Scripts Active Gnp Vitamin B-1 (Thiamine HCl) 100 Mg Tab 100 Mg PO DAILY Folic Acid 1 Mg Tablet 1 Mg PO DAILY Hydrocodone-Acetaminophen 5-325 mg Tab 1 Tab PO Q6H PRN Clonazepam 0.5 Mg Tab 0.5 Mg PO BID Reported Metoprolol Tartrate 100 Mg Tab 100 Mg PO BID Vitamin E 200 Unit Cap 400 Units PO DAILY Vitamin D3 (Cholecalciferol) 5,000 Unit Cap 5,000 Units PO MONTHLY Valsartan 160 Mg Tab 160 Mg PO DAILY Ascorbic Acid 500 Mg Tab 500 Mg PO DAILY Levothyroxine (Levothyroxine Sodium) 112 Mcg Tab 112 Mcg PO DAILY Singulair (Montelukast Sodium) 10 Mg Tab 10 Mg PO HS Keppra (Levetiracetam) 500 Mg Tab 500 Mg PO TID Gabapentin 300 Mg Cap 300 Mg PO TID Active Ordered Medications Inpatient Medications Acetaminophen (Tylenol) 650 mg Q4H PRN PO TEMP > 100.4; Start 08/06/17 at 17:15 Bisacodyl (Dulcolax Supp) 10 mg DAILY PRN RECTAL SEVERE CONSITIPATION; Start at 17:15 Ceftriaxone Sodium 1000 mg/ Sodium Chloride 100 ml @ 200 mls/hr ONCE ONCE IV Last administered on 08/06/17 19:30; Start 08/06/17 at 17:30; Stop 08/06/17 at 17:59; Status DC Enoxaparin Sodium (Lovenox Inj) 40 mg Q24H SQ Last administered on 08/06/17 18 :17; Start 08/06/17 at 18:00 Influenza Virus Vaccine (Flu (Quadrivalent) Vaccine Inj) 0.5 ml ONCE ONCE IM Last administered on 08/07/17 10:57; Start 08/07/17 at 10:00; Stop 08/07/17 at 10:01; Status DC IV Flush (NS Flush) 2 ml UNSCH PRN IV FLUSH FLUSH AFTER USING IV ACCESS; Start 08/06/17 at 15:00; Stop 08/06/17 at 17:28; Status DC Magnesium Hydroxide (Milk Of Magnesia Liq) 30 ml Q12H PRN PO MILD - MODERATE CONSTIPATION; Start 08/06/17 at 17:15 Naloxone HCl (Narcan Inj) 0.4 mg UNSCH PRN IV PUSH SEE LABEL COMMENTS; Start at 17:15 Ondansetron HCl (Zofran Inj) 4 mg Q6H PRN IVP NAUSEA OR VOMITING; Start at 17:15 Pneumococcal Polyvalent Vaccine (Pneumovax-23 Inj) 25 mcg ONCE ONCE IM ; Start 08/07/17 at 10:00; Stop 08/07/17 at 10:01; Status DC Senna/Docusate Sodium (Jacquelyn-Colace) 1 tab BID PO Last administered on 10:57; Start 08/06/17 at 21:00 Sennosides (Senokot) 17.2 mg Q12H PRN PO MODERATE - SEVERE CONSTIPATION; Start 08/06/17 at 17:15 Sodium Chloride (NS Flush) 2 ml BID IV FLUSH ; Start 08/06/17 at 21:00 Family History unknown Social History non smoker raree drinker Physical Exam Vital Signs Vital Signs Date Time Temp Pulse Resp B/P (MAP) Pulse Ox O2 Delivery O2 Flow Rate FiO2 08/07/17 11:49 97.8 87 17 162/70 (100) 98 08/07/17 07:51 98.1 91 18 119/77 (91) 100 08/06/17 23:20 97.9 74 18 127/81 (96) 97 08/06/17 18:26 97.5 66 20 136/77 (96) 94 08/06/17 18:15 08/06/17 14:59 97.6 68 20 165/73 (103) 98 Room Air Physical Exam GENERAL: This is a well-nourished, well-developed patient, in no apparent distress. SKIN: No rashes, ecchymoses or lesions. Cool and dry. HEAD: Atraumatic. Normocephalic. No temporal or scalp tenderness. EYES: Pupils equal round and reactive. Extraocular motions intact. No scleral icterus. No injection or drainage. ENT: Nose without bleeding, purulent drainage or septal hematoma. Throat without erythema, tonsillar hypertrophy or exudate. Uvula midline. Airway patent. NECK: Trachea midline. No JVD or lymphadenopathy. Supple, nontender, no meningeal signs. CARDIOVASCULAR: Regular rate and rhythm without murmurs, gallops, or rubs. RESPIRATORY: Clear to auscultation. Breath sounds equal bilaterally. No wheezes , rales, or rhonchi. GASTROINTESTINAL: Abdomen soft, non-tender, nondistended. No hepato-splenomegaly , or palpable masses. No guarding. MUSCULOSKELETAL: Extremities without clubbing, cyanosis, or edema. No joint tenderness, effusion, or edema noted. No calf tenderness. Negative Homans sign bilaterally. NEUROLOGICAL: Awake and alert. Cranial nerves II through XII intact. Motor and sensory grossly within normal limits. Five out of 5 muscle strength in all muscle groups. Normal speech confused on many historical facts . Laboratory Laboratory Tests Test 08/06/17 15:30 08/06/17 16:50 08/06/17 20:34 08/07/17 05:25 White Blood Count 7.1 7.2 Red Blood Count 3.88 3.66 Hemoglobin 12.8 12.3 Hematocrit 39.0 36.4 Mean Corpuscular Volume 100.5 99.5 Mean Corpuscular Hemoglobin 33.1 33.6 Mean Corpuscular Hemoglobin Concent 32.9 33.7 Red Cell Distribution Width 14.7 14.4 Platelet Count 300 258 Mean Platelet Volume 9.7 9.8 Neutrophils (%) (Auto) 62.8 58.4 Lymphocytes (%) (Auto) 23.0 25.7 Monocytes (%) (Auto) 10.3 12.1 Eosinophils (%) (Auto) 3.3 3.5 Basophils (%) (Auto) 0.6 0.3 Neutrophils # (Auto) 4.4 4.2 Lymphocytes # (Auto) 1.6 1.8 Monocytes # (Auto) 0.7 0.9 Eosinophils # (Auto) 0.2 0.2 Basophils # (Auto) 0.0 0.0 CBC Comment DIFF FINAL DIFF FINAL Differential Comment Prothrombin Time 11.7 Prothromb Time International Ratio 1.1 Blood Urea Nitrogen 13 9 Creatinine 0.72 0.62 Random Glucose 86 73 Total Protein 6.6 5.8 Albumin 3.2 3.0 Calcium Level 9.8 8.9 Alkaline Phosphatase 45 42 Aspartate Amino Transf (AST/SGOT) 90 70 Alanine Aminotransferase (ALT/SGPT) 60 53 Total Bilirubin 1.3 0.8 Sodium Level 129 134 Potassium Level 4.8 4.1 Chloride Level 96 101 Carbon Dioxide Level 23.3 22.7 Anion Gap 10 10 Estimat Glomerular Filtration Rate 84 100 Total Creatine Kinase 75 Troponin I LESS THAN 0.02 Thyroid Stimulating Hormone 3rd Gen 3.300 Ethyl Alcohol Level LESS THAN 3 Urine Color YELLOW Urine Turbidity CLOUDY Urine pH 5.5 Urine Specific [place] 1.019 Urine Protein 30 Urine Glucose (UA) NEG Urine Ketones 10 Urine Occult Blood SMALL Urine Nitrite POS Urine Bilirubin NEG Urine Urobilinogen 2.0 Urine Leukocyte Esterase LARGE Urine RBC 24 Urine WBC Urine WBC Clumps MOD Urine Squamous Epithelial Cells 5 Urine Bacteria MANY Urine Mucus FEW Microscopic Urinalysis Comment CATH-CULTURE IND Urine Opiates Screen NEG Urine Barbiturates Screen NEG Urine Amphetamines Screen NEG Urine Benzodiazepines Screen NEG Urine Cocaine Screen NEG Urine Cannabinoids Screen NEG Ammonia LESS THAN 10 Hematology Comments Date/Time Source Procedure Growth Status 08/06/17 20:34 Blood Peripheral Aerobic Blood Culture - Preliminary NO GROWTH IN 1 DAY Resulted 08/06/17 20:34 Blood Peripheral Anaerobic Blood Culture - Preliminary NO GROWTH IN 1 DAY Resulted 08/06/17 16:50 Urine Catheterized Urine Urine Culture - Preliminary Gram Negative Arturo Resulted Result Diagram: 08/07/1725 08/07/1725 Imaging Last Impressions Head CT [id number]/06/[id number] Signed Impressions: Service Date/Time: Sunday, August 06, 2017 16:17 - CONCLUSION: Negative noncontrast CT Francisco Orozco MD Chest X-Ray [id number] Signed Impressions: Service Date/Time: Sunday, August 06, 2017 15:02 - CONCLUSION: 1. No acute cardiac pulmonary change. There is mild scarring at the right lung base. 2. Table elevation of the right hemidiaphragm. [facility] Willem VTE Risk Assessment: No/Low Risk (score <= 1) Caprini Risk Assessment Model Point Value = 1 Point Value = 2 Point Value = 3 Point Value = 5 Age 41-60 Minor surgery BMI > 25 kg/m2 Swollen legs Varicose veins or History of unexplained or recurrent spontaneous Oral contraceptives or hormone replacement Sepsis (< 1 month) Serious lung disease, including pneumonia (< 1 month) Abnormal pulmonary function Acute myocardial infarction Congestive heart failure (< 1 month) History of inflammatory bowel disease Medical patient at bed rest Age 61-74 Arthroscopic surgery Major open surgery (> 45 min) Laparoscopic surgery (> 45 min) Malignancy Confined to bed (> 72 hours) Immobilizing plaster cast Central venous access Age >= 75 History of VTE Family history of VTE Factor V Leiden Prothrombin [id number] Lupus anticoagulant Anticardiolipin antibodies Elevated serum homocysteine Heparin-induced thrombocytopenia Other congenital or acquired thrombophilia Stroke (< 1 month) Elective arthroplasty Hip, pelvis, or leg fracture Acute spinal cord injury (< 1 month) Prophylaxis Regimen Total Risk Factor Score Risk Level Prophylaxis Regimen 0-1 Low Early ambulation 2 Moderate Order ONE of the following: *Sequential Compression Device (SCD) *Heparin 5000 units SQ BID 3-4 Higher Order ONE of the following medications: *Heparin 5000 units SQ TID *Enoxaparin/Lovenox 40 mg SQ daily (WT < 150 kg, CrCl > 30 mL/min) *Enoxaparin/Lovenox 30 mg SQ daily (WT < 150 kg, CrCl > 10-29 mL/min) *Enoxaparin/Lovenox 30 mg SQ BID (WT < 150 kg, CrCl > 30 mL/min) AND/OR *Sequential Compression Device (SCD) 5 or more Highest Order ONE of the following medications: *Heparin 5000 units SQ TID (Preferred with Epidurals) *Enoxaparin/Lovenox 40 mg SQ daily (WT < 150 kg, CrCl > 30 mL/min) *Enoxaparin/Lovenox 30 mg SQ daily (WT < 150 kg, CrCl > 10-29 mL/min) *Enoxaparin/Lovenox 30 mg SQ BID (WT < 150 kg, CrCl > 30 mL/min) AND *Sequential Compression Device (SCD) Assessment and Plan Problem List: (1) Seizure ICD Codes: R56.9 - Unspecified convulsions Status: Chronic Plan: consult neuro (2) HTN (hypertension) ICD Codes: I10 - HTN (hypertension) Status: Chronic Plan: controlled (3) Hypothyroid ICD Codes: E03.9 - Hypothyroid Status: Chronic Plan: asses lab (4) Confusion and disorientation ICD Codes: F99 - Mental disorder, not otherwise specified Plan: consult neuro and psych (5) UTI (urinary tract infection) ICD Codes: N39.0 - Urinary tract infection, site not specified Status: Acute Plan: ceftin await culture Assessment and Plan AMS ck lab consultneuro and psych Discharge Planning home Problem Qualifiers (1) UTI (urinary tract infection): Qualified Codes: N39.0 - Urinary tract infection, site not specified Alex Tarango DO Aug 07, 2017 15:10
[2017-08-07 16:54] VITALS: BP 154/94; PULSE 95; RESP 18; TEMP 98.2; O2SAT 99
[2017-08-07] MEDS: ENOXAPARIN SODIUM 40 MG/0.4 ML SYRINGE SQ SCH (18:09)
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
[2017-08-07 20:04] VITALS: BP 112/64; PULSE 88; RESP 18; TEMP 98.1; O2SAT 98
--- NOTE | 2017-08-07 20:46 | MB ---
cc: LOGAN MARTINEZ M.D. DATE OF CONSULTATION 08/07/2017 REASON FOR CONSULTATION The patient is a 52-year-old woman seen in neurological consultation in regards to weakness and a subacute confusional state. HISTORY The patient is seen with the RN at bedside. She came to the hospital yesterday with increasing confusion. She is unable to provide much of a history. I am reviewing the recent medical history. There is date on her starting 07/26-07/29 from this hospital including an MRI brain on 07/27 showing no acute intracranial abnormality. She also had cervical, lumbar and thoracic spine MRI studies. The cervical cord is normal and there are degenerative changes. The lumbar spine showed no significant stenosis. There are degenerative changes and osteoarthritis. The thoracic spine MRI showed no cord pathology. Mild degenerative changes multilevel. On 07/29 she had an uncomplicated lumbar puncture to fluoroscopy. LABORATORY DATA Her labs from this recent admission include sed rate 16. B12 437. Sodium was 128 on 08/02 though was 137 on . I do not see a CPK but nothing else is pending. The spinal fluid data included glucose 47, protein 48. There were 2 wbc's, 102 rbc's. VDRL CSF nonreactive. Lyme evaluation negative. Cryptococcus negative. She was seen by Dr. Sutherland for neurology and an EEG was normal. The consultation was on 07/27 with the same reasons as she is seen today which is mental status change and weakness. She has a history of seizure disorder following with Dr. Vyas in the past. She takes Keppra reportedly 500 three times a day and Gabapentin 300 three times a day. On her discharge summary dated 08/03 there is a description of her lower extremity weakness going on for a month or so. It appears that she was discharged to a rehab facility and came back for same reasons. PHYSICAL EXAMINATION GENERAL: On exam the patient is awake, talkative, alert, pleasant, obviously confused. At some point answered 43 for her age. She seemed to think I was familiar with her and that she along someone else called for me. She is actually quite disoriented. She admits that she is having memory lapses, unable to remember simple names such as the name of her doctors. She knew the place and could remember her address. She gazes in all directions, able to count fingers. She as normal [id number] testing. She is moving all four extremities with some generalized weakness, able to raise the legs and oppose some moderate resistance with the lower extremities. Reflexes were present at the elbows and knees, diminished at the ankles and plantar responses were probably flexor bilaterally. During this admission she has had a number of studies. CBC is essentially normal. Sodium 134 today, 129 yesterday. Electrolytes otherwise normal. Calcium is 8.9 today, 9.8 yesterday. Interestingly liver enzymes mild or moderately elevated, AST 90 yesterday and 70 today. ALT 60 yesterday and 53 today. TSH normal. Urine toxicology negative. ASSESSMENT Subacute encephalopathy / confusional state, undetermined cause. Generalized weakness, inability to walk probably more apraxia than weakness itself. History of seizures, on Keppra and Gabapentin. I am going to obtain another EEG on her and want to be sure there is no ongoing subclinical seizures. Will have a repeat MRI brain as well with and without contrast. As discussed above, recent lumbar puncture essentially negative. No evidence of cord pathology to explain her weakness and inability to ambulate. She has been seen by psychiatry, it appears obvious that when I saw her she seems to be much more confused, inappropriate then when the psychiatrist saw the patient. I will follow the neurological care. Thank you for asking us to evaluate this interesting and challenging patient. MD JANELL Huerta/KK /7:27 PM /8:27 PM
[2017-08-07] MEDS: CEFUROXIME AXETIL 500 MG TAB PO SCH (21:00)
[2017-08-07 23:28] LABS: FREE T3 2.49 PG/ML (2.18-3.98); FREE T4 1.64 NG/DL (0.76-1.46)
[2017-08-08 01:07] VITALS: BP 128/76; PULSE 64; RESP 18; TEMP 98.4; O2SAT 97
[2017-08-08 03:33] VITALS: BP_SYST 180; BP_SYST 188; BP_DIAS 112; BP_DIAS 70; PULSE 105; RESP 18; TEMP 98.7; O2SAT 95
[2017-08-08 08:48] VITALS: BP 126/73; PULSE 100; RESP 18; TEMP 97.9; O2SAT 98
[2017-08-08] MEDS: SODIUM CHLORIDE 0.9% FLUSH 10 ML FLUSH IV FLUSH SCH ×2 (09:00→21:40)
[2017-08-08] MEDS: DOCUSATE SODIUM 50 MG/SENNA 8.6 MG TAB PO SCH ×2 (09:00→21:00)
[2017-08-08] MEDS: SODIUM CHLOR 0.9% 1000 ML INJ 1,000 ML IV SCH ×2 (09:14→10:50)
[2017-08-08] MEDS: CEFUROXIME AXETIL 500 MG TAB PO SCH ×2 (09:36→21:40)
[2017-08-08] MEDS ORDERED: RESP: ALBUTEROL 2.5 MG/IPRATROPIUM 0.5 MG NEB (PRN) NEB (10:30)
--- NOTE | 2017-08-08 10:36 | HHI.PR ---
Subjective Remarks Patient is not oriented however does follow all command. Reports that she has asthma and is a little tight feeling in lungs. Objective Vital Signs Date Time Temp Pulse Resp B/P (MAP) Pulse Ox O2 Delivery O2 Flow Rate FiO2 08/08/17 08:48 97.9 100 18 126/73 (90) 98 08/08/17 03:33 98.7 105 18 180/70 (106) 95 08/08/17 01:07 98.4 64 18 128/76 (93) 97 08/07/17 20:04 98.1 88 18 112/64 (80) 98 08/07/17 16:54 98.2 95 18 154/94 (114) 99 08/07/17 11:49 97.8 87 17 162/70 (100) 98 I/O 08/07/17 08/07/17 08/07/17 08/08/17 08/08/17 08/08/17 07:00 15:00 23:00 07:00 15:00 23:00 Intake Total 1863 ml Output Total 500 ml Balance 1863 ml -500 ml Intake Oral 800 ml IV Total 1063 ml Output Urine Total 500 ml # Voids 2 Result Diagram: 08/07/17 0525 08/07/17 0525 Imaging Last [address] 08/06/17 1452 Signed Impressions: Service Date/Time: Sunday, August 06, 2017 16:17 - CONCLUSION: Negative noncontrast CT Francisco Orozco MD Chest X-Ray 08/06/17 1452 Signed Impressions: Service Date/Time: Sunday, August 06, 2017 15:02 - CONCLUSION: 1. No acute cardiac pulmonary change. There is mild scarring at the right lung base. 2. Table elevation of the right hemidiaphragm. Francisco Orozco MD Objective Remarks GENERAL: Alert and cooperative SKIN: Warm and dry. HEAD: Normocephalic. EYES: No scleral icterus. No injection or drainage. NECK: Supple, trachea midline. No JVD or lymphadenopathy. CARDIOVASCULAR: Regular rate and rhythm without murmurs, gallops, or rubs. RESPIRATORY: Breath sounds equal bilaterally. No accessory muscle use. GASTROINTESTINAL: Abdomen soft, non-tender, nondistended. MUSCULOSKELETAL: No cyanosis, or edema. BACK: Nontender without obvious deformity. No CVA tenderness. Medications and IVs Current Medications Medications (Trade) Dose Ordered Sig/Barrera Route Start Time Stop Time Status Last Admin Sodium Chloride 1,000 ml @ 100 mls/hr Q10H IV 08/06/17 17:14 08/07/17 05:49 (NS Flush) 2 ml UNSCH PRN IV FLUSH 08/06/17 17:15 (NS Flush) 2 ml BID IV FLUSH 08/06/17 21:00 (Tylenol) 650 mg Q4H PRN PO 08/06/17 17:15 (Zofran Inj) 4 mg Q6H PRN IVP 08/06/17 17:15 (Lovenox Inj) 40 mg Q24H SQ 08/06/17 18:00 08/07/17 18:09 (Narcan Inj) 0.4 mg UNSCH PRN IV PUSH 08/06/17 17:15 (Jacquelyn-Colace) 1 tab BID PO 08/06/17 21:00 08/07/17 21:00 (Milk Of Magnesia Liq) 30 ml Q12H PRN PO 08/06/17 17:15 (Senokot) 17.2 mg Q12H PRN PO 08/06/17 17:15 (Dulcolax Supp) 10 mg DAILY PRN RECTAL 08/06/17 17:15 (Ceftin) 500 mg Q12HR PO 08/07/17 21:00 08/08/17 09:36 Assessment and Plan Problem List: (1) Confusion and disorientation ICD Codes: F99 - Mental disorder, not otherwise specified (2) Hypothyroid ICD Codes: E03.9 - Hypothyroid Status: Chronic (3) HTN (hypertension) ICD Codes: I10 - HTN (hypertension) Status: Chronic (4) Seizure ICD Codes: R56.9 - Unspecified convulsions Status: Chronic (5) Altered mental status ICD Codes: R41.82 - Altered mental status, unspecified Status: Acute (6) UTI (urinary tract infection) ICD Codes: N39.0 - Urinary tract infection, site not specified Status: Acute Assessment and Plan 08/08/17 AMS: Neurology consulted. EEG ordered and plan on MRI. Patient is alert and cooperative at visit but not oriented. UTI: Continue ceftin Anxiety: Psych consulted and managing. HTN: Metoprolol resumed. B/P 126/73 with heart rate of 100 Hypothyroidism; On replacement. Thyroid panel checked Seizures: Keppra resumed. Level ordered for AM Hyponatremia: Improving on IVF Asthma: Breathing treatments ordered as needed. lungs clear I and the ADULT HIGH SCHOOL INSTRUCTOR have both examined this patient and reviewed this note and I agree with these findings an plan of care. Alex Tarango DO Problem Qualifiers (1) Altered mental status: Qualified Codes: R40.4 - Transient alteration of awareness (2) UTI (urinary tract infection): Qualified Codes: N39.0 - Urinary tract infection, site not specified Jackeline Buchanan. ADULT HIGH SCHOOL INSTRUCTOR Aug 08, 2017 10:36
[2017-08-08] MEDS: levETIRAcetam 500 MG TAB PO SCH ×2 (13:06→17:41)
[2017-08-08] MEDS: GABAPENTIN 300 MG CAP PO SCH ×2 (13:06→17:41)
[2017-08-08 14:08] VITALS: BP 165/85; PULSE 99; RESP 16; TEMP 97.9; O2SAT 96
[2017-08-08 15:57] VITALS: BP 151/89; PULSE 88; RESP 20; TEMP 98.1; O2SAT 99
[2017-08-08] MEDS: ENOXAPARIN SODIUM 40 MG/0.4 ML SYRINGE SQ SCH (17:41)
[2017-08-08] MEDS: ALPRAZolam 1 MG TAB PO PRN (17:41)
--- NOTE | 2017-08-08 18:18 | HHI.PR ---
Review/Management Daily Summary 08/08 remains confused, talks to people as if they were familiar with her making up stories, some with a true general fund at bedside and provides very useful info if it were not for the cx of leg weakness and gait difficulty, i would say this is all psychiatric wonder if her gait is also psychiatric!!!! puzzle start PT, repeat mri brain w/s, pending eeg she has had some near breakdown in past Subjective Subjective Comments No new neuro events reported Active Medications Current Medications Medications (Trade) Dose Ordered Sig/Barrera Route Start Time Stop Time Status Last Admin Sodium Chloride 1,000 ml @ 100 mls/hr Q10H IV 08/06/17 17:14 08/08/17 10:50 (NS Flush) 2 ml UNSCH PRN IV FLUSH 08/06/17 17:15 (NS Flush) 2 ml BID IV FLUSH 08/06/17 21:00 (Tylenol) 650 mg Q4H PRN PO 08/06/17 17:15 (Zofran Inj) 4 mg Q6H PRN IVP 08/06/17 17:15 (Lovenox Inj) 40 mg Q24H SQ 08/06/17 18:00 08/08/17 17:41 (Narcan Inj) 0.4 mg UNSCH PRN IV PUSH 08/06/17 17:15 (Jacquelyn-Colace) 1 tab BID PO 08/06/17 21:00 08/07/17 21:00 (Milk Of Magnesia Liq) 30 ml Q12H PRN PO 08/06/17 17:15 (Senokot) 17.2 mg Q12H PRN PO 08/06/17 17:15 (Dulcolax Supp) 10 mg DAILY PRN RECTAL 08/06/17 17:15 (Ceftin) 500 mg Q12HR PO 08/07/17 21:00 08/13/17 09:00 08/08/17 09:36 (Neurontin) 300 mg TID PO 08/08/17 13:00 08/08/17 17:41 (Keppra) 500 mg TID PO 08/08/17 13:00 08/08/17 17:41 (Synthroid) 112 mcg DAILY@0600 PO 08/09/17 06:00 (Lopressor) 100 mg BID PO 08/08/17 21:00 (Singulair) 10 mg HS PO 08/08/17 21:00 (Duoneb Neb) 1 ampule Q6HR NEB PRN NEB 08/08/17 10:30 (Pepcid) 20 mg BID PO 08/08/17 21:00 (Xanax) 1 mg Q8H PRN PO 08/08/17 17:45 08/08/17 17:41 Allergies Allergies Coded Allergies enalaprilat (Verified Allergy, Severe, Swelling, 07/26/17) morphine (Verified Allergy, Severe, Anaphylaxis, 07/26/17) latex (Verified Adverse Reaction, Severe, Rash, 07/26/17) lidocaine (Verified Adverse Reaction, Intermediate, Swelling, 07/26/17) Review of Systems Constitutional: Weakness, Fatigue Eye: Negative ENMT: Negative Respiratory: Negative Cardiovascular: Negative Musculoskeletal: Joint pain Neurologic: Negative, Alert & Oriented x4, Abnormal balance, Confusion, Numbness, Tingling, Headache Psychiatric: Negative, Anxiety, Depression All other ROS: ROS reviewed as documented in chart Exam I&O / VS 08/08/17 08/08/17 08/09/17 15:00 23:00 07:00 # Voids 1 3 Vital Signs Date Time Temp Pulse Resp B/P (MAP) Pulse Ox O2 Delivery O2 Flow Rate FiO2 08/08/17 15:57 98.1 88 20 151/89 (109) 99 08/08/17 14:08 97.9 99 16 165/85 (111) 96 08/08/17 08:48 97.9 100 18 126/73 (90) 98 08/08/17 03:33 98.7 105 18 180/70 (106) 95 08/08/17 01:07 98.4 64 18 128/76 (93) 97 08/07/17 20:04 98.1 88 18 112/64 (80) 98 General: Alert and Oriented, No acute distress Eye: EOMI Musculoskeletal: ROM Psychiatric: Cooperative Objective Micro and Labs Laboratory Tests Test 08/07/17 22:41 08/08/17 05:04 Total Creatine Kinase 23 Free Thyroxine 1.64 Free Triiodothyronine (T3) pg/dL 2.49 Thyroid Stimulating Hormone 3rd Gen 3.830 Ammonia 13 Date/Time Source Procedure Growth Status 08/06/17 20:34 Blood Peripheral Aerobic Blood Culture - Preliminary NO GROWTH IN 2 DAYS Resulted 08/06/17 20:34 Blood Peripheral Anaerobic Blood Culture - Preliminary NO GROWTH IN 2 DAYS Resulted 08/06/17 16:50 Urine Catheterized Urine Urine Culture - Final Escherichia Coli Complete Andres Bee MD Aug 08, 2017 18:18
--- NOTE | 2017-08-08 19:17 | RADRPT ---
EXAM DATE/TIME: 08/08/2017 18:03 [facility] COMPARISON: MRI BRAIN W & W/O CONTRAST, April 26, 2015, 9:43. MRI BRAIN W & W/O CONTRAST, July 27, 2017, 2 0:29. INDICATIONS : Confusion. CONTRAST: 17 cc Omniscan (gadodiamide) IV MEDICAL HISTORY : Hypertension. Seizures. Asthma. SURGICAL HISTORY : Cholecystectomy. Hysterectomy. Appendectomy. ENCOUNTER: Initial ACUITY: 3 day PAIN SCORE: 2/10 LOCATION: Bilateral cranial TECHNIQUE: Multiplanar, multisequence MRI of the brain was performed both prior to and following the administrat ion of paramagnetic contrast. FINDINGS: CEREBRUM: Ventricle normal size. There's no parenchymal hemorrhage, acute infarction or mass lesion. Very min imal periventricular white matter changes are noted. There are no extra-axial fluid collections appr eciated.' POSTERIOR FOSSA: The cerebellum and brainstem are intact. The 4th ventricle is midline. The cerebellopontine angle is unremarkable. The cerebellar tonsils are normal in position. DIFFUSION IMAGING: No focal areas of restricted diffusion are seen. No evidence of acute infarction. EXTRACRANIAL: The visualized portions of the orbits and paranasal sinuses are unremarkable. POST-CONTRAST: No abnormal areas of parenchymal or dural enhancement. No evidence of blood-brain barrier breakdown. CONCLUSION: Very minimal nonspecific paraventricular white matter changes stable from the most recent comparison study. There is no abnormal contrast enhancement. There is no parenchymal hemorrhage. Anibal Jenkins MD FACR on August 08, 2017 at 19:13 Board Certified Radiologist. This report was verified electronically.
[2017-08-08 19:33] VITALS: BP 155/94; PULSE 92; RESP 16; TEMP 97.6; O2SAT 99
[2017-08-08] MEDS: METOPROLOL TARTRATE 100 MG TAB PO SCH (21:40)
[2017-08-08] MEDS: FAMOTIDINE 20 MG TAB PO SCH (21:40)
[2017-08-08] MEDS: MONTELUKAST SODIUM 10 MG TAB PO SCH (21:40)
--- NOTE | 2017-08-08 22:32 | MG ---
cc: DEMETRI HERNANDEZ Lab No: Date: 08/08/2017 Age: Sex: F Race: ELECTROENCEPHALOGRAM NUMBER [id number] DESCRIPTION Diffuse beta and alpha rhythms are seen. The recording overall is synchronous and symmetrical. Photic stimulation was performed without significant posterior driving. No hemisphere asymmetry is noted. No epileptiform or seizure activity is seen. IMPRESSION A normal awake EEG. No evidence for a focal or diffuse abnormality. MD TISH Fuentes/KK /9:03 PM /10:27 PM
[2017-08-09 03:57] VITALS: BP 133/87; PULSE 84; RESP 18; TEMP 97.7; O2SAT 95
[2017-08-09 04:36] LABS: HEMATOCRIT 33.7 % (35.0-46.0); MEAN CELL VOLUME 98.9 FL (80.0-100.0); MEAN CORPUSCULAR HEMOGLOBIN 33.3 PG (27.0-34.0); MEAN CORPUSCULAR HGB CONC 33.6 % (32.0-36.0); PLATELET COUNT 280 TH/MM3 (150-450); RED CELL DISTRIBUTION WIDTH 14.9 % (11.6-17.2); REVIEW FLAG FINAL; WHITE BLOOD COUNT 7.3 TH/MM3 (4.0-11.0)
[2017-08-09] MEDS: LEVOTHYROXINE SODIUM 112 MCG TAB PO SCH (05:09)
[2017-08-09] MEDS: SODIUM CHLOR 0.9% 1000 ML INJ 1,000 ML IV SCH ×2 (05:10→05:14)
[2017-08-09] MEDS: ALPRAZolam 1 MG TAB PO PRN (05:11)
[2017-08-09 07:47] VITALS: BP 151/79; PULSE 77; RESP 17; TEMP 97.5; O2SAT 100
[2017-08-09] MEDS: DOCUSATE SODIUM 50 MG/SENNA 8.6 MG TAB PO SCH ×2 (09:00→20:43)
[2017-08-09] MEDS: SODIUM CHLORIDE 0.9% FLUSH 10 ML FLUSH IV FLUSH SCH ×2 (09:00→20:44)
[2017-08-09] MEDS: CEFUROXIME AXETIL 500 MG TAB PO SCH ×2 (09:50→20:43)
[2017-08-09] MEDS: METOPROLOL TARTRATE 100 MG TAB PO SCH ×2 (09:50→20:43)
[2017-08-09] MEDS: FAMOTIDINE 20 MG TAB PO SCH ×2 (09:50→20:43)
[2017-08-09] MEDS: levETIRAcetam 500 MG TAB PO SCH ×3 (09:50→17:09)
[2017-08-09] MEDS: GABAPENTIN 300 MG CAP PO SCH ×3 (09:50→17:09)
--- NOTE | 2017-08-09 10:53 | HHI.PR ---
Subjective Remarks Patient seen in ER. Patient continues to be disoriented. Per nursing had loose stools last night. Objective Vital Signs Date Time Temp Pulse Resp B/P (MAP) Pulse Ox O2 Delivery O2 Flow Rate FiO2 08/09/17 07:47 97.5 77 17 151/79 (103) 100 08/09/17 03:57 97.7 84 18 133/87 (102) 95 08/08/17 19:33 97.6 92 16 155/94 (114) 99 08/08/17 15:57 98.1 88 20 151/89 (109) 99 08/08/17 14:08 97.9 99 16 165/85 (111) 96 I/O 08/08/17 08/08/17 08/08/17 08/09/17 08/09/17 08/09/17 07:00 15:00 23:00 07:00 15:00 23:00 Intake Total 200 ml Balance 200 ml IV Total 200 ml # Voids 1 3 Result Diagram: 08/09/17 0338 08/09/17 0338 Imaging Last 72 hours Impressions Brain MRI 08/08/17 0000 Signed Impressions: Service Date/Time: Tuesday, August 08, 2017 18:03 - CONCLUSION: Very minimal nonspecific paraventricular white matter changes stable from the most recent comparison study. There is no abnormal contrast enhancement. There is no parenchymal hemorrhage. Anibal Jenkins MD FACR Head CT 08/06/17 1452 Signed Impressions: Service Date/Time: Sunday, August 06, 2017 16:17 - CONCLUSION: Negative noncontrast CT Francisco Orozco MD Chest X-Ray 08/06/17 145 Signed Impressions: Service Date/Time: Sunday, August 06, 2017 15:02 - CONCLUSION: 1. No acute cardiac pulmonary change. There is mild scarring at the right lung base. 2. Table elevation of the right hemidiaphragm. Francisco Orozco MD Objective Remarks GENERAL: Alert and cooperative SKIN: Warm and dry. HEAD: Normocephalic. EYES: No scleral icterus. No injection or drainage. NECK: Supple, trachea midline. No JVD or lymphadenopathy. CARDIOVASCULAR: Regular rate and rhythm without murmurs, gallops, or rubs. RESPIRATORY: Breath sounds equal bilaterally. No accessory muscle use. GASTROINTESTINAL: Abdomen soft, non-tender, nondistended. MUSCULOSKELETAL: No cyanosis, or edema. BACK: Nontender without obvious deformity. No CVA tenderness. Medications and IVs Current Medications Medications (Trade) Dose Ordered Sig/Barrera Route Start Time Stop Time Status Last Admin Sodium Chloride 1,000 ml @ 100 mls/hr Q10H IV 08/06/17 17:14 08/09/17 05:10 (NS Flush) 2 ml UNSCH PRN IV FLUSH 08/06/17 17:15 (NS Flush) 2 ml BID IV FLUSH 08/06/17 21:00 08/08/17 21:40 (Tylenol) 650 mg Q4H PRN PO 08/06/17 17:15 (Zofran Inj) 4 mg Q6H PRN IVP 08/06/17 17:15 (Lovenox Inj) 40 mg Q24H SQ 08/06/17 18:00 08/08/17 17:41 (Narcan Inj) 0.4 mg UNSCH PRN IV PUSH 08/06/17 17:15 (Jacquelyn-Colace) 1 tab BID PO 08/06/17 21:00 08/07/17 21:00 (Milk Of Magnesia Liq) 30 ml Q12H PRN PO 08/06/17 17:15 (Senokot) 17.2 mg Q12H PRN PO 08/06/17 17:15 (Dulcolax Supp) 10 mg DAILY PRN RECTAL 08/06/17 17:15 (Ceftin) 500 mg Q12HR PO 08/07/17 21:00 08/13/17 09:00 08/09/17 09:50 (Neurontin) 300 mg TID PO 08/08/17 13:00 08/09/17 09:50 (Keppra) 500 mg TID PO 08/08/17 13:00 08/09/17 09:50 (Synthroid) 112 mcg DAILY@0600 PO 08/09/17 06:00 08/09/17 05:09 (Lopressor) 100 mg BID PO 08/08/17 21:00 08/09/17 09:50 (Singulair) 10 mg HS PO 08/08/17 21:00 08/08/17 21:40 (Duoneb Neb) 1 ampule Q6HR NEB PRN NEB 08/08/17 10:30 (Pepcid) 20 mg BID PO 08/08/17 21:00 08/09/17 09:50 (Xanax) 1 mg Q8H PRN PO 08/08/17 17:45 08/09/17 05:11 Assessment and Plan Problem List: (1) Confusion and disorientation ICD Codes: F99 - Mental disorder, not otherwise specified (2) Hypothyroid ICD Codes: E03.9 - Hypothyroid Status: Chronic (3) HTN (hypertension) ICD Codes: I10 - HTN (hypertension) Status: Chronic (4) Seizure ICD Codes: R56.9 - Unspecified convulsions Status: Chronic (5) Altered mental status ICD Codes: R41.82 - Altered mental status, unspecified Status: Acute (6) UTI (urinary tract infection) ICD Codes: N39.0 - Urinary tract infection, site not specified Status: Acute Assessment and Plan 08/08/17 AMS: Neurology consulted. EEG ordered and plan on MRI. Patient is alert and cooperative at visit but not oriented. UTI: Continue ceftin Anxiety: Psych consulted and managing. HTN: Metoprolol resumed. B/P 126/73 with heart rate of 100 Hypothyroidism; On replacement. Thyroid panel checked Seizures: Keppra resumed. Level ordered for AM Hyponatremia: Improving on IVF Asthma: Breathing treatments ordered as needed. lungs clear 08/09/17 AMS: Neurology consulted. EEG ordered and WNL and MRI done Ammonia level WNL. Patient continues to be disoriented. UTI: Continue ceftin with stop date of the Anxiety: Psych consulted and managing. Xanax PRN HTN: On metoprolol and valstartan resumed today B/P 151/79 Hypothyroidism; On replacement. Seizures: Keppra resumed. Level ordered for AM and is pending. Hyponatremia: resolved will discontiue IVF Hypokalmeia: Potassium 3.0 today will order replacement. Loose stools: C Diff ordered. I and the GRADUATE INTERN have both examined this patient and reviewed this note and I agree with these findings an plan of care. Alex Tarango DO Problem Qualifiers (1) Altered mental status: Qualified Codes: R40.4 - Transient alteration of awareness (2) UTI (urinary tract infection): Qualified Codes: N39.0 - Urinary tract infection, site not specified Jackeline Buchanan GRADUATE INTERN Aug 09, 2017 10:53
[2017-08-09] MEDS ORDERED: POTASSIUM CHLORIDE 20 MEQ CONTROLLED RELEASE TAB PO ONE (12:00)
[2017-08-09] MEDS: VALSARTAN 160 MG TAB PO SCH (12:20)
[2017-08-09 15:35] VITALS: BP 175/95; PULSE 70; RESP 20; TEMP 99.6; O2SAT 95
[2017-08-09 16:49] VITALS: BP_SYST 138; BP_SYST 151; BP_DIAS 78; BP_DIAS 90; PULSE 73
[2017-08-09 17:08] VITALS: TEMP 98.2
[2017-08-09] MEDS: ENOXAPARIN SODIUM 40 MG/0.4 ML SYRINGE SQ SCH (17:09)
[2017-08-09 20:20] VITALS: BP 126/70; PULSE 78; RESP 18; TEMP 98.2; O2SAT 96
[2017-08-09] MEDS: POTASSIUM CHLORIDE 20 MEQ CONTROLLED RELEASE TAB PO SCH (20:43)
[2017-08-09] MEDS: MONTELUKAST SODIUM 10 MG TAB PO SCH (20:43)
[2017-08-10 04:11] VITALS: BP 116/78; PULSE 91; RESP 18; TEMP 97.7; O2SAT 96
[2017-08-10] MEDS: LEVOTHYROXINE SODIUM 112 MCG TAB PO SCH (06:50)
[2017-08-10 07:08] LABS: HEMATOCRIT 35.2 % (35.0-46.0); MEAN CORPUSCULAR HEMOGLOBIN 33.4 PG (27.0-34.0); MEAN CORPUSCULAR HGB CONC 33.7 % (32.0-36.0); PLATELET COUNT 273 TH/MM3 (150-450); RED BLOOD COUNT 3.56 MIL/MM3 (4.00-5.30); RED CELL DISTRIBUTION WIDTH 14.5 % (11.6-17.2); REVIEW FLAG FINAL
[2017-08-10 07:49] LABS: ANION GAP 10 MEQ/L (5-15); BICARBONATE 22.1 MEQ/L (21.0-32.0); BLOOD UREA NITROGEN LESS THAN 1 MG/DL (7-18); CHLORIDE 103 MEQ/L (98-107); GLOMERULAR FILTRATION RATE 113 ML/MIN (>89); SODIUM (NA) 135 MEQ/L (136-145)
[2017-08-10 08:05] LABS: POTASSIUM 4.3 MEQ/L (3.5-5.1)
[2017-08-10 08:18] VITALS: BP 125/83; PULSE 69; RESP 20; TEMP 97.9; O2SAT 98
[2017-08-10] MEDS: DOCUSATE SODIUM 50 MG/SENNA 8.6 MG TAB PO SCH (09:00)
[2017-08-10] MEDS: GABAPENTIN 300 MG CAP PO SCH (09:07)
[2017-08-10] MEDS: VALSARTAN 160 MG TAB PO SCH (09:07)
[2017-08-10] MEDS: FAMOTIDINE 20 MG TAB PO SCH (09:07)
[2017-08-10] MEDS: POTASSIUM CHLORIDE 20 MEQ CONTROLLED RELEASE TAB PO SCH (09:07)
[2017-08-10] MEDS: METOPROLOL TARTRATE 100 MG TAB PO SCH (09:08)
[2017-08-10] MEDS: SODIUM CHLORIDE 0.9% FLUSH 10 ML FLUSH IV FLUSH SCH (09:08)
[2017-08-10] MEDS: levETIRAcetam 500 MG TAB PO SCH (09:08)
[2017-08-10] MEDS: CEFUROXIME AXETIL 500 MG TAB PO SCH (09:08)
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
== END 2017-08-10 11:09 ==
LOC: NEPC 14:37 → NEDA 17:01 → NEPFCDU 18:00
PROVIDERS: ADMIT Family Medicine; ATTEND Family Medicine
DX: F99 Mental disorder, not otherwise specified (principal); R41.82 Altered mental status, unspecified; I10 Essential (primary) hypertension; R94.31 Abnormal electrocardiogram [ECG] [EKG]; K21.9 Gastro-esophageal reflux disease without esophagitis; N39.0 Urinary tract infection, site not specified; B96.20 Unspecified Escherichia coli [E. coli] as the cause of diseases classified elsewhere; E03.9 Hypothyroidism, unspecified; E87.1 Hypo-osmolality and hyponatremia; G93.40 Encephalopathy, unspecified; R56.9 Unspecified convulsions; F41.9 Anxiety disorder, unspecified; J45.909 Unspecified asthma, uncomplicated; M19.90 Unspecified osteoarthritis, unspecified site; Z79.899 Other long term (current) drug therapy; Z23 Encounter for immunization
CPT/HCPCS: 70450; 70553; 71010; 80048; 80053; 80177; 80307; 81001; 82140; 82550; 84439; 84443; 84481; 84484; 85025; 85027; 85610; 87040; 87077; 87086; 87186; 87389; 90686; 93005; 95819; 96360; 96361; 96365; 96372; 97162; 99285; A9579; G0378; G8987; G8988; J0696; J1650; J7030; Q2038

== ENCOUNTER 2017-08-10 11:12 | Inpatient (IN) | payer BC ==
[~2017-08-10 11:12] MED LIST changes: +ASCO500T PO; +CHOL5000 PO; +METO100T PO; +VALS1TAB65 PO; +VITA200C3 PO
[2017-08-10 12:42] VITALS: BP 118/79; PULSE 67; RESP 16; TEMP 98.5; O2SAT 96
[2017-08-10] MEDS: ARIPiprazole 2 MG TAB PO SCH (14:30)
[2017-08-10] MEDS ORDERED: MAGNESIUM HYDROXIDE SUSP 30 ML CUP PO PRN (14:30)
[2017-08-10] MEDS ORDERED: LORazepam 2 MG/ML VIAL IV PUSH PRN ×4 (14:30)
[2017-08-10] MEDS ORDERED: ALUMINUM/MAGNESIUM/SIMETH 30 ML CUP PO PRN (14:30)
[2017-08-10] MEDS: NICOTINE 21 MG/24 HR PATCH T-DERMAL SCH (14:30)
[2017-08-10] MEDS ORDERED: LORazepam 2 MG TAB PO PRN (14:30)
[2017-08-10] MEDS ORDERED: FLUMAZENIL 0.5 MG/5 ML VIAL IV PUSH PRN (14:30)
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
[2017-08-10] MEDS: LORazepam 1 MG TAB PO PRN (15:31)
[2017-08-10] MEDS: GABAPENTIN 300 MG CAP PO SCH (17:29)
[2017-08-10] MEDS: levETIRAcetam 500 MG TAB PO SCH (17:29)
[2017-08-10 18:00] VITALS: BP 134/71; PULSE 71; RESP 18; TEMP 98; O2SAT 97
[2017-08-10 20:03] VITALS: BP 134/71; PULSE 71; RESP 18; TEMP 98.1; O2SAT 97
[2017-08-10 20:42] LABS: C. DIFF EPI 027 PRESUMPTIVE NEGATIVE (NEGATIVE)
[2017-08-10] MEDS: MONTELUKAST SODIUM 10 MG TAB PO SCH (20:51)
[2017-08-10] MEDS: METOPROLOL TARTRATE 100 MG TAB PO SCH (20:52)
[2017-08-11 05:39] VITALS: BP 121/69; PULSE 77; RESP 15; TEMP 98.6; O2SAT 95
[2017-08-11] MEDS: LEVOTHYROXINE SODIUM 112 MCG TAB PO SCH (06:08)
[2017-08-11] MEDS: GABAPENTIN 300 MG CAP PO SCH ×3 (08:48→17:40)
[2017-08-11] MEDS: VALSARTAN 160 MG TAB PO SCH (08:48)
[2017-08-11] MEDS: ARIPiprazole 2 MG TAB PO SCH (08:49)
[2017-08-11] MEDS: METOPROLOL TARTRATE 100 MG TAB PO SCH ×2 (08:49→20:58)
[2017-08-11] MEDS: levETIRAcetam 500 MG TAB PO SCH ×3 (08:49→17:40)
[2017-08-11] MEDS: NICOTINE 21 MG/24 HR PATCH T-DERMAL SCH (09:00)
[2017-08-11 11:55] LABS: HDL CHOLESTEROL 38.4 MG/DL (40.0-60.0)
[2017-08-11 12:03] LABS: ANION GAP 11 MEQ/L (5-15); BICARBONATE 21.7 MEQ/L (21.0-32.0); BLOOD UREA NITROGEN 2 MG/DL (7-18); CHLORIDE 100 MEQ/L (98-107); GLOMERULAR FILTRATION RATE 135 ML/MIN (>89); LDL CHOLESTEROL 83 MG/DL (0-99); POTASSIUM 3.7 MEQ/L (3.5-5.1); SODIUM (NA) 133 MEQ/L (136-145)
--- NOTE | 2017-08-11 14:52 | HHI.HP ---
Provisional Diagnosis Admission Date Aug 10, 2017 at 11:12 [place] I. Unspecified psychosis Certification of Person's Competence To Provide Express and Informed Consent I have personally examined Hoa Arceo , a person being served at [facility] on, Aug 11, 2017 14:44. Express and informed consent means consent voluntarily given in writing, by a competent person, after sufficient explanation and disclosure of the subject matter involved to enable the person to make a knowing and willful decision without any element of force, fraud, deceit, duress, or other form of constraint or coercion. This person is 18 years of age or older, is not now known to be incompetent to consent to treatment with a guardian advocate, and does not have a health care surrogate or proxy currently making medical treatment decisions. I have found this person to be one of the following: [] Competent to provide express and informed consent, as defined above, for voluntary admission to this facility and is competent to provide express and informed consent for treatment. He/she has the consistent capacity to make well reasoned, willful, and knowing decisions concerning his or her medical or mental health treatment. The person fully and consistently understands the purpose of the admission for examination/placement and is fully capable of personally exercising all rights assured [place] Incompetent to provide express and informed consent to voluntary admission, and this is incompetent to provide express and informed consent to treatment. The person must be transferred to involuntary status and a petition for a guardian advocate filed with the Circuit Court. [X] Refusing to provide express and informed consent to voluntary admission but is competent to provide express and informed consent for treatment. The person must be discharged or transferred to involuntary status. Form shall be completed within 24 hours of a person's arrival at the receiving facility and filed in the clinical record of each person: 1. Admitted on a voluntary basis 2. Permitted to provide express and informed consent to his/her own treatment 3. Allowed to transfer from involuntary to voluntary status 4. Prior to permitting a person to consent to his or her own treatment after having been previously found incompetent to consent to treatment. History of Present Illness Capacity: Has Capacity HPI The patient is a 52-year-old woman, domicile with her in [facility], single, unemployed, with reported a psychiatric history of anxiety, alcohol use disorder, no previous psychiatric hospitalizations, no previous suicidal attempts, she is on Xanax 1 mg twice a day, prescribed by PCP, with a medical history of seizures, asthma, hypothyroidism, and hypertension admitted this time the medical unit due to disorganized speech and psychosis. Patient was seen by me yesterday in the ER : The patient was seen today for psychiatric reevaluation, patient was seen and cleared by Dr. Fletcher yesterday, documentation review,. However, today patient seems to be very confused, confabulates very often, and has prominent loosening of associations. Patient says that she is here because she had the flu last week, and she is here for vaccination. Patient does not know the date, she says that his November 1989. She doesn't know the name of the institution, the name of the town, and she says that she is in [place]. Patient seems to be internally preoccupied, but denies visual and auditory hallucinations. Patient denies suicidal and homicidal ideation. Cognitive assessment patient has a conserved naming, repetition, abstract thinking, but visibly impaired executive function, recent and immediate recall and orientation. Her attention and concentration span doesn't seem to be very impaired. Today on reevaluation in the med psych unit, patient continues to be disorganized, confabulating, but she is more focused, and make more sense. Mini-Mental state today shows that the patient is oriented 3, able to repeat 3 words, and recalled in 5 minutes later, good attention, good language, abstract thinking, executive function. MMS is now 28/ 30. However, as per nurses, just hours ago patient was completely disoriented in time and place, patient thought that her mother and her father, who are confirmed , are both coming to pick her up. She denies suicidal and homicidal ideation, she denies visual and auditory hallucinations. Review of Systems Constitutional: DENIES: Diaphoretic episodes, Fatigue, Fever, Weight gain, Weight loss, Chills, Dizziness, Change in appetite, Night Sweats Endocrine: DENIES: Abnorml menstrual pattern, Heat/cold intolerance, Polydipsia , Polyuria, Polyphagia Eyes: DENIES: Blurred vision, Diplopia, Eye inflammation, Eye pain, Vision loss , Photosensitivity, Double Vision Ears, nose, mouth, throat: DENIES: Tinnitus, Hearing loss, Vertigo, Nasal discharge, Oral lesions, Throat pain, Hoarseness, Ear Pain, Running Nose, Epistaxis, Sinus Pain, Toothache, Odynophagia Respiratory: DENIES: Apneas, Cough, Snoring, Wheezing, Hemoptysis, Sputum production, Shortness of breath Genitourinary: DENIES: Abnormal vaginal bleeding, Dysmenorrhea, Dyspareunia, Sexual dysfunction, Urinary frequency, Urinary incontinence, Urgency, Hematuria , Dysuria, Nocturia, Vaginal discharge Hematologic/lymphatic: DENIES: Bruising, Lymphadenopathy Neurologic: DENIES: Abnormal gait, Headache, Localized weakness, Paresthesias, Seizures, Speech Problems, Tremor, Poor Balance Psychiatric: COMPLAINS OF: Confusion, Delusions, DENIES: Anxiety, Mood changes , Depression, Hallucinations, Agitation, Suicidal Ideation, Homicidal Ideation Substance Abuse History Drugs/Alcohol past 12 months She has a history of extensive alcoholism, she drinks 2-4 beers per day. Past Family Social History Coded Allergies: enalaprilat (Verified Allergy, Severe, Swelling, 07/26/17) morphine (Verified Allergy, Severe, Anaphylaxis, 07/26/17) latex (Verified Adverse Reaction, Severe, Rash, 07/26/17) lidocaine (Verified Adverse Reaction, Intermediate, Swelling, 07/26/17) CAUSED FACIAL SWELLING. Active Scripts Thiamine HCl (Gnp Vitamin B-1) 100 Mg Tab, 100 MG PO DAILY for Vitamin, #30 TAB Prov:Michel Bee DO 08/01/17 Folic Acid (Folic Acid) 1 Mg Tablet, 1 MG PO DAILY for Vitamin, #30 TAB Prov:Michel Bee DO 08/01/17 Reported Medications Metoprolol Tartrate (Metoprolol Tartrate) 100 Mg Tab, 100 MG PO BID, #60 TAB 0 Refills 08/06/17 Vitamin E (Vitamin E) 200 Unit Cap, 400 UNITS PO DAILY for Nutritional Supplement, CAP 0 Refills 08/06/17 Cholecalciferol (Vitamin D3) 5,000 Unit Cap, 5000 UNITS PO MONTHLY for Nutritional Supplement, #30 CAP 0 Refills 08/06/17 Valsartan (Valsartan) 160 Mg Tab, 160 MG PO DAILY, #30 TAB 0 Refills 08/06/17 Ascorbic Acid (Ascorbic Acid) 500 Mg Tab, 500 MG PO DAILY, TAB 08/06/17 Levothyroxine (Levothyroxine) 112 Mcg Tab, 112 MCG PO DAILY for Thyroid, #30 TAB 0 Refills 07/26/17 Montelukast (Singulair) 10 Mg Tab, 10 MG PO HS, #30 TAB 0 Refills 07/26/17 Levetiracetam (Keppra) 500 Mg Tab, 500 MG PO TID for Control Seizures, #60 TAB 0 Refills 07/26/17 Gabapentin (Gabapentin) 300 Mg Cap, 300 MG PO TID, #90 CAP 0 Refills 07/26/17 Discontinued Scripts Hydrocodone-Acetaminophen (Hydrocodone-Acetaminophen) 5-325 mg Tab, 1 TAB PO Q6H Y for PAIN>5, #20 TAB Prov:Michel Bee DO 08/01/17 Clonazepam (Clonazepam) 0.5 Mg Tab, 0.5 MG PO BID for Anxiety and/or Insomnia, # 20 TAB 0 Refills Prov:Maverick Beewu DO 08/01/17 Current Medications Medications (Trade) Dose Ordered Sig/Barrera Route Start Time Stop Time Status Last Admin (Tylenol) 650 mg Q4H PRN PO 08/10/17 14:30 (Milk Of Magnesia Liq) 30 ml DAILY PRN PO 08/10/17 14:30 (Mag-Al Plus Susp Liq) 30 ml Q6H PRN PO 08/10/17 14:30 (Habitrol 21 Mg Patch.24 Hr) 1 patch DAILY T-DERMAL 08/10/17 14:30 (Romazicon Inj) 0.2 mg Q1M PRN IV PUSH 08/10/17 14:30 (Ativan) 1 mg Q4H PRN PO 08/10/17 14:30 08/10/17 15:31 (Ativan Inj) 1 mg Q4H PRN IV PUSH 08/10/17 14:30 (Ativan) 2 mg Q2H PRN PO 08/10/17 14:30 (Ativan Inj) 2 mg Q2H PRN IV PUSH 08/10/17 14:30 (Ativan Inj) 2 mg Q1H PRN IV PUSH 08/10/17 14:30 (Ativan Inj) 2 mg Q15M PRN IV PUSH 08/10/17 14:30 (Abilify) 2 mg DAILY PO 08/10/17 14:30 08/11/17 08:49 (Neurontin) 300 mg TID PO 08/10/17 18:00 08/11/17 13:16 (Keppra) 500 mg TID PO 08/10/17 18:00 08/11/17 13:16 (Synthroid) 112 mcg DAILY@0600 PO 08/11/17 06:00 08/11/17 06:08 (Lopressor) 100 mg BID PO 08/10/17 21:00 08/11/17 08:49 (Singulair) 10 mg HS PO 08/10/17 21:00 08/10/17 20:51 (Diovan) 160 mg DAILY PO 08/11/17 09:00 08/11/17 08:48 Physical Exam Vital Signs Vital Signs Date Time Temp Pulse Resp B/P (MAP) Pulse Ox O2 Delivery O2 Flow Rate FiO2 08/11/17 05:39 98.6 77 15 121/69 (86) 95 Lab Results Test 08/10/17 18:24 08/11/17 10:15 Stool C. difficile Toxin (PCR) NEGATIVE Stl C. difficile Toxin Epiderm 027 PRESUMPTIVE NEGATIVE Blood Urea Nitrogen 2 MG/DL Creatinine 0.48 MG/DL Random Glucose 79 MG/DL Calcium Level 9.2 MG/DL Sodium Level 133 MEQ/L Potassium Level 3.7 MEQ/L Chloride Level 100 MEQ/L Carbon Dioxide Level 21.7 MEQ/L Anion Gap 11 MEQ/L Estimat Glomerular Filtration Rate 135 ML/MIN Triglycerides Level 97 MG/DL Cholesterol Level 141 MG/DL LDL Cholesterol 83 MG/DL HDL Cholesterol 38.4 MG/DL Cholesterol/HDL Ratio 3.67 RATIO Mental Status Examination Appearance woman, overweight, she is calm and cooperative Speech: Unremarkable Orientation: x3 Thought Process: Loose Association Thought Content: Unremarkable Hallucination Type: None Attention and Concentration: Good Suicidal Ideation: No Previous Suicide Attempts: No Homicidal Ideation: No Previous Homicide Attempts: No Judgment: Poor Affect: Good Mood: Appropriate Motor Activity: Normal gait Assessment & Plan Problem List: (1) Unspecified psychosis ICD Codes: F29 - Unspecified psychosis not due to a substance or known physiological condition Assessment & Plan: ON Psychiatric evaluation patient presents with confusion, disorientation, impairment in executive function and other aspects of cognition , but conserved abstract thinking, language and concentration. Patient also frequently confabulates and have loosening of associations. Brain MRI, EEG done showed any significant finding. There is no visible medical etiology of current presentation. Alcohol dementia, alcohol and benzodiazepine withdrawal, early onset of neurocognitive dysfunction and unspecified psychosis need to be in the differential. Will admit the patient psychiatry on the [facility] longitudinal observation, further investigation of reversible causes of dementia or treatable psychosis. adult day care worker intervention from collateral information, for psychosocial assessment, individual and group therapy, coordinate a safe discharge. We will Reconsult medicine and neurology. Consulted psychiatry for second opinion. Assessment & Plan Estimated LOS: days Qasim Tilley MD Aug 11, 2017 14:52
[2017-08-11 16:36] LABS: HEMOGLOBIN A1a 1.1 %; HEMOGLOBIN A1b 1.1 %; HEMOGLOBIN Ao 87.8 %; HEMOGLOBIN F 0.4 %; HEMOGLOBIN LA1C 1.7 %
[2017-08-11 17:35] VITALS: BP 113/70; PULSE 77; RESP 17; TEMP 98.5; O2SAT 97
[2017-08-11] MEDS: ACETAMINOPHEN 325 MG TAB PO PRN (20:58)
[2017-08-11] MEDS: LORazepam 1 MG TAB PO PRN (20:58)
[2017-08-11] MEDS: MONTELUKAST SODIUM 10 MG TAB PO SCH (21:00)
[2017-08-12 05:02] VITALS: BP 139/64; PULSE 81; RESP 16; TEMP 97.4; O2SAT 95
[2017-08-12] MEDS: LEVOTHYROXINE SODIUM 112 MCG TAB PO SCH (06:22)
[2017-08-12] MEDS: NICOTINE 21 MG/24 HR PATCH T-DERMAL SCH (09:00)
[2017-08-12] MEDS: ARIPiprazole 2 MG TAB PO SCH (09:12)
[2017-08-12] MEDS: GABAPENTIN 300 MG CAP PO SCH ×3 (09:12→18:34)
[2017-08-12] MEDS: VALSARTAN 160 MG TAB PO SCH (09:12)
[2017-08-12] MEDS: METOPROLOL TARTRATE 100 MG TAB PO SCH ×2 (09:12→21:00)
[2017-08-12] MEDS: levETIRAcetam 500 MG TAB PO SCH ×3 (09:12→18:33)
--- NOTE | 2017-08-12 11:45 | HHI.PYPN ---
Subjective Remarks Patient was seen today for psychiatric reevaluation, patient was found sleeping , but easily arousable. Patient continues to be very disoriented, is oriented in person, but she thinks that she is at home today, being [place] 1943. Patient also seems to be paranoid, she says that "some people here are talking about me behind the galarza". But, she denies suicidal and homicidal ideation, she denies visual and auditory hallucinations. No psychomotor agitation or retardation present. She is compliant with her medications, no significant side effects. Review of Systems Other No somatic complaints Objective Alert: Yes Bradley: Person Mood: Angry, Oppositional Affect: Restricted Memory Intact: Comment (impaired) Hallucinations: Other (she denies) Delusions: No Delusion Type: Other (not elicited) Suicidal: Ideation (no SI) Homicidal: Ideation (no HI) Insight/Judgment Poor Vitals/IOs Vital Signs Date Time Temp Pulse Resp B/P (MAP) Pulse Ox O2 Delivery O2 Flow Rate FiO2 08/12/17 05:02 97.4 81 16 139/64 (89) 95 Assessment & Plan Problem List: (1) Unspecified psychosis ICD Codes: F29 - Unspecified psychosis not due to a substance or known physiological condition Assessment & Plan: We'll start Aricept 5 mg for cognitive impairment, will increase to live for to 5 mg daily for paranoia. Assessment & Plan Estimated LOS: days Justification for Cont. Inpt. Patient is to continue psychiatric hospitalization for stabilization and safety. Qasim Tilley MD Aug 12, 2017 11:45
[2017-08-12] MEDS: DONEPEZIL HCL 5 MG TAB PO SCH (14:00)
--- NOTE | 2017-08-12 17:34 | PD.CONS ---
[facility] By [facility]iatry team, Dr. Mcguire Reason for Consult Assist with medical management AMS, seizures Primary Care Physician Unknown Diagnoses: History of Present Illness Patient is a 52-year-old female with primary medical history of anxiety, seizures, asthma, hypothyroidism, hypertension who initially came in to the hospital brought in by EMS for confusion from rehabilitation center. Per review of records, patient was initially in rehabilitation for generalized weakness. CT and MRI of the brain was done, also EEG was done with no acute findings. Patient was noted to have urinary tract infection and placed on antibiotics. She was cleared from neurology and not discharged to inpatient medical psychiatry unit for further evaluation. Consulted for medical management. Patient seen and examined today. Sitting at the end of the bed. States that she went to the hospital because of generalized weakness and history of recurrent falls. States that she is in the subsection of [facility]. Unable to tell the date or time. Oriented to self. Response to some questions and follows commands. Notable periods of confusion. She states that with effort medication she is due to be given to just send it to [facility] she is going to pick it up tonight when she walks home. Denies pain and discomfort. Denies SOB/ dyspnea. Denies chest pain, headaches, dizziness. Denies fevers, chills, n /v/d. Review of Systems ROS Limitations: Poor Historian Past Family Social History Allergies: Coded Allergies: enalaprilat (Verified Allergy, Severe, Swelling, 07/26/17) morphine (Verified Allergy, Severe, Anaphylaxis, 07/26/17) latex (Verified Adverse Reaction, Severe, Rash, 07/26/17) lidocaine (Verified Adverse Reaction, Intermediate, Swelling, 07/26/17) CAUSED FACIAL SWELLING. Past Medical History Anxiety Alcohol use Seizures Asthma Hypothyroidism Hypertension Past Surgical History Kidney left Abdominal surgery, part of small intestine removed Cholecystectomy Appendectomy Reported Medications Reported Meds & Active Scripts Active Gnp Vitamin B-1 (Thiamine HCl) 100 Mg Tab 100 Mg PO DAILY Folic Acid 1 Mg Tablet 1 Mg PO DAILY Reported Metoprolol Tartrate 100 Mg Tab 100 Mg PO BID Vitamin E 200 Unit Cap 400 Units PO DAILY Vitamin D3 (Cholecalciferol) 5,000 Unit Cap 5,000 Units PO MONTHLY Valsartan 160 Mg Tab 160 Mg PO DAILY Ascorbic Acid 500 Mg Tab 500 Mg PO DAILY Levothyroxine (Levothyroxine Sodium) 112 Mcg Tab 112 Mcg PO DAILY Singulair (Montelukast Sodium) 10 Mg Tab 10 Mg PO HS Keppra (Levetiracetam) 500 Mg Tab 500 Mg PO TID Gabapentin 300 Mg Cap 300 Mg PO TID Active Ordered Medications Current Medications Medications (Trade) Dose Ordered Sig/Barrera Route Start Time Stop Time Status Last Admin (Tylenol) 650 mg Q4H PRN PO 08/10/17 14:30 (Milk Of Magnesia Liq) 30 ml DAILY PRN PO 08/10/17 14:30 (Mag-Al Plus Susp Liq) 30 ml Q6H PRN PO 08/10/17 14:30 (Habitrol 21 Mg Patch.24 Hr) 1 patch DAILY T-DERMAL 08/10/17 14:30 (Romazicon Inj) 0.2 mg Q1M PRN IV PUSH 08/10/17 14:30 (Ativan) 1 mg Q4H PRN PO 08/10/17 14:30 08/11/17 20:58 (Ativan Inj) 1 mg Q4H PRN IV PUSH 08/10/17 14:30 (Ativan) 2 mg Q2H PRN PO 08/10/17 14:30 (Ativan Inj) 2 mg Q2H PRN IV PUSH 08/10/17 14:30 (Ativan Inj) 2 mg Q1H PRN IV PUSH 08/10/17 14:30 (Ativan Inj) 2 mg Q15M PRN IV PUSH 08/10/17 14:30 (Neurontin) 300 mg TID PO 08/10/17 18:00 08/12/17 15:03 (Keppra) 500 mg TID PO 08/10/17 18:00 08/12/17 15:03 (Synthroid) 112 mcg DAILY@0600 PO 08/11/17 06:00 08/12/17 06:22 (Lopressor) 100 mg BID PO 08/10/17 21:00 08/12/17 09:12 (Singulair) 10 mg HS PO 08/10/17 21:00 08/11/17 21:00 (Diovan) 160 mg DAILY PO 08/11/17 09:00 08/12/17 09:12 (Abilify) 5 mg DAILY PO 08/13/17 09:00 (Aricept) 5 mg DAILY PO 08/12/17 14:00 (Mycostatin Cream) 1 applic Q12HR TOPICAL 08/12/17 21:00 Family History Father and mother had arthritis Social History Reports drinking vodka almost daily, 1-4 shots with mixers Denies tobacco use Denies illicit drug use Physical Exam Vital Signs Vital Signs Date Time Temp Pulse Resp B/P (MAP) Pulse Ox O2 Delivery O2 Flow Rate FiO2 08/12/17 05:02 97.4 81 16 139/64 (89) 95 08/11/17 17:35 98.5 77 17 113/70 (84) 97 Physical Exam GENERAL: This is a well-nourished, well-developed patient, in no apparent distress. SKIN: Warm and dry. Perianal area focal rash. HEAD: Normocephalic. EYES: Pupils equal round and reactive. Extraocular motions intact. No scleral icterus. No injection or drainage. ENT: Nose without bleeding. Throat without erythema. Uvula midline. Airway patent. NECK: Trachea midline. Supple. CARDIOVASCULAR: Regular rate and rhythm without murmurs, gallops, or rubs. RESPIRATORY: Clear to auscultation. Breath sounds equal bilaterally. No wheezes , rales, or rhonchi. GASTROINTESTINAL: Abdomen soft, non-tender, nondistended. Bowel sounds active 4. MUSCULOSKELETAL: Extremities without clubbing, cyanosis, trace BLE edema. Facial edema. NEUROLOGICAL: Awake and alert. Confuse. Pleasant. Oriented to person, self, place. Normal speech. Result Diagram: 08/11/17 1015 Assessment and Plan Problem List: (1) Unspecified psychosis ICD Code: F29 - Unspecified psychosis not due to a substance or known physiological condition (2) Adjustment disorder with anxiety ICD Code: F43.22 - Adjustment disorder with anxiety (3) Hypothyroid ICD Code: E03.9 - Hypothyroid Status: Chronic (4) HTN (hypertension) ICD Code: I10 - HTN (hypertension) Status: Chronic (5) Seizure ICD Code: R56.9 - Unspecified convulsions Status: Chronic (6) Hyponatremia ICD Code: E87.1 - Hypo-osmolality and hyponatremia Assessment and Plan Patient is a 52-year-old female with primary medical history of anxiety, seizures, asthma, hypothyroidism, hypertension who initially came in to the hospital brought in by EMS for confusion from rehabilitation center. Per review of records, patient was initially in rehabilitation for generalized weakness. CT and MRI of the brain was done, also EEG was done with no acute findings. Patient was noted to have urinary tract infection and placed on antibiotics. She was cleared from neurology and not discharged to inpatient medical psychiatry unit for further evaluation. Consulted for medical management. Psychosis, adjustment disorder - Management by psychiatry team Encephalopathy, metabolic ?Alcohol Dementia - Reports ETOH use prolonged, 1-4 shots vodka - Hyponatremia 133 - BUN 2, Lasix 40mg daily x 3 days - Recent urinary tract infection treated with Rocephin, ceftin 08/07-08/13 - Monitor BMP. Seizures, hx - Patient states last known seizure hospitalization was 2 years ago. But is unsure of recurrent seizures since she doesn't remember when it occurs, they just tell her. - Continue Keppra 500 mg 3 times a day - Previous EEG normal awake EEG. No evidence of focal or diffuse abnormality. - Seizure precaution HTN - Continue metoprolol 100 mg twice a day, valsartan 160 mg daily - Monitor BP trend Candidiasis - Start nystatin cream - Pericare daily Generalized Weakness, previous falls reported - PT eval and treat - Fall precaution DVT prop early ambulation Discussed Condition With Patient, nursing, Herson Pitts Aug 12, 2017 17:34
[2017-08-12 18:00] VITALS: BP 166/96; PULSE 88; RESP 18; TEMP 98; O2SAT 97
[2017-08-12] MEDS: FUROSEMIDE 40 MG TAB PO SCH (18:30)
[2017-08-12] MEDS: POTASSIUM CHLORIDE 20 MEQ CONTROLLED RELEASE TAB PO SCH (18:33)
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
[2017-08-12] MEDS: NYSTATIN 100,000 UNIT/GM CREAM 15 GM TOPICAL SCH (21:00)
[2017-08-12] MEDS: MONTELUKAST SODIUM 10 MG TAB PO SCH (21:00)
[2017-08-13 04:41] VITALS: BP 163/99; PULSE 101; RESP 17; TEMP 98.7; O2SAT 97
[2017-08-13] MEDS: LEVOTHYROXINE SODIUM 112 MCG TAB PO SCH (05:11)
--- NOTE | 2017-08-13 08:28 | HHI.PR ---
Subjective Remarks Follow-up visit psychosis, adjustment disorder, history of seizures, HTN, currently dialysis, AMS. Patient seen and examined today. Confuse. States she needs to get out of "[place], and be back in [facility] because I need to be back at work. 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 As per nursing, patient continues to be weak to person max assist. Continues to have confusions but able to follow commands and responds to some questions correctly. Patient complains of some chest tightness and she feels like she is wheezing, history of asthma reported. Denies SOB/ dyspnea. Denies chest pain, palpitations, headaches, dizziness. Denies fevers, chills, n/v/d. Objective Vitals Vital Signs Date Time Temp Pulse Resp B/P (MAP) Pulse Ox O2 Delivery O2 Flow Rate FiO2 08/13/17 04:41 98.7 101 17 163/99 (120) 97 08/12/17 18:00 98.0 88 18 166/96 (119) 97 I/O 08/12/17 08/12/17 08/12/17 08/13/17 08/13/17 08/13/17 07:00 15:00 23:00 07:00 15:00 23:00 Intake Total 240 ml 60 ml Output Total 1 ml Balance 239 ml 60 ml Intake Oral 240 ml 60 ml Output Stool Total 1 ml # Voids 1 1 1 # Bowel Movements 1 Result Diagram: 08/11/17 1015 Objective Remarks GENERAL: This is a well-nourished, well-developed patient, in no apparent distress. SKIN: Warm and dry. Perianal area focal rash. HEAD: Normocephalic. EYES: Pupils equal round and reactive. Extraocular motions intact. No scleral icterus. No injection or drainage. ENT: Nose without bleeding. Throat without erythema. Uvula midline. Airway patent. NECK: Trachea midline. Supple. CARDIOVASCULAR: Regular rate and rhythm without murmurs, gallops, or rubs. RESPIRATORY: Clear to auscultation. Breath sounds equal bilaterally. No wheezes , rales, or rhonchi. GASTROINTESTINAL: Abdomen soft, non-tender, nondistended. Bowel sounds active 4. MUSCULOSKELETAL: Extremities without clubbing, cyanosis, trace BLE edema - improved. NEUROLOGICAL: Awake and alert. Confuse. Pleasant. Oriented to person, self, place. Normal speech. A/P Problem List: (1) Unspecified psychosis ICD Code: F29 - Unspecified psychosis not due to a substance or known physiological condition (2) Adjustment disorder with anxiety ICD Code: F43.22 - Adjustment disorder with anxiety (3) Hypothyroid ICD Code: E03.9 - Hypothyroid Status: Chronic (4) HTN (hypertension) ICD Code: I10 - HTN (hypertension) Status: Chronic (5) Seizure ICD Code: R56.9 - Unspecified convulsions Status: Chronic (6) Hyponatremia ICD Code: E87.1 - Hypo-osmolality and hyponatremia Assessment and Plan Patient is a 52-year-old female with primary medical history of anxiety, seizures, asthma, hypothyroidism, hypertension who initially came in to the hospital brought in by EMS for confusion from rehabilitation center. Per review of records, patient was initially in rehabilitation for generalized weakness. CT and MRI of the brain was done, also EEG was done with no acute findings. Patient was noted to have urinary tract infection and placed on antibiotics. She was cleared from neurology and not discharged to inpatient medical psychiatry unit for further evaluation. Consulted for medical management. Psychosis, adjustment disorder - Management by psychiatry team Encephalopathy, metabolic ?Alcohol Dementia Confusion - Reports ETOH use prolonged, 1-4 shots vodka - Hyponatremia 133 - BUN 2, Lasix 40mg daily x 3 days - Recent urinary tract infection treated with Rocephin, ceftin 08/07-08/13 - Monitor BMP. - Speech for cognitive evaluation. Seizures, hx - Patient states last known seizure hospitalization was 2 years ago. But is unsure of recurrent seizures since she doesn't remember when it occurs, they just tell her. - Continue Keppra 500 mg 3 times a day - Previous EEG normal awake EEG. No evidence of focal or diffuse abnormality. - Seizure precaution HTN - Continue metoprolol 100 mg twice a day, valsartan 160 mg daily - Monitor BP trend Candidiasis - Nystatin cream - Pericare daily Generalized Weakness, previous falls reported - PT eval and treat - Fall precaution DVT prop early ambulation Herson Sheffield Aug 13, 2017 08:28
[2017-08-13] MEDS: NICOTINE 21 MG/24 HR PATCH T-DERMAL SCH (09:00)
[2017-08-13] MEDS: DONEPEZIL HCL 5 MG TAB PO SCH (09:27)
[2017-08-13] MEDS: POTASSIUM CHLORIDE 20 MEQ CONTROLLED RELEASE TAB PO SCH (09:28)
[2017-08-13] MEDS: VALSARTAN 160 MG TAB PO SCH (09:28)
[2017-08-13] MEDS: METOPROLOL TARTRATE 100 MG TAB PO SCH ×2 (09:28→21:33)
[2017-08-13] MEDS: levETIRAcetam 500 MG TAB PO SCH ×3 (09:28→17:40)
[2017-08-13] MEDS: FUROSEMIDE 40 MG TAB PO SCH (09:29)
[2017-08-13] MEDS: ARIPiprazole 5 MG TAB PO SCH (09:29)
[2017-08-13 09:30] VITALS: BP 155/92; PULSE 119
[2017-08-13] MEDS: NYSTATIN 100,000 UNIT/GM CREAM 15 GM TOPICAL SCH ×2 (09:30→21:33)
[2017-08-13] MEDS: GABAPENTIN 300 MG CAP PO SCH ×3 (09:33→17:40)
--- NOTE | 2017-08-13 10:00 | HHI.PYPN ---
Subjective Remarks Patient seen for follow-up, chart reviewed. Found lying in hospital bed, cooperative interview. Patient states "happy Thanksgiving" and believes it is September. Patient states that she was anticipating surgery today for her brain which she believes will correct her memory impairment. She states that her family had visited earlier this morning (which is not true). Patient is alert and oriented to person and place only. Patient continues report having leg weakness but upon examination have adequate strength at bedside and was attended to have patient stay was able to hold her weight for about 1 seconds until she sat back down on the bed but was noted for her to be able to push off with her legs to get back on the bed. Patient denies any SI, HI, AVH or delusions. Review of Systems Except as stated in HPI: all other systems reviewed are Neg Objective Alert: Yes Joseph: Person Mood: Calm Affect: Restricted Memory Intact: Comment (impaired) Hallucinations: Other (she denies) Delusions: No Delusion Type: Other (not elicited) Suicidal: Ideation (no SI) Homicidal: Ideation (no HI) Insight/Judgment Poor insight, impulse control is fair and judgment poor Vitals/IOs Vital Signs Date Time Temp Pulse Resp B/P (MAP) Pulse Ox O2 Delivery O2 Flow Rate FiO2 08/13/17 09:30 119 155/92 (113) 08/13/17 04:41 98.7 17 97 Intake and Output 08/13/17 08/13/17 08/14/17 08:00 16:00 00:00 Intake Total 60 ml Balance 60 ml Assessment & Plan Problem List: (1) Unspecified psychosis ICD Codes: F29 - Unspecified psychosis not due to a substance or known physiological condition Assessment & Plan Patient continues to be confused alert and oriented only to person and place ( hospital but not city) patient continues to report things that have not happened , for example having pain family visited her this morning, believing it is Thanks[place] and believing that she will be having surgery disorder in for her brain. Will order PT consult with occupational therapy consult. Continue current treatment and discharge planning in progress Justification for Cont. Inpt. At risk for decompensation if at lower level of care Dustin Perales MD Aug 13, 2017 10:00
[2017-08-13] MEDS: RESP: ALBUTEROL 2.5 MG/IPRATROPIUM 0.5 MG NEB (SCH) NEB (20:20)
[2017-08-13] MEDS: MONTELUKAST SODIUM 10 MG TAB PO SCH (21:33)
[2017-08-14 05:08] VITALS: BP 90/68; PULSE 96; RESP 18; TEMP 98.9; O2SAT 95
[2017-08-14 05:38] LABS: BICARBONATE 26.8 MEQ/L (21.0-32.0); POTASSIUM 3.4 MEQ/L (3.5-5.1)
[2017-08-14 05:43] LABS: INDIRECT BILIRUBIN 0.6 MG/DL (0.0-0.8)
[2017-08-14] MEDS: LEVOTHYROXINE SODIUM 112 MCG TAB PO SCH (05:57)
[2017-08-14] MEDS: LORazepam 1 MG TAB PO PRN ×2 (06:35→21:16)
[2017-08-14] MEDS: RESP: ALBUTEROL 2.5 MG/IPRATROPIUM 0.5 MG NEB (SCH) NEB ×2 (08:01→19:16)
--- NOTE | 2017-08-14 08:31 | HHI.PR ---
Subjective Remarks Follow-up visit psychosis, adjustment disorder, history of seizures, HTN, AMS. Patient seen and examined today. Confuse. States she has chest pain last night and she walked it off this she was told that if she walks around chest pain would go away. Verified with nursing, patient is not walking last night nor is unable to get out of bed without maximum assist. Patient states that chest pain is gone and she is feeling better. Confuse. Denies any pain or discomfort. Denies any shortness of breath or dyspnea. Denies any headaches, dizziness. Reports limited mobility that comes and goes but states she is able to sit up in the chair and do all her ADLs. Objective Vitals Vital Signs Date Time Temp Pulse Resp B/P (MAP) Pulse Ox O2 Delivery O2 Flow Rate FiO2 08/14/17 05:08 98.9 96 18 90/68 (75) 95 08/13/17 09:30 119 155/92 (113) I/O 08/13/17 08/13/17 08/13/17 08/14/17 08/14/17 08/14/17 07:00 15:00 23:00 07:00 15:00 23:00 Intake Total 60 ml 100 ml 220 ml 160 ml Balance 60 ml 100 ml 220 ml 160 ml Intake Oral 60 ml 100 ml 220 ml 160 ml # Voids 1 2 1 # Bowel Movements 1 Result Diagram: 08/14/17 0440 Objective Remarks GENERAL: This is a well-nourished, well-developed patient, in no apparent distress. SKIN: Warm and dry. Perianal area focal rash. HEAD: Normocephalic. EYES: Pupils equal round and reactive. Extraocular motions intact. No scleral icterus. No injection or drainage. ENT: Nose without bleeding. Throat without erythema. Uvula midline. Airway patent. NECK: Trachea midline. Supple. CARDIOVASCULAR: Regular rate and rhythm without murmurs, gallops, or rubs. RESPIRATORY: Clear to auscultation. Breath sounds equal bilaterally. No wheezes , rales, or rhonchi. GASTROINTESTINAL: Abdomen soft, non-tender, nondistended. Bowel sounds active 4. MUSCULOSKELETAL: Extremities without clubbing, cyanosis, trace BLE edema - improved. NEUROLOGICAL: Awake and alert. Confuse. Pleasant. Oriented to person. Normal speech. A/P Problem List: (1) Unspecified psychosis ICD Code: F29 - Unspecified psychosis not due to a substance or known physiological condition (2) Adjustment disorder with anxiety ICD Code: F43.22 - Adjustment disorder with anxiety (3) Hypothyroid ICD Code: E03.9 - Hypothyroid Status: Chronic (4) HTN (hypertension) ICD Code: I10 - HTN (hypertension) Status: Chronic (5) Seizure ICD Code: R56.9 - Unspecified convulsions Status: Chronic (6) Hyponatremia ICD Code: E87.1 - Hypo-osmolality and hyponatremia Assessment and Plan Patient is a 52-year-old female with primary medical history of anxiety, seizures, asthma, hypothyroidism, hypertension who initially came in to the hospital brought in by EMS for confusion from rehabilitation center. Per review of records, patient was initially in rehabilitation for generalized weakness. CT and MRI of the brain was done, also EEG was done with no acute findings. Patient was noted to have urinary tract infection and placed on antibiotics. She was cleared from neurology and not discharged to inpatient medical psychiatry unit for further evaluation. Consulted for medical management. Psychosis, adjustment disorder - Management by psychiatry team Encephalopathy, metabolic ?Alcohol Dementia Confusion - Patient has been worked up in the inpatient setting. EEG, MRI, CSF cultures have all been negative. - Reports ETOH use prolonged, 1-4 shots vodka - Recent urinary tract infection treated with Rocephin, Ceftin 08/07-08/13 - Monitor BMP. - Speech for cognitive evaluation. Seizures, hx - Patient states last known seizure hospitalization was 2 years ago. But is unsure of recurrent seizures since she doesn't remember when it occurs, they just tell her. - Continue Keppra 500 mg 3 times a day - Previous EEG normal awake EEG. No evidence of focal or diffuse abnormality. - Seizure precaution HTN - Continue metoprolol 100 mg twice a day, valsartan 160 mg daily - Monitor BP trend Candidiasis - Nystatin cream - Pericare daily Generalized Weakness, previous falls reported - PT eval and treat - Fall precaution Hyponatremia - DC lasix. Repeat BMP kathi - Check serum osmo, urine osmo - May benefit with Sodium tabs. Slow correction - Consult nephro if warranted Vitamin D deficiency - Start vitamin D supplementation 50,000 every weekly - Recheck vitamin D in 3 months as an outpatient DVT prop Lovenox Discussed with patient, nursing, Herson Pitts [facility] Aug 14, 2017 08:31
[2017-08-14] MEDS ORDERED: POTASSIUM CHLORIDE 25 MEQ EFFERVESCENT TAB PO ONE (08:45)
[2017-08-14] MEDS: NICOTINE 21 MG/24 HR PATCH T-DERMAL SCH (09:00)
[2017-08-14] MEDS: VALSARTAN 160 MG TAB PO SCH (09:19)
[2017-08-14] MEDS: METOPROLOL TARTRATE 100 MG TAB PO SCH ×2 (09:19→21:16)
[2017-08-14] MEDS: DONEPEZIL HCL 5 MG TAB PO SCH (09:19)
[2017-08-14] MEDS: ARIPiprazole 5 MG TAB PO SCH (09:19)
[2017-08-14] MEDS: GABAPENTIN 300 MG CAP PO SCH ×3 (09:19→17:23)
[2017-08-14] MEDS: POTASSIUM CHLORIDE 20 MEQ CONTROLLED RELEASE TAB PO SCH (09:19)
[2017-08-14] MEDS: levETIRAcetam 500 MG TAB PO SCH ×3 (09:19→17:23)
[2017-08-14] MEDS: NYSTATIN 100,000 UNIT/GM CREAM 15 GM TOPICAL SCH ×2 (09:20→21:17)
[2017-08-14] MEDS: ENOXAPARIN SODIUM 40 MG/0.4 ML SYRINGE SQ SCH (09:20)
--- NOTE | 2017-08-14 09:32 | HHI.PYPN ---
Subjective Remarks Patient seen for follow-up, chart reviewed. Patient found lying in hospital bed , cooperative interview. After discussion with nursing staff was reported that patient had complained of chest pain, this morning, vitals are stable. Prior interview patient was speaking with hospitalist. Patient states that she was having some chest pain this morning and some soreness of breath but had resolved after she got "my breathing treatment". And currently states feeling better. She reports having not slept well last evening and reports having " gone over" to her friends house named Clair garcia sees likely referring to her current roommate), yesterday and had return back to the hospital patient believes that she has been in the hospital for a couple of hours only. Patient alert and oriented only to place and person. Review of Systems Except as stated in HPI: all other systems reviewed are Neg Objective Alert: Yes Leonard: Person Mood: Calm Affect: Appropriate Memory Intact: Comment (impaired) Hallucinations: Other (she denies) Delusions: No Delusion Type: Other (not elicited) Suicidal: Ideation (no SI) Homicidal: Ideation (no HI) Insight/Judgment poor insight, fair impulse control and judgement Labs labs reviewed Test 08/14/17 04:40 Blood Urea Nitrogen 5 MG/DL Creatinine 0.69 MG/DL Random Glucose 80 MG/DL Total Protein 6.8 GM/DL Albumin 3.1 GM/DL Calcium Level 9.1 MG/DL Alkaline Phosphatase 36 U/L Aspartate Amino Transf (AST/SGOT) 46 U/L Alanine Aminotransferase (ALT/SGPT) 45 U/L Total Bilirubin 1.0 MG/DL Direct Bilirubin 0.4 MG/DL Sodium Level 129 MEQ/L Potassium Level 3.4 MEQ/L Chloride Level 89 MEQ/L Carbon Dioxide Level 26.8 MEQ/L Anion Gap 13 MEQ/L Estimat Glomerular Filtration Rate 89 ML/MIN Indirect Bilirubin 0.6 MG/DL 25-Hydroxy Vitamin D Total 5.9 ng/ML Vitals/IOs Vital Signs Date Time Temp Pulse Resp B/P (MAP) Pulse Ox O2 Delivery O2 Flow Rate FiO2 08/14/17 05:08 98.9 96 18 90/68 (75) 95 Intake and Output 08/14/17 08/14/17 08/15/17 08:00 16:00 00:00 Intake Total 160 ml Balance 160 ml Assessment & Plan Problem List: (1) Unspecified psychosis ICD Codes: F29 - Unspecified psychosis not due to a substance or known physiological condition Assessment & Plan Patient continues to be confused and oriented only to person and place. Patient continues with confabulation versus impaired memory. Patient continues to endorse inability to walk although upon examination and has adequate strength on both legs. We'll continue current treatment and monitor mood and behavior. Discharge planning in progress. Justification for Cont. Inpt. labs reviewed Dustin Perales MD Aug 14, 2017 09:32
[2017-08-14] MEDS: ERGOCALCIFEROL (VIT D2) 50,000 UNIT CAP PO SCH (11:08)
[2017-08-14 18:00] VITALS: BP 124/80; PULSE 94; RESP 18; TEMP 98.6; O2SAT 93
[2017-08-14] MEDS: MONTELUKAST SODIUM 10 MG TAB PO SCH (21:16)
[2017-08-15] MEDS: ACETAMINOPHEN 325 MG TAB PO PRN (03:26)
[2017-08-15 05:22] VITALS: BP 118/68; PULSE 69; RESP 16; TEMP 99.5; O2SAT 93
[2017-08-15 05:26] VITALS: BP 107/58; PULSE 86; RESP 16; TEMP 98.2; O2SAT 94
[2017-08-15 05:35] VITALS: BP 107/58; PULSE 86; RESP 16; TEMP 98.2; O2SAT 94
[2017-08-15] MEDS: LEVOTHYROXINE SODIUM 112 MCG TAB PO SCH (06:20)
--- NOTE | 2017-08-15 08:05 | HHI.PR ---
Subjective Remarks This is a pleasant 52 y/o Female with Anxiety disorder, Seizure disorder, Asthma , Hypothyroidism, Hypertension, initially came in to the hospital brought in by EMS for confusion from rehabilitation center. Per review of records, patient was initially in rehabilitation for generalized weakness. CT and MRI of the brain was done, also EEG was done with no acute findings. Patient was noted to have urinary tract infection and placed on antibiotics. She was cleared from neurology and not discharged to inpatient medical psychiatry unit for further evaluation. she complaint of generalized weakness and recurrent falls, Notable periods of confusion. 08/15: Stable seen in her bedroom in the presence of nurse also with Psychiatry specialist doctor Dustin Perales, encourage ambulation, replacing Electrolytes. at this time no complaint, no nausea, vomit or diarrhea, no signs of infection. Objective Vital Signs Date Time Temp Pulse Resp B/P (MAP) Pulse Ox O2 Delivery O2 Flow Rate FiO2 08/15/17 05:35 98.2 86 16 107/58 (74) 94 08/15/17 05:26 98.2 86 16 107/58 (74) 94 08/15/17 05:22 99.5 69 16 118/68 (85) 93 08/15/17 04:26 20 08/14/17 18:00 98.6 94 18 124/80 (95) 93 I/O 08/14/17 08/14/17 08/14/17 08/15/17 08/15/17 08/15/17 07:00 15:00 23:00 07:00 15:00 23:00 Intake Total 160 ml 700 ml 720 ml Output Total 500 ml Balance 160 ml 200 ml 720 ml Intake Oral 160 ml 700 ml 720 ml Output Stool Total 500 ml # Voids 1 3 1 1 # Bowel Movements 2 Result Diagram: 08/14/17 0440 Imaging No new Imaging studies. Procedures None Other Results Laboratory Tests Test 08/10/17 18:24 08/11/17 10:15 08/14/17 04:40 08/14/17 11:30 Stool C. difficile Toxin (PCR) NEGATIVE Stl C. difficile Toxin Epiderm 027 PRESUMPTIVE NEGATIVE Hemoglobin A1c 4.6 % Triglycerides Level 97 MG/DL Cholesterol Level 141 MG/DL LDL Cholesterol 83 MG/DL HDL Cholesterol 38.4 MG/DL Cholesterol/HDL Ratio 3.67 RATIO Blood Urea Nitrogen 5 MG/DL Creatinine 0.69 MG/DL Random Glucose 80 MG/DL Total Protein 6.8 GM/DL Albumin 3.1 GM/DL Calcium Level 9.1 MG/DL Alkaline Phosphatase 36 U/L Aspartate Amino Transf (AST/SGOT) 46 U/L Alanine Aminotransferase (ALT/SGPT) 45 U/L Total Bilirubin 1.0 MG/DL Direct Bilirubin 0.4 MG/DL Sodium Level 129 MEQ/L Potassium Level 3.4 MEQ/L Chloride Level 89 MEQ/L Carbon Dioxide Level 26.8 MEQ/L Anion Gap 13 MEQ/L Estimat Glomerular Filtration Rate 89 ML/MIN Indirect Bilirubin 0.6 MG/DL 25-Hydroxy Vitamin D Total 5.9 ng/ML Urine Osmolality 556 MOSM/KG Test 08/14/17 12:41 Serum Osmolality 268 MOSM/KG Objective Remarks GENERAL: This is a well-nourished, well-developed patient, in no apparent distress. SKIN: Warm and dry. Perianal area focal rash. HEAD: Normocephalic. EYES: Pupils equal round and reactive. Extraocular motions intact. No scleral icterus. No injection or drainage. ENT: Nose without bleeding. Throat without erythema. Uvula midline. Airway patent. NECK: Trachea midline. Supple. CARDIOVASCULAR: Regular rate and rhythm without murmurs, gallops, or rubs. RESPIRATORY: Clear to auscultation. Breath sounds equal bilaterally. No wheezes , rales, or rhonchi. GASTROINTESTINAL: Abdomen soft, non-tender, nondistended. Bowel sounds active 4. MUSCULOSKELETAL: Extremities without clubbing, cyanosis, trace BLE edema. Facial edema. NEUROLOGICAL: Awake and alert. Confuse. Pleasant. Oriented to person, self, place. Normal speech. Medications and IVs Current Medications Medications (Trade) Dose Ordered Sig/Barrera Route Start Time Stop Time Status Last Admin (Tylenol) 650 mg Q4H PRN PO 08/10/17 14:30 08/15/17 03:26 (Milk Of Magnesia Liq) 30 ml DAILY PRN PO 08/10/17 14:30 (Mag-Al Plus Susp Liq) 30 ml Q6H PRN PO 08/10/17 14:30 (Habitrol 21 Mg Patch.24 Hr) 1 patch DAILY T-DERMAL 08/10/17 14:30 (Romazicon Inj) 0.2 mg Q1M PRN IV PUSH 08/10/17 14:30 (Ativan) 1 mg Q4H PRN PO 08/10/17 14:30 08/14/17 06:35 (Ativan Inj) 1 mg Q4H PRN IV PUSH 08/10/17 14:30 (Ativan) 2 mg Q2H PRN PO 08/10/17 14:30 (Ativan Inj) 2 mg Q2H PRN IV PUSH 08/10/17 14:30 (Ativan Inj) 2 mg Q1H PRN IV PUSH 08/10/17 14:30 (Ativan Inj) 2 mg Q15M PRN IV PUSH 08/10/17 14:30 (Neurontin) 300 mg TID PO 08/10/17 18:00 08/14/17 17:23 (Keppra) 500 mg TID PO 08/10/17 18:00 08/14/17 17:23 (Synthroid) 112 mcg DAILY@0600 PO 08/11/17 06:00 08/15/17 06:20 (Lopressor) 100 mg BID PO 08/10/17 21:00 08/14/17 21:16 (Singulair) 10 mg HS PO 08/10/17 21:00 08/14/17 21:16 (Diovan) 160 mg DAILY PO 08/11/17 09:00 08/14/17 09:19 (Abilify) 5 mg DAILY PO 08/13/17 09:00 08/14/17 09:19 (Aricept) 5 mg DAILY PO 08/12/17 14:00 08/14/17 09:19 (Mycostatin Cream) 1 applic Q12HR TOPICAL 08/12/17 21:00 08/14/17 21:17 (Duoneb Neb) 1 ampule BID NEB NEB 08/13/17 10:45 08/16/17 10:44 08/14/17 19:16 (Lovenox Inj) 40 mg Q24H SQ 08/14/17 09:00 08/14/17 09:20 (Drisdol) 50,000 units Q7D PO 08/14/17 09:00 08/14/17 11:08 A/P Assessment and Plan Patient is a 52-year-old female with primary medical history of anxiety, seizures, asthma, hypothyroidism, hypertension who initially came in to the hospital brought in by EMS for confusion from rehabilitation center. Per review of records, patient was initially in rehabilitation for generalized weakness. CT and MRI of the brain was done, also EEG was done with no acute findings. Patient was noted to have urinary tract infection and placed on antibiotics. She was cleared from neurology and not discharged to inpatient medical psychiatry unit for further evaluation. Consulted for medical management. Psychosis, adjustment disorder - Management by psychiatry team Encephalopathy, metabolic Questioned Alcohol Dementia - Reports ETOH use prolonged, 1-4 shots vodka - Hyponatremia 133 - BUN 2, Lasix 40mg daily x 3 days - Recent urinary tract infection treated with Rocephin, ceftin 08/07-08/13 - Monitor BMP. Seizures, hx - Patient states last known seizure hospitalization was 2 years ago. But is unsure of recurrent seizures since she doesn't remember when it occurs, they just tell her. - Continue Keppra 500 mg 3 times a day - Previous EEG normal awake EEG. No evidence of focal or diffuse abnormality. - Seizure precaution HTN - Continue metoprolol 100 mg twice a day, valsartan 160 mg daily - Monitor BP trend Candidiasis - Continue nystatin cream Generalized Weakness, previous falls reported - PT eval and treat - Fall precaution Electrolyte derangement replaced and following. DVT prop early ambulation Discharge Planning Full Code. Attending Attestation patient, Nurse and Psychiatry specialist Doctor Maldonado Oliver MD Aug 15, 2017 08:05
[2017-08-15] MEDS: RESP: ALBUTEROL 2.5 MG/IPRATROPIUM 0.5 MG NEB (SCH) NEB ×2 (08:17→21:47)
[2017-08-15] MEDS: METOPROLOL TARTRATE 100 MG TAB PO SCH ×3 (08:30→21:03)
[2017-08-15] MEDS: DONEPEZIL HCL 5 MG TAB PO SCH (08:30)
[2017-08-15] MEDS: NICOTINE 21 MG/24 HR PATCH T-DERMAL SCH (08:31)
[2017-08-15] MEDS: ARIPiprazole 5 MG TAB PO SCH (08:31)
[2017-08-15] MEDS: ENOXAPARIN SODIUM 40 MG/0.4 ML SYRINGE SQ SCH (08:31)
[2017-08-15] MEDS: levETIRAcetam 500 MG TAB PO SCH ×3 (08:31→16:35)
[2017-08-15] MEDS: GABAPENTIN 300 MG CAP PO SCH ×3 (08:31→16:35)
[2017-08-15] MEDS: VALSARTAN 160 MG TAB PO SCH ×2 (08:31→09:00)
[2017-08-15] MEDS: NYSTATIN 100,000 UNIT/GM CREAM 15 GM TOPICAL SCH ×2 (08:32→21:00)
--- NOTE | 2017-08-15 10:11 | HHI.PYPN ---
Subjective Remarks Patient seen for follow-up, chart reviewed. Patient found lying in hospital bed , cooperative interview. After discussion with nursing staff patient has not been eating her meals throughout the weekend. Patient states that she is feeling a bit sad because she wants to go home, but denies any SI or HI. Patient states that she has been eating and drinking. Patient advised to keep up her nutrition which she agreed to. Patient reports having difficulty sleeping last evening. She also mentions that she had a dinner alliance party along with her and nursing staff last evening. Patient is alert and oriented only to person. When asked if patient has been able to ambulate she says that she will although previously had been reporting difficulty standing despite noticing her being able to move her legs around in the bed. Patient this time denies SI, HI, or perceptual disturbances. Review of Systems Except as stated in HPI: all other systems reviewed are Neg Objective Alert: Yes [place]: Person Mood: Calm Affect: Appropriate Memory Intact: Comment (impaired) Hallucinations: Other (she denies) Delusions: No Delusion Type: Other (not elicited) Suicidal: Ideation (no SI) Homicidal: Ideation (no HI) Insight/Judgment Poor insight, fair impulse control and limited judgment Labs Labs reviewed. Test 08/14/17 11:30 08/14/17 12:41 Urine Osmolality 556 MOSM/KG Serum Osmolality 268 MOSM/KG Vitals/IOs Vital Signs Date Time Temp Pulse Resp B/P (MAP) Pulse Ox O2 Delivery O2 Flow Rate FiO2 08/15/17 05:35 98.2 86 16 107/58 (85) 94 Assessment & Plan Problem List: (1) Unspecified psychosis ICD Codes: F29 - Unspecified psychosis not due to a substance or known physiological condition Assessment & Plan Patient continues to what appears to be confabulation, impaired memory, disoriented (alert and oriented only to person), was reported lower extremity weakness. Patient does not seem to be internally preoccupied nor does she endorse any perceptual disturbances and although she appears to be confabulating as noted to have organized thought process. Will continue current treatment for now. Recommendations as per primary medical team. Workup will continue to find organic etiology for current presentation. Discharge planning in progress Justification for Cont. Inpt. At risk for further decompensation if at lower level of care Dustin Perales MD Aug 15, 2017 10:11
[2017-08-15 13:04] LABS: MEAN CELL VOLUME 97.3 FL (80.0-100.0); MEAN CORPUSCULAR HEMOGLOBIN 33.3 PG (27.0-34.0); MEAN CORPUSCULAR HGB CONC 34.2 % (32.0-36.0); PLATELET COUNT 200 TH/MM3 (150-450); RED CELL DISTRIBUTION WIDTH 14.3 % (11.6-17.2); REVIEW FLAG FINAL; WHITE BLOOD COUNT 6.2 TH/MM3 (4.0-11.0)
[2017-08-15 13:07] LABS: BICARBONATE 25.4 MEQ/L (21.0-32.0); POTASSIUM 3.6 MEQ/L (3.5-5.1)
[2017-08-15] MEDS ORDERED: POTASSIUM CHLORIDE 20 MEQ CONTROLLED RELEASE TAB PO ONE (15:15)
[2017-08-15 20:05] VITALS: BP 111/64; PULSE 102; RESP 17; TEMP 97; O2SAT 96
[2017-08-15] MEDS: MONTELUKAST SODIUM 10 MG TAB PO SCH (21:03)
[2017-08-16 06:00] VITALS: BP 100/51; PULSE 85; RESP 16; TEMP 98; O2SAT 95
[2017-08-16] MEDS: LEVOTHYROXINE SODIUM 112 MCG TAB PO SCH (06:30)
[2017-08-16] MEDS: RESP: ALBUTEROL 2.5 MG/IPRATROPIUM 0.5 MG NEB (SCH) NEB (08:31)
[2017-08-16] MEDS: VALSARTAN 160 MG TAB PO SCH (09:00)
[2017-08-16] MEDS: NICOTINE 21 MG/24 HR PATCH T-DERMAL SCH (09:00)
[2017-08-16 09:56] VITALS: BP 114/79; PULSE 107
[2017-08-16] MEDS: DONEPEZIL HCL 5 MG TAB PO SCH (10:57)
[2017-08-16] MEDS: levETIRAcetam 500 MG TAB PO SCH ×3 (10:57→18:00)
[2017-08-16] MEDS: ARIPiprazole 5 MG TAB PO SCH (10:57)
[2017-08-16] MEDS: METOPROLOL TARTRATE 100 MG TAB PO SCH ×2 (10:57→21:56)
[2017-08-16] MEDS: GABAPENTIN 300 MG CAP PO SCH ×3 (10:57→18:00)
[2017-08-16] MEDS: ENOXAPARIN SODIUM 40 MG/0.4 ML SYRINGE SQ SCH (10:58)
[2017-08-16] MEDS: NYSTATIN 100,000 UNIT/GM CREAM 15 GM TOPICAL SCH ×2 (10:59→21:56)
[2017-08-16 11:59] LABS: BICARBONATE 21.2 MEQ/L (21.0-32.0); MAGNESIUM 1.2 MG/DL (1.5-2.5); POTASSIUM 3.9 MEQ/L (3.5-5.1)
[2017-08-16] MEDS: MAGNESIUM SULFATE 1 GM PREMIX 100 ML IV SCH ×2 (14:02→14:56)
[2017-08-16] MEDS: SODIUM CHLORIDE 1 GRAM TAB PO SCH ×2 (14:02→18:00)
--- NOTE | 2017-08-16 14:02 | HHI.PR ---
Subjective Remarks This is a pleasant 52 y/o Female with Anxiety disorder, Seizure disorder, Asthma , Hypothyroidism, Hypertension, initially came in to the hospital brought in by EMS for confusion from rehabilitation center. Per review of records, patient was initially in rehabilitation for generalized weakness. CT and MRI of the brain was done, also EEG was done with no acute findings. Patient was noted to have urinary tract infection and placed on antibiotics. She was cleared from neurology and not discharged to inpatient medical psychiatry unit for further evaluation. she complaint of generalized weakness and recurrent falls, Notable periods of confusion. 08/15: Stable seen in her bedroom in the presence of nurse also with Psychiatry specialist doctor Dustin Perales, encourage ambulation, replacing Electrolytes. at this time no complaint. 08/16: Seen in her bedroom in the presence of Nurse Miss Gonsales complaint of chest pain, asked for EKG, Cardiac enzymes stat, has Sodium today worsening in 123, started on Sodium Tablets, Urine Potassium and sodium, replaced magnesium today and continue Mag Ox. Objective Vital Signs Date Time Temp Pulse Resp B/P (MAP) Pulse Ox O2 Delivery O2 Flow Rate FiO2 08/16/17 09:56 107 114/79 (91) 08/16/17 06:00 98.0 85 16 100/51 (67) 95 08/15/17 20:05 97.0 102 17 111/64 (80) 96 I/O 08/15/17 08/15/17 08/15/17 08/16/17 08/16/17 08/16/17 07:00 15:00 23:00 07:00 15:00 23:00 Intake Total 480 ml 120 ml Balance 480 ml 120 ml Intake Oral 480 ml 120 ml # Voids 1 1 1 Result Diagram: 08/15/17 1205 08/16/[address] brain no acute changes. some chronic vascular changes. Procedures None Other Results Laboratory Tests Test 08/10/17 18:24 08/11/17 10:15 08/14/17 04:40 08/14/17 11:30 Stool C. difficile Toxin (PCR) NEGATIVE Stl C. difficile Toxin Epiderm 027 PRESUMPTIVE NEGATIVE Hemoglobin A1c 4.6 % Triglycerides Level 97 MG/DL Cholesterol Level 141 MG/DL LDL Cholesterol 83 MG/DL HDL Cholesterol 38.4 MG/DL Cholesterol/HDL Ratio 3.67 RATIO Blood Urea Nitrogen 5 MG/DL Creatinine 0.69 MG/DL Random Glucose 80 MG/DL Total Protein 6.8 GM/DL Albumin 3.1 GM/DL Calcium Level 9.1 MG/DL Alkaline Phosphatase 36 U/L Aspartate Amino Transf (AST/SGOT) 46 U/L Alanine Aminotransferase (ALT/SGPT) 45 U/L Total Bilirubin 1.0 MG/DL Direct Bilirubin 0.4 MG/DL Sodium Level 129 MEQ/L Potassium Level 3.4 MEQ/L Chloride Level 89 MEQ/L Carbon Dioxide Level 26.8 MEQ/L Indirect Bilirubin 0.6 MG/DL 25-Hydroxy Vitamin D Total 5.9 ng/ML Urine Osmolality 556 MOSM/KG Test 08/14/17 12:41 08/15/17 12:05 08/16/17 10:52 Serum Osmolality 268 MOSM/KG White Blood Count 6.2 TH/MM3 Red Blood Count 3.70 MIL/MM3 Hemoglobin 12.3 GM/DL Hematocrit 36.0 % Mean Corpuscular Volume 97.3 FL Mean Corpuscular Hemoglobin 33.3 PG Mean Corpuscular Hemoglobin Concent 34.2 % Red Cell Distribution Width 14.3 % Platelet Count 200 TH/MM3 Mean Platelet Volume 10.9 FL Blood Urea Nitrogen 7 MG/DL Creatinine 0.56 MG/DL Random Glucose 103 MG/DL Calcium Level 9.4 MG/DL Phosphorus Level 2.6 MG/DL Magnesium Level 1.2 MG/DL Sodium Level 123 MEQ/L Potassium Level 3.9 MEQ/L Chloride Level 89 MEQ/L Carbon Dioxide Level 21.2 MEQ/L Anion Gap 13 MEQ/L Estimat Glomerular Filtration Rate 113 ML/MIN Objective Remarks GENERAL: Obesity, no acute distress. SKIN: Warm and dry. Perianal area focal rash. HEAD: Normocephalic. EYES: Pupils equal round and reactive. Extraocular motions intact. No scleral icterus. No injection or drainage. ENT: Nose without bleeding. Throat without erythema. Uvula midline. Airway patent. NECK: Trachea midline. Supple. CARDIOVASCULAR: Regular rate and rhythm without murmurs, gallops, or rubs. RESPIRATORY: Clear to auscultation. Breath sounds equal bilaterally. No wheezes , rales, or rhonchi. GASTROINTESTINAL: Abdomen soft, non-tender, nondistended. Bowel sounds active 4. MUSCULOSKELETAL: Extremities without clubbing, cyanosis, trace BLE edema. Facial edema. NEUROLOGICAL: Awake and alert. Confuse. Pleasant. Oriented to person, self, place. Normal speech. Medications and IVs Current Medications Medications (Trade) Dose Ordered Sig/Barrera Route Start Time Stop Time Status Last Admin (Tylenol) 650 mg Q4H PRN PO 08/10/17 14:30 08/15/17 03:26 (Milk Of Magnesia Liq) 30 ml DAILY PRN PO 08/10/17 14:30 (Mag-Al Plus Susp Liq) 30 ml Q6H PRN PO 08/10/17 14:30 (Habitrol 21 Mg Patch.24 Hr) 1 patch DAILY T-DERMAL 08/10/17 14:30 (Romazicon Inj) 0.2 mg Q1M PRN IV PUSH 08/10/17 14:30 (Ativan) 1 mg Q4H PRN PO 08/10/17 14:30 08/14/17 06:35 (Ativan Inj) 1 mg Q4H PRN IV PUSH 08/10/17 14:30 (Ativan) 2 mg Q2H PRN PO 08/10/17 14:30 (Ativan Inj) 2 mg Q2H PRN IV PUSH 08/10/17 14:30 (Ativan Inj) 2 mg Q1H PRN IV PUSH 08/10/17 14:30 (Ativan Inj) 2 mg Q15M PRN IV PUSH 08/10/17 14:30 (Neurontin) 300 mg TID PO 08/10/17 18:00 08/16/17 10:57 (Keppra) 500 mg TID PO 08/10/17 18:00 08/16/17 10:57 (Synthroid) 112 mcg DAILY@0600 PO 08/11/17 06:00 08/16/17 06:30 (Lopressor) 100 mg BID PO 08/10/17 21:00 08/16/17 10:57 (Singulair) 10 mg HS PO 08/10/17 21:00 08/15/17 21:03 (Diovan) 160 mg DAILY PO 08/11/17 09:00 08/14/17 09:19 (Abilify) 5 mg DAILY PO 08/13/17 09:00 08/16/17 10:57 (Aricept) 5 mg DAILY PO 08/12/17 14:00 08/16/17 10:57 (Mycostatin Cream) 1 applic Q12HR TOPICAL 08/12/17 21:00 08/16/17 10:59 (Lovenox Inj) 40 mg Q24H SQ 08/14/17 09:00 08/16/17 10:58 (Drisdol) 50,000 units Q7D PO 08/14/17 09:00 08/14/17 11:08 Magnesium Sulfate/ Dextrose 100 ml @ 100 mls/hr Q1H IV 08/16/17 12:45 08/16/17 14:44 (Sodium Chloride) 1 gm TID PO 08/16/17 13:00 (Mag-Ox) 400 mg Q12HR PO 08/16/17 21:00 A/P Assessment and Plan Patient is a 52-year-old female with primary medical history of anxiety, seizures, asthma, hypothyroidism, hypertension who initially came in to the hospital brought in by EMS for confusion from rehabilitation center. Per review of records, patient was initially in rehabilitation for generalized weakness. CT and MRI of the brain was done, also EEG was done with no acute findings. Patient was noted to have urinary tract infection and placed on antibiotics. She was cleared from neurology and not discharged to inpatient medical psychiatry unit for further evaluation. Consulted for medical management. Psychosis, adjustment disorder - Management by psychiatry team Encephalopathy, Improving. Questioned Alcohol Dementia - Reports ETOH use prolonged, 1-4 shots vodka - Hyponatremia worsening asked for Urinary electrolytes, started on Sodium tablets and following. - following with BMP, mag level replaced today. Seizures, hx - Patient states last known seizure hospitalization was 2 years ago. But is unsure of recurrent seizures since she doesn't remember when it occurs, they just tell her. - Continue Keppra 500 mg 3 times a day - Previous EEG normal awake EEG. No evidence of focal or diffuse abnormality. - Seizure precaution HTN - Continue metoprolol 100 mg twice a day, valsartan 160 mg daily - Monitor BP trend Candidiasis - Continue nystatin cream Atypical Chest pain asked for EKG and Cardiac enzymes. Generalized Weakness, previous falls reported - PT eval and treat - Fall precaution Electrolyte derangement replaced and following. DVT prop early ambulation Discharge Planning Full Code. Maldonado Rebollar MD Aug 16, 2017 2:01 pm
[2017-08-16 15:07] LABS: CREATINE KINASE 36 U/L (26-192)
--- NOTE | 2017-08-16 16:19 | HHI.PYPN ---
Subjective Remarks Patient seen for follow-up, chart reviewed. Patient found sitting on hospital bed, states that she has been eating but as per nursing staff patient has been eating 10% of her meals. Patient also reports having walked around in her room but when asked to stand she states that she can't at this time but noted to move herself up the bed with aid from her legs. Patient continues to confabulate stating having arrived today to the hospital and having went to a psychiatrists home and came back. Patient alert and oriented to person only. Denies any mood, manic or psychotic symptoms at this time. Treatment team met with patient's which patient's medical management and progress was overviewed with him. Review of Systems Except as stated in HPI: all other systems reviewed are Neg Objective Alert: Yes [place]: Person Mood: Calm Affect: Appropriate Memory Intact: Comment (impaired) Hallucinations: Other (she denies) Delusions: No Delusion Type: Other (not elicited) Suicidal: Ideation (no SI) Homicidal: Ideation (no HI) Insight/Judgment poor insight, fair impulse control and limited judgment Labs labs reviewed. Test 08/16/17 10:52 08/16/17 13:20 08/16/17 14:15 Blood Urea Nitrogen 7 MG/DL Creatinine 0.56 MG/DL Random Glucose 103 MG/DL Calcium Level 9.4 MG/DL Phosphorus Level 2.6 MG/DL Magnesium Level 1.2 MG/DL Sodium Level 123 MEQ/L Potassium Level 3.9 MEQ/L Chloride Level 89 MEQ/L Carbon Dioxide Level 21.2 MEQ/L Anion Gap 13 MEQ/L Estimat Glomerular Filtration Rate 113 ML/MIN Urine Random Sodium 21 MEQ/L Urine Random Potassium 61 MEQ/L Total Creatine Kinase 36 U/L Troponin I LESS THAN 0.02 NG/ML Vitals/IOs Vital Signs Date Time Temp Pulse Resp B/P (MAP) Pulse Ox O2 Delivery O2 Flow Rate FiO2 08/16/17 09:56 107 114/79 (91) 08/16/17 06:00 98.0 16 95 Intake and Output 08/16/17 08/16/17 08/17/17 08:00 16:00 00:00 Intake Total 300 ml Balance 300 ml Assessment & Plan Problem List: (1) Unspecified psychosis ICD Codes: F29 - Unspecified psychosis not due to a substance or known physiological condition Assessment & Plan Patient continues to be confused, confabulating, A&O to person only. Patient with noted electrolyte imbalances which medical team is managing. Will order neuropsychological consult to assess cognition. Continue current treatment. Discharge planning in progress. Justification for Cont. Inpt. At risk for further decompensation if at lower level of care. Dustin Perales MD Aug 16, 2017 16:19
[2017-08-16 17:32] VITALS: BP 111/59; PULSE 75; RESP 16; TEMP 97.8; O2SAT 95
[2017-08-16] MEDS: MONTELUKAST SODIUM 10 MG TAB PO SCH (21:56)
[2017-08-16] MEDS: MAGNESIUM OXIDE 400 MG TAB PO SCH (21:56)
[2017-08-17 05:14] VITALS: BP 99/54; PULSE 80; RESP 17; TEMP 97.4; O2SAT 95
[2017-08-17] MEDS: LEVOTHYROXINE SODIUM 112 MCG TAB PO SCH (05:47)
[2017-08-17 07:20] LABS: BICARBONATE 25.4 MEQ/L (21.0-32.0); MAGNESIUM 1.9 MG/DL (1.5-2.5); POTASSIUM 3.7 MEQ/L (3.5-5.1)
[2017-08-17] MEDS: METOPROLOL TARTRATE 100 MG TAB PO SCH ×2 (08:15→21:00)
[2017-08-17] MEDS: VALSARTAN 160 MG TAB PO SCH (08:16)
[2017-08-17] MEDS: NICOTINE 21 MG/24 HR PATCH T-DERMAL SCH (08:17)
[2017-08-17] MEDS: GABAPENTIN 300 MG CAP PO SCH ×3 (08:27→16:40)
[2017-08-17] MEDS: DONEPEZIL HCL 5 MG TAB PO SCH (08:27)
[2017-08-17] MEDS: SODIUM CHLORIDE 1 GRAM TAB PO SCH ×4 (08:27→21:10)
[2017-08-17] MEDS: MAGNESIUM OXIDE 400 MG TAB PO SCH ×2 (08:27→21:09)
[2017-08-17] MEDS: levETIRAcetam 500 MG TAB PO SCH ×3 (08:27→16:40)
[2017-08-17] MEDS: ARIPiprazole 5 MG TAB PO SCH (08:27)
[2017-08-17] MEDS: ENOXAPARIN SODIUM 40 MG/0.4 ML SYRINGE SQ SCH (08:28)
[2017-08-17] MEDS: NYSTATIN 100,000 UNIT/GM CREAM 15 GM TOPICAL SCH ×2 (08:28→21:09)
--- NOTE | 2017-08-17 12:26 | HHI.PR ---
Subjective Remarks This is a pleasant 52 y/o Female with Anxiety disorder, Seizure disorder, Asthma , Hypothyroidism, Hypertension, initially came in to the hospital brought in by EMS for confusion from rehabilitation center. Per review of records, patient was initially in rehabilitation for generalized weakness. CT and MRI of the brain was done, also EEG was done with no acute findings. Patient was noted to have urinary tract infection and placed on antibiotics. She was cleared from neurology and not discharged to inpatient medical psychiatry unit for further evaluation. she complaint of generalized weakness and recurrent falls, Notable periods of confusion. 08/15: Stable seen in her bedroom in the presence of nurse also with Psychiatry specialist doctor Dustin Perales, encourage ambulation, replacing Electrolytes. at this time no complaint. 08/16: Seen in her bedroom in the presence of Nurse Ilda complaint of chest pain, asked for EKG, Cardiac enzymes stat, has Sodium today worsening in 123, started on Sodium Tablets, Urine Potassium and sodium, replaced magnesium today and continue Mag Ox. 08/17: Seen in her bedroom, stable, no new issues, improving sodium tablets will decrease to two tablets daily, encourage ambulation. Objective Vital Signs Date Time Temp Pulse Resp B/P (MAP) Pulse Ox O2 Delivery O2 Flow Rate FiO2 08/17/17 05:14 97.4 80 17 99/54 (69) 95 08/16/17 17:32 97.8 75 16 111/59 (76) 95 I/O 08/16/17 08/16/17 08/16/17 08/17/17 08/17/17 08/17/17 07:00 15:00 23:00 07:00 15:00 23:00 Intake Total 300 ml 240 ml 120 ml Output Total 1 ml Balance 300 ml 239 ml 120 ml Intake Oral 300 ml 240 ml 120 ml Output Stool Total 1 ml # Voids 1 1 2 Result Diagram: 08/15/17 1205 08/17/17 0640 Imaging NO new imaging studies. Procedures None Other Results Laboratory Tests Test 08/10/17 18:24 08/11/17 10:15 08/14/17 04:40 08/14/17 11:30 Stool C. difficile Toxin (PCR) NEGATIVE Stl C. difficile Toxin Epiderm 027 PRESUMPTIVE NEGATIVE Hemoglobin A1c 4.6 % Triglycerides Level 97 MG/DL Cholesterol Level 141 MG/DL LDL Cholesterol 83 MG/DL HDL Cholesterol 38.4 MG/DL Cholesterol/HDL Ratio 3.67 RATIO Blood Urea Nitrogen 5 MG/DL Creatinine 0.69 MG/DL Random Glucose 80 MG/DL Total Protein 6.8 GM/DL Albumin 3.1 GM/DL Calcium Level 9.1 MG/DL Alkaline Phosphatase 36 U/L Aspartate Amino Transf (AST/SGOT) 46 U/L Alanine Aminotransferase (ALT/SGPT) 45 U/L Total Bilirubin 1.0 MG/DL Direct Bilirubin 0.4 MG/DL Sodium Level 129 MEQ/L Potassium Level 3.4 MEQ/L Chloride Level 89 MEQ/L Carbon Dioxide Level 26.8 MEQ/L Indirect Bilirubin 0.6 MG/DL 25-Hydroxy Vitamin D Total 5.9 ng/ML Urine Osmolality 556 MOSM/KG Test 08/14/17 12:41 08/15/17 12:05 08/16/17 10:52 08/16/17 13:20 Serum Osmolality 268 MOSM/KG White Blood Count 6.2 TH/MM3 Red Blood Count 3.70 MIL/MM3 Hemoglobin 12.3 GM/DL Hematocrit 36.0 % Mean Corpuscular Volume 97.3 FL Mean Corpuscular Hemoglobin 33.3 PG Mean Corpuscular Hemoglobin Concent 34.2 % Red Cell Distribution Width 14.3 % Platelet Count 200 TH/MM3 Mean Platelet Volume 10.9 FL Blood Urea Nitrogen 7 MG/DL Creatinine 0.56 MG/DL Random Glucose 103 MG/DL Calcium Level 9.4 MG/DL Phosphorus Level 2.6 MG/DL Magnesium Level 1.2 MG/DL Sodium Level 123 MEQ/L Potassium Level 3.9 MEQ/L Chloride Level 89 MEQ/L Carbon Dioxide Level 21.2 MEQ/L Urine Random Sodium 21 MEQ/L Urine Random Potassium 61 MEQ/L Test 08/16/17 14:15 08/17/17 06:40 Total Creatine Kinase 36 U/L Troponin I LESS THAN 0.02 NG/ML Blood Urea Nitrogen 5 MG/DL Creatinine 0.48 MG/DL Random Glucose 86 MG/DL Calcium Level 9.0 MG/DL Magnesium Level 1.9 MG/DL Sodium Level 127 MEQ/L Potassium Level 3.7 MEQ/L Chloride Level 92 MEQ/L Carbon Dioxide Level 25.4 MEQ/L Anion Gap 10 MEQ/L Estimat Glomerular Filtration Rate 135 ML/MIN Objective Remarks GENERAL: Obesity, no acute distress. SKIN: Warm and dry. Perianal area focal rash. HEAD: Normocephalic. EYES: Pupils equal round and reactive. Extraocular motions intact. No scleral icterus. No injection or drainage. ENT: Nose without bleeding. Throat without erythema. Uvula midline. Airway patent. NECK: Trachea midline. Supple. CARDIOVASCULAR: Regular rate and rhythm without murmurs, gallops, or rubs. RESPIRATORY: Clear to auscultation. Breath sounds equal bilaterally. No wheezes , rales, or rhonchi. GASTROINTESTINAL: Abdomen soft, non-tender, nondistended. Bowel sounds active 4. MUSCULOSKELETAL: Extremities without clubbing, cyanosis, trace BLE edema. Facial edema. NEUROLOGICAL: Awake and alert. Confuse. Pleasant. Oriented to person, self, place. Normal speech. Medications and IVs Current Medications Medications (Trade) Dose Ordered Sig/Barrera Route Start Time Stop Time Status Last Admin (Tylenol) 650 mg Q4H PRN PO 08/10/17 14:30 08/15/17 03:26 (Milk Of Magnesia Liq) 30 ml DAILY PRN PO 08/10/17 14:30 (Mag-Al Plus Susp Liq) 30 ml Q6H PRN PO 08/10/17 14:30 (Habitrol 21 Mg Patch.24 Hr) 1 patch DAILY T-DERMAL 08/10/17 14:30 (Romazicon Inj) 0.2 mg Q1M PRN IV PUSH 08/10/17 14:30 (Ativan) 1 mg Q4H PRN PO 08/10/17 14:30 08/14/17 06:35 (Ativan Inj) 1 mg Q4H PRN IV PUSH 08/10/17 14:30 (Ativan) 2 mg Q2H PRN PO 08/10/17 14:30 (Ativan Inj) 2 mg Q2H PRN IV PUSH 08/10/17 14:30 (Ativan Inj) 2 mg Q1H PRN IV PUSH 08/10/17 14:30 (Ativan Inj) 2 mg Q15M PRN IV PUSH 08/10/17 14:30 (Neurontin) 300 mg TID PO 08/10/17 18:00 08/17/17 11:56 (Keppra) 500 mg TID PO 08/10/17 18:00 08/17/17 11:56 (Synthroid) 112 mcg DAILY@0600 PO 08/11/17 06:00 08/17/17 05:47 (Lopressor) 100 mg BID PO 08/10/17 21:00 08/16/17 21:56 (Singulair) 10 mg HS PO 08/10/17 21:00 08/16/17 21:56 (Diovan) 160 mg DAILY PO 08/11/17 09:00 08/14/17 09:19 (Abilify) 5 mg DAILY PO 08/13/17 09:00 08/17/17 08:27 (Aricept) 5 mg DAILY PO 08/12/17 14:00 08/17/17 08:27 (Mycostatin Cream) 1 applic Q12HR TOPICAL 08/12/17 21:00 08/17/17 08:28 (Lovenox Inj) 40 mg Q24H SQ 08/14/17 09:00 08/17/17 08:28 (Drisdol) 50,000 units Q7D PO 08/14/17 09:00 08/14/17 11:08 (Sodium Chloride) 1 gm TID PO 08/16/17 13:00 08/17/17 11:56 (Mag-Ox) 400 mg Q12HR PO 08/16/17 21:00 08/17/17 08:27 A/P Assessment and Plan Patient is a 52-year-old female with primary medical history of anxiety, seizures, asthma, hypothyroidism, hypertension who initially came in to the hospital brought in by EMS for confusion from rehabilitation center. Per review of records, patient was initially in rehabilitation for generalized weakness. CT and MRI of the brain was done, also EEG was done with no acute findings. Patient was noted to have urinary tract infection and placed on antibiotics. She was cleared from neurology and not discharged to inpatient medical psychiatry unit for further evaluation. Consulted for medical management. Psychosis, adjustment disorder - Management by psychiatry team Encephalopathy, Improved Questioned Alcohol Dementia - Reports ETOH use prolonged, 1-4 shots vodka - Hyponatremia worsening asked for Urinary electrolytes, started on Sodium tablets and following. Improving hyponatremia will continue Sodium tablets. Seizures, hx - Patient states last known seizure hospitalization was 2 years ago. But is unsure of recurrent seizures since she doesn't remember when it occurs, they just tell her. - Continue Keppra 500 mg 3 times a day - Previous EEG normal awake EEG. No evidence of focal or diffuse abnormality. - Seizure precaution HTN - Continue metoprolol 100 mg twice a day, Valsartan decreased dose to 80 mg daily. placed parameters will need to continue titration. Candidiasis - Continue nystatin cream Atypical Chest pain asked for EKG and Cardiac enzymes. Generalized Weakness, previous falls reported - PT eval and treat - Fall precaution the patient is stable improving Hyponatremia continue sodium tablets. Hyponatremia related to her Liver Cirrhosis. will need to stop drinking alcohol to improve her condition. for now I will sign off call as needed. DVT prop early ambulation Discharge Planning Full Code. Maldonado Rebollar MD Aug 17, 2017 12:26
[2017-08-17] MEDS ORDERED: POTASSIUM CHLORIDE 20 MEQ CONTROLLED RELEASE TAB PO ONE (12:30)
--- NOTE | 2017-08-17 14:29 | EKG ---
Date Performed: 08/16/2017 Time Performed: 13:25:28 PTAGE: 52 years EKG: Sinus rhythm BORDERLINE LEFT AXIS DEVIATION NONSPECIFIC T WAVE ABNORMALITY BORDERLINE ECG PREVIOUS TRACING : 08/06/2017 15.18 DOCTOR: Wade Aleman Interpretating Date/Time 08/17/2017 14:27:53
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
[2017-08-17 19:26] VITALS: BP 107/70; PULSE 91; RESP 15; TEMP 97.6; O2SAT 97
[2017-08-17] MEDS: REMOVE OLD NICODERM (NICOTINE) PATCH T-DERMAL SCH (21:00)
[2017-08-17] MEDS: MONTELUKAST SODIUM 10 MG TAB PO SCH (21:12)
[2017-08-18 03:35] VITALS: BP 100/69; PULSE 92; RESP 16; TEMP 97.5; O2SAT 96
[2017-08-18 07:50] VITALS: BP 106/70; PULSE 120
--- NOTE | 2017-08-18 08:26 | HHI.PR ---
Subjective Remarks Patient does not want to take a shower states that she was swimming yesterday and she already took a shower in the afternoon. Continues to be delirious. As per staff, patient has not taken a shower for a week. Appears very upset. Objective Vitals Vital Signs Date Time Temp Pulse Resp B/P (MAP) Pulse Ox O2 Delivery O2 Flow Rate FiO2 08/18/17 03:35 97.5 92 16 100/69 (79) 96 08/17/17 19:26 97.6 91 15 107/70 (82) 97 I/O 08/17/17 08/17/17 08/17/17 08/18/17 08/18/17 08/18/17 07:00 15:00 23:00 07:00 15:00 23:00 Intake Total 240 ml 480 ml 60 ml Output Total 1 ml Balance 239 ml 480 ml 60 ml Intake Oral 240 ml 480 ml 60 ml Output Stool Total 1 ml # Voids 2 0 1 # Bowel Movements 2 Result Diagram: 08/15/17 1205 08/17/17 0640 Objective Remarks GENERAL: This is a well-nourished, well-developed patient, in no apparent distress. SKIN: Warm and dry. Perianal area focal rash. HEAD: Normocephalic. EYES: Pupils equal round and reactive. Extraocular motions intact. No scleral icterus. No injection or drainage. ENT: Nose without bleeding. Throat without erythema. Uvula midline. Airway patent. NECK: Trachea midline. Supple. CARDIOVASCULAR: Regular rate and rhythm without murmurs, gallops, or rubs. RESPIRATORY: Clear to auscultation. Breath sounds equal bilaterally. No wheezes , rales, or rhonchi. GASTROINTESTINAL: Abdomen soft, non-tender, nondistended. Bowel sounds active 4. MUSCULOSKELETAL: Extremities without clubbing, cyanosis, trace BLE edema - improved. NEUROLOGICAL: Awake and alert. Confuse. Pleasant. Oriented to person. Normal speech. A/P Problem List: (1) Unspecified psychosis ICD Code: F29 - Unspecified psychosis not due to a substance or known physiological condition (2) Adjustment disorder with anxiety ICD Code: F43.22 - Adjustment disorder with anxiety (3) Hypothyroid ICD Code: E03.9 - Hypothyroid Status: Chronic (4) HTN (hypertension) ICD Code: I10 - HTN (hypertension) Status: Chronic (5) Seizure ICD Code: R56.9 - Unspecified convulsions Status: Chronic (6) Hyponatremia ICD Code: E87.1 - Hypo-osmolality and hyponatremia Assessment and Plan Patient is a 52-year-old female with primary medical history of anxiety, seizures, asthma, hypothyroidism, hypertension who initially came in to the hospital brought in by EMS for confusion from rehabilitation center. Per review of records, patient was initially in rehabilitation for generalized weakness. CT and MRI of the brain was done, also EEG was done with no acute findings. Patient was noted to have urinary tract infection and placed on antibiotics. She was cleared from neurology and not discharged to inpatient medical psychiatry unit for further evaluation. Consulted for medical management. Psychosis, adjustment disorder - Management by psychiatry team Encephalopathy, metabolic ? Alcohol Dementia Confusion, delirium - Patient has been worked up in the inpatient setting. EEG, MRI, CSF cultures have all been negative. - Reports ETOH use prolonged, 1-4 shots vodka - Recent urinary tract infection treated with Rocephin, Ceftin 08/07-08/13 - Speech for cognitive evaluation. [id number] cognitive deficits. Benefits from speech cognitive services. Will need ST services when discharge. - Hyponatremia improving with sodium tabs. Seizures, hx - Patient states last known seizure hospitalization was 2 years ago. But is unsure of recurrent seizures since she doesn't remember when it occurs, they just tell her. - Continue Keppra 500 mg 3 times a day - Previous EEG normal awake EEG. No evidence of focal or diffuse abnormality. - Seizure precaution HTN - Continue metoprolol 100 mg twice a day, valsartan 160 mg daily - Monitor BP trend Candidiasis - Nystatin cream - Pericare daily Generalized Weakness, previous falls reported - PT eval and treat - Fall precaution Vitamin D deficiency - Start vitamin D supplementation 50,000 every weekly - Recheck vitamin D in 3 months as an outpatient DVT prop Lovenox Discussed with patient, nursing, Dr. Rohit Patterson from Hospitalist standpoint. We will sign off. Reconsult as needed. Medically clear to DC to regular psych unit, [facility] or SNF Discharge Planning Will need speech cognitive therapy and PT when discharge. Will benefit [facility] or SNF placement. Herson Sheffield Aug 18, 2017 08:26
[2017-08-18] MEDS: NICOTINE 21 MG/24 HR PATCH T-DERMAL SCH (09:00)
[2017-08-18] MEDS: METOPROLOL TARTRATE 100 MG TAB PO SCH ×2 (09:00→20:56)
[2017-08-18] MEDS: VALSARTAN 80 MG TAB PO SCH (09:00)
[2017-08-18] MEDS: DONEPEZIL HCL 5 MG TAB PO SCH (09:43)
[2017-08-18] MEDS: LEVOTHYROXINE SODIUM 112 MCG TAB PO SCH (09:43)
[2017-08-18] MEDS: GABAPENTIN 300 MG CAP PO SCH ×3 (09:43→18:00)
[2017-08-18] MEDS: SODIUM CHLORIDE 1 GRAM TAB PO SCH ×2 (09:44→20:55)
[2017-08-18] MEDS: ARIPiprazole 5 MG TAB PO SCH (09:44)
[2017-08-18] MEDS: ENOXAPARIN SODIUM 40 MG/0.4 ML SYRINGE SQ SCH (09:44)
[2017-08-18] MEDS: levETIRAcetam 500 MG TAB PO SCH ×3 (09:44→18:00)
[2017-08-18] MEDS: MAGNESIUM OXIDE 400 MG TAB PO SCH ×2 (09:45→20:54)
[2017-08-18] MEDS: NYSTATIN 100,000 UNIT/GM CREAM 15 GM TOPICAL SCH ×2 (09:46→20:57)
--- NOTE | 2017-08-18 11:28 | HHI.PYPN ---
Subjective Remarks Patient seen for follow-up, chart reviewed. Patient was seen prior to mental health court which she states that she had gone swimming the day before and her had brought her clothes and her make up bag which she was upset was not in the hospital. She reports having had showered and eaten breakfast which was not true. She states that she has been able to ambulate herself to the bathroom but when asked to stand up she could not maintain her self to stand up. Patient was present during court hearing and resulted in a continuance. Review of Systems Except as stated in HPI: all other systems reviewed are Neg Mental Status Examination Consciousness: Alert Appearance: Inappropriate (disheveled, poor hygiene) Speech: Unremarkable Orientation: Person Memory: Impaired (describe) (impaired in all 3 spheres) Thought Content: Other (confabulation) Language: Other (fluent and spontaneous) Fund of Knowledge: Average Hallucination Type: None Attention and Concentration: Good Suicidal Ideation: No Previous Suicide Attempts: No Homicidal Ideation: No Previous Homicide Attempts: No Insight: Poor Judgment: Poor Affect: Euthymic Mood: Appropriate Motor Activity: Abnormal gait-specify (patient has not been able to ambulate but is noted to have adequate strength lower extremities.) Results Vitals/IOs Vital Signs Date Time Temp Pulse Resp B/P (MAP) Pulse Ox O2 Delivery O2 Flow Rate FiO2 08/18/17 07:50 120 106/70 (82) 08/18/17 03:35 97.5 16 96 Assessment & Plan Problem List: (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 Patient had neuropsychological testing which supervision or chronic care facility was recommended due to significant memory impairment. Consult appreciated. Continue current treatment. Will order repeat labs. Discharge planning in progress. Justification for Cont. Inpt. At risk for further decompensation if at lower level of care. Dustin Perales MD Aug 18, 2017 10:49
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
[2017-08-18 18:21] VITALS: BP 90/58; PULSE 86; RESP 17; TEMP 98.9; O2SAT 97
[2017-08-18 18:32] VITALS: BP 127/56; PULSE 83
[2017-08-18] MEDS: MONTELUKAST SODIUM 10 MG TAB PO SCH (20:55)
[2017-08-18] MEDS: REMOVE OLD NICODERM (NICOTINE) PATCH T-DERMAL SCH (20:56)
[2017-08-19] VITALS (9 sets, daily range): BP systolic 91–125; BP diastolic 50–80; PULSE 75–116; RESP 15–18; TEMP 97.2–98; O2SAT 93–100
[2017-08-19] MEDS: LEVOTHYROXINE SODIUM 112 MCG TAB PO SCH (04:57)
[2017-08-19] MEDS: NYSTATIN 100,000 UNIT/GM CREAM 15 GM TOPICAL SCH ×2 (08:38→22:32)
[2017-08-19] MEDS: SODIUM CHLORIDE 1 GRAM TAB PO SCH ×2 (08:39→22:31)
[2017-08-19] MEDS: GABAPENTIN 300 MG CAP PO SCH ×3 (08:39→18:05)
[2017-08-19] MEDS: levETIRAcetam 500 MG TAB PO SCH ×3 (08:39→18:05)
[2017-08-19] MEDS: ARIPiprazole 5 MG TAB PO SCH (08:39)
[2017-08-19] MEDS: MAGNESIUM OXIDE 400 MG TAB PO SCH ×2 (08:39→22:32)
[2017-08-19] MEDS: NICOTINE 21 MG/24 HR PATCH T-DERMAL SCH (08:40)
[2017-08-19] MEDS: ENOXAPARIN SODIUM 40 MG/0.4 ML SYRINGE SQ SCH (08:40)
[2017-08-19] MEDS: DONEPEZIL HCL 5 MG TAB PO SCH (08:42)
[2017-08-19] MEDS: VALSARTAN 80 MG TAB PO SCH (08:43)
[2017-08-19] MEDS: METOPROLOL TARTRATE 100 MG TAB PO SCH ×3 (08:43→22:34)
--- NOTE | 2017-08-19 10:29 | HHI.PYPN ---
Subjective Remarks Patient seen for follow-up, chart reviewed. As per nursing report patient ate for breakfast today and decided to Start today. Patient was assisted to the to the restroom and had showered but upon walking back with assistance patient had fallen on her knees and reported some pain on both knees as well as her left ankle but examination there was some noted bruising on the anterior aspect of her some bruising on the lateral aspect of the left ankle but with no limitation of range of movement. Patient reports her pain as being mild at this time. Patient states that yesterday she had gone to a class that her mother was teaching here in the hospital and that information writer's brother was present. Patient continues to be noted to be very confused and confabulating. Patient reports having slept well and eating and drinking okay. Patient denies any SI, HI, AVH or delusions. Review of Systems Except as stated in HPI: all other systems reviewed are Neg Mental Status Examination Appearance: Appropriate Consciousness: Alert Orientation: Person Motor Activity: Abnormal gait (ambulates with assistance) Speech: Unremarkable Language: Adequate Fund of Knowledge: Adequate Attention and Concentration: Adequate Memory: Impaired Mood: Good Affect: Appropriate Thought Process & Associations: Linear Thought Content: Appropriate Hallucination Type: None Delusion Type: None Suicidal Ideation: No Suicidal Plan: No Suicidal Intention: No Homicidal Ideation: No Homicidal Plan: No Homicidal Intention: No Insight: Poor Judgment: Poor Results Vitals/IOs Vital Signs Date Time Temp Pulse Resp B/P (MAP) Pulse Ox O2 Delivery O2 Flow Rate FiO2 08/19/17 08:35 116 118/75 (89) 08/19/17 05:27 98.0 15 08/18/17 18:21 97 Intake and Output 08/19/17 08/19/17 08/20/17 08:00 16:00 00:00 Intake Total 360 ml Balance 360 ml Assessment & Plan Problem List: (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 Patient had recent fall and will order x-rays of bilateral knees as well as left ankle to rule out any fractures. Continue current treatment, Discharge planning in progress Justification for Cont. Inpt. At risk for further decompensation if at lower level of care. Discharge Planning Patient to be discharged to possibly assisted living facility, custodial, or home with with appropriate services in place. Dustin Perales MD Aug 19, 2017 10:29
--- NOTE | 2017-08-19 15:55 | RADRPT ---
EXAM DATE/TIME: 08/19/2017 14:54 [facility] COMPARISON: No previous studies available for comparison. INDICATIONS : Left ankle pain post fall today MEDICAL HISTORY : None. SURGICAL HISTORY : None. ENCOUNTER: Initial ACUITY: 1 day PAIN SCORE: 7/10 LOCATION: Left entire ankle FINDINGS: Three view exam was performed of the left ankle. The bony structures are in normal alignment. No ev idence of fracture or dislocation. There is soft tissue swelling. The ankle mortise is intact. No r adiopaque foreign bodies are seen. Bony mineralization is normal. CONCLUSION: Soft tissue swelling without fracture. Dustin Polanco MD on August 19, 2017 at 15:52 Board Certified Radiologist. This report was verified electronically.
--- NOTE | 2017-08-19 15:56 | RADRPT ---
EXAM DATE/TIME: 08/19/2017 14:58 [facility] COMPARISON: No previous studies available for comparison. INDICATIONS : Left knee pain post fall today MEDICAL HISTORY : None. SURGICAL HISTORY : None. ENCOUNTER: Initial ACUITY: 1 day PAIN SCORE: 7/10 LOCATION: Left anterior knee FINDINGS: Four view examination of the left knee demonstrates no evidence of fracture or dislocation. Bony min eralization is normal. Mild degenerative changes. No fracture or effusion. CONCLUSION: Mild degenerative changes without fracture. Dustin Polanco MD on August 19, 2017 at 15:53 Board Certified Radiologist. This report was verified electronically.
--- NOTE | 2017-08-19 16:05 | RADRPT ---
EXAM DATE/TIME: 08/19/2017 15:02 [facility] COMPARISON: No previous studies available for comparison. INDICATIONS : Right knee pain post fall today MEDICAL HISTORY : None. SURGICAL HISTORY : None. ENCOUNTER: Initial ACUITY: 1 day PAIN SCORE: 5/10 LOCATION: Right anterior knee FINDINGS: Four view examination of the right knee demonstrates no evidence of fracture or dislocation. Bony mi neralization is normal. Mild degenerative changes. No fracture or effusion. CONCLUSION: Mild degenerative changes without fracture. Dustin Polanco MD on August 19, 2017 at 16:03 Board Certified Radiologist. This report was verified electronically.
[2017-08-19] MEDS: ACETAMINOPHEN 325 MG TAB PO PRN (16:29)
[2017-08-19 20:48] LABS: HEMATOCRIT 36.7 % (35.0-46.0); MEAN CORPUSCULAR HEMOGLOBIN 32.4 PG (27.0-34.0); MEAN CORPUSCULAR HGB CONC 33.4 % (32.0-36.0); PLATELET COUNT 281 TH/MM3 (150-450); RED BLOOD COUNT 3.79 MIL/MM3 (4.00-5.30); RED CELL DISTRIBUTION WIDTH 14.6 % (11.6-17.2); WHITE BLOOD COUNT 8.4 TH/MM3 (4.0-11.0)
[2017-08-19 20:52] LABS: HEMO FLAGS AUTO DIFF
[2017-08-19] MEDS: REMOVE OLD NICODERM (NICOTINE) PATCH T-DERMAL SCH (21:00)
[2017-08-19 21:08] LABS: BICARBONATE 26.8 MEQ/L (21.0-32.0); POTASSIUM 3.9 MEQ/L (3.5-5.1)
[2017-08-19 21:47] LABS: EOSINOPHILS 1 % (0-4); POLYS (SEG NEUTROPHILS) 59 % (16-70); WBC DIFF SAMPLE 100
[2017-08-19 21:50] LABS: OVALOCYTES 1+ (NORMAL); PLATELET ESTIMATE SMEAR NORMAL (NORMAL); SCAN/DIFF FINAL DIFF MANUAL
[2017-08-19 21:51] LABS: KERATOCYTES OCC (NORMAL); PLATELET MORPHOLOGY NORMAL (NORMAL)
[2017-08-19] MEDS: MONTELUKAST SODIUM 10 MG TAB PO SCH (22:31)
[2017-08-20 01:00] VITALS: BP 101/68; PULSE 82; RESP 18; TEMP 98.1; O2SAT 95
[2017-08-20 05:09] VITALS: BP 122/58; PULSE 78; RESP 16; TEMP 97.2; O2SAT 99
[2017-08-20] MEDS: LEVOTHYROXINE SODIUM 112 MCG TAB PO SCH (06:16)
[2017-08-20] MEDS: ARIPiprazole 5 MG TAB PO SCH (08:30)
[2017-08-20] MEDS: VALSARTAN 80 MG TAB PO SCH (08:30)
[2017-08-20] MEDS: GABAPENTIN 300 MG CAP PO SCH ×3 (08:30→17:12)
[2017-08-20] MEDS: MAGNESIUM OXIDE 400 MG TAB PO SCH ×2 (08:31→21:20)
[2017-08-20] MEDS: DONEPEZIL HCL 5 MG TAB PO SCH (08:33)
[2017-08-20] MEDS: levETIRAcetam 500 MG TAB PO SCH ×3 (08:33→17:12)
[2017-08-20] MEDS: SODIUM CHLORIDE 1 GRAM TAB PO SCH ×2 (08:33→21:20)
[2017-08-20] MEDS: ENOXAPARIN SODIUM 40 MG/0.4 ML SYRINGE SQ SCH (08:35)
[2017-08-20] MEDS: NICOTINE 21 MG/24 HR PATCH T-DERMAL SCH (08:36)
[2017-08-20] MEDS: REMOVE OLD NICODERM (NICOTINE) PATCH T-DERMAL SCH (08:37)
[2017-08-20] MEDS: NYSTATIN 100,000 UNIT/GM CREAM 15 GM TOPICAL SCH ×2 (08:37→21:21)
--- NOTE | 2017-08-20 09:01 | HHI.PR ---
Subjective Remarks Follow-up visit psychosis, adjustment disorder, history of seizures, HTN, AMS, status post fall. Patient had an episode of fall yesterday when she was showering, states she slipped on the chair but states she has no injuries. Continues to be confuse. Denies pain and discomfort. Denies SOB/ dyspnea. Denies any weaknesses on extremities. Denies chest pain, palpitations, headaches, dizziness. Denies fevers, chills, n/v/d. Denies dysuria. Objective Vitals Vital Signs Date Time Temp Pulse Resp B/P (MAP) Pulse Ox O2 Delivery O2 Flow Rate FiO2 08/20/17 05:09 97.2 78 16 122/58 (79) 99 08/20/17 01:00 98.1 82 18 101/68 (79) 95 08/19/17 20:50 97.9 75 15 91/54 (66) 93 08/19/17 17:00 97.9 94 18 97/57 (70) 96 08/19/17 13:00 97.2 95 18 98/71 (80) 97 08/19/17 12:00 87 18 97/67 (77) 96 08/19/17 11:00 97.2 86 16 92/68 (76) 100 08/19/17 10:00 97.8 109 18 125/80 (95) 98 I/O 08/19/17 08/19/17 08/19/17 08/20/17 08/20/17 08/20/17 06:59 14:59 22:59 06:59 14:59 22:59 Intake Total 1200 ml 720 ml 0 ml 120 ml Balance 1200 ml 720 ml 0 ml 120 ml Intake Oral 1200 ml 720 ml 0 ml 120 ml # Voids 2 1 1 0 Result Diagram: 08/19/17202808/19/172028 Imaging Last Impressions Knee X-Ray 08/19/17 0000 Signed Impressions: Service Date/Time: Saturday, August 19, 2017 15:02 - CONCLUSION: Mild degenerative changes without fracture. Dustin Polanco MD Ankle X-Ray 08/19/17 0000 Signed Impressions: Service Date/Time: Saturday, August 19, 2017 14:54 - CONCLUSION: Soft tissue swelling without fracture. Dustin Polanco MD Objective Remarks GENERAL: This is a well-nourished, well-developed patient, in no apparent distress. SKIN: Warm and dry. Perianal area focal rash. HEAD: Normocephalic. EYES: Pupils equal round and reactive. Extraocular motions intact. No scleral icterus. No injection or drainage. ENT: Nose without bleeding. Throat without erythema. Uvula midline. Airway patent. NECK: Trachea midline. Supple. CARDIOVASCULAR: Regular rate and rhythm without murmurs, gallops, or rubs. RESPIRATORY: Clear to auscultation. Breath sounds equal bilaterally. No wheezes , rales, or rhonchi. GASTROINTESTINAL: Abdomen soft, non-tender, nondistended. Bowel sounds active 4. MUSCULOSKELETAL: Extremities without clubbing, cyanosis, trace BLE edema - improved. NEUROLOGICAL: Awake and alert. Confuse. Pleasant. Oriented to person. Normal speech. A/P Problem List: (1) Unspecified psychosis ICD Code: F29 - Unspecified psychosis not due to a substance or known physiological condition (2) Adjustment disorder with anxiety ICD Code: F43.22 - Adjustment disorder with anxiety (3) Hypothyroid ICD Code: E03.9 - Hypothyroid Status: Chronic (4) HTN (hypertension) ICD Code: I10 - HTN (hypertension) Status: Chronic (5) Seizure ICD Code: R56.9 - Unspecified convulsions Status: Chronic (6) Hyponatremia ICD Code: E87.1 - Hypo-osmolality and hyponatremia Assessment and Plan Patient is a 52-year-old female with primary medical history of anxiety, seizures, asthma, hypothyroidism, hypertension who initially came in to the hospital brought in by EMS for confusion from rehabilitation center. Per review of records, patient was initially in rehabilitation for generalized weakness. CT and MRI of the brain was done, also EEG was done with no acute findings. Patient was noted to have urinary tract infection and placed on antibiotics. She was cleared from neurology and not discharged to inpatient medical psychiatry unit for further evaluation. Consulted for medical management. Status post fall - Fall risk - Continue with physical therapy while in the hospital - Knee x-ray showed mild degenerative changes without fracture. - Ankle x-ray showed soft tissue swelling without fracture - Tylenol for pain. Ice compress on and off. Elevate when at rest. Psychosis, adjustment disorder - Management by psychiatry team Encephalopathy, metabolic ? Alcohol Dementia Confusion, delirium - Patient has been worked up in the inpatient setting. EEG, MRI, CSF cultures have all been negative. - Reports ETOH use prolonged, 1-4 shots vodka - Recent urinary tract infection treated with Rocephin, Ceftin 08/07-08/13 - Speech for cognitive evaluation. [id number] cognitive deficits. Benefits from speech cognitive services. Will need ST services when discharge. - Hyponatremia improving with sodium tabs. Seizures, hx - Patient states last known seizure hospitalization was 2 years ago. But is unsure of recurrent seizures since she doesn't remember when it occurs, they just tell her. - Continue Keppra 500 mg 3 times a day - Previous EEG normal awake EEG. No evidence of focal or diffuse abnormality. - Seizure precaution HTN - Continue metoprolol 100 mg twice a day, valsartan 160 mg daily - Monitor BP trend Candidiasis - Nystatin cream - Pericare daily Generalized Weakness, previous falls reported - PT eval and treat - Fall precaution Vitamin D deficiency - Start vitamin D supplementation 50,000 every weekly - Recheck vitamin D in 3 months as an outpatient DVT prop Lovenox Discussed with patient, nursing, Dr. Rohit Patterson from Hospitalist standpoint. We will sign off. Reconsult as needed. Medically clear to DC to regular psych unit, INTERMEDIATE or SNF Discharge Planning Will need speech cognitive therapy and PT when discharge. Will benefit INTERMEDIATE or SNF placement. Herson Sheffield Aug 20, 2017 09:01
[2017-08-20] MEDS: ACETAMINOPHEN 325 MG TAB PO PRN ×3 (11:12→21:41)
[2017-08-20 18:00] VITALS: BP 106/66; PULSE 96; RESP 16; TEMP 97.8; O2SAT 96
--- NOTE | 2017-08-20 19:17 | HHI.PYPN ---
Subjective Remarks Patient seen in room with nurse, chart review, patient calm with me though continues somewhat confused disoriented, Review of Systems Except as stated in HPI: all other systems reviewed are Neg Mental Status Examination Appearance: Appropriate Consciousness: Alert Orientation: Person Motor Activity: Abnormal gait (ambulates with assistance) Speech: Unremarkable Language: Adequate Fund of Knowledge: Adequate Attention and Concentration: Adequate Memory: Impaired Mood: Good Affect: Appropriate Thought Process & Associations: Linear Thought Content: Appropriate Hallucination Type: None Delusion Type: None Suicidal Ideation: No Suicidal Plan: No Suicidal Intention: No Homicidal Ideation: No Homicidal Plan: No Homicidal Intention: No Insight: Poor Judgment: Poor Results Labs Test 08/19/17 20:29 White Blood Count 8.4 TH/MM3 Red Blood Count 3.79 MIL/MM3 Hemoglobin 12.3 GM/DL Hematocrit 36.7 % Mean Corpuscular Volume 97.0 FL Mean Corpuscular Hemoglobin 32.4 PG Mean Corpuscular Hemoglobin Concent 33.4 % Red Cell Distribution Width 14.6 % Platelet Count 281 TH/MM3 Mean Platelet Volume 10.4 FL CBC Comment AUTO DIFF Differential Total Cells Counted 100 Neutrophils % (Manual) 59 % Lymphocytes % 33 % Monocytes % 7 % Eosinophils % 1 % Neutrophils # (Manual) 5.0 TH/MM3 Differential Comment FINAL DIFF MANUAL Atypical Lymphocytes % Platelet Estimate NORMAL Platelet Morphology Comment NORMAL Ovalocytes 1+ Keratocytes OCC Blood Urea Nitrogen 7 MG/DL Creatinine 0.64 MG/DL Random Glucose 109 MG/DL Calcium Level 9.7 MG/DL Sodium Level 133 MEQ/L Potassium Level 3.9 MEQ/L Chloride Level 97 MEQ/L Carbon Dioxide Level 26.8 MEQ/L Anion Gap 9 MEQ/L Estimat Glomerular Filtration Rate 97 ML/MIN Vitals/IOs Vital Signs Date Time Temp Pulse Resp B/P (MAP) Pulse Ox O2 Delivery O2 Flow Rate FiO2 08/20/17 18:00 97.8 96 16 106/66 (79) 96 Intake and Output 08/20/17 08/20/17 08/20/17 07:59 15:59 23:59 Intake Total 120 ml 360 ml Balance 120 ml 360 ml Assessment & Plan Problem List: (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 For now continue treatment Justification for Cont. Inpt. At this time patient decompensated place a lower level of care Discharge Planning Patient still under medical care also Waylon Lacy MD Aug 20, 2017 19:17
[2017-08-20] MEDS: METOPROLOL TARTRATE 100 MG TAB PO SCH (21:00)
[2017-08-20] MEDS: MONTELUKAST SODIUM 10 MG TAB PO SCH (21:20)
[2017-08-21] MEDS: LEVOTHYROXINE SODIUM 112 MCG TAB PO SCH (06:28)
[2017-08-21] MEDS: VALSARTAN 80 MG TAB PO SCH (08:52)
[2017-08-21] MEDS: MAGNESIUM OXIDE 400 MG TAB PO SCH ×2 (08:52→21:03)
[2017-08-21] MEDS: ENOXAPARIN SODIUM 40 MG/0.4 ML SYRINGE SQ SCH (08:52)
[2017-08-21] MEDS: ARIPiprazole 5 MG TAB PO SCH (08:52)
[2017-08-21] MEDS: ERGOCALCIFEROL (VIT D2) 50,000 UNIT CAP PO SCH (08:52)
[2017-08-21] MEDS: SODIUM CHLORIDE 1 GRAM TAB PO SCH ×2 (08:52→21:03)
[2017-08-21] MEDS: DONEPEZIL HCL 5 MG TAB PO SCH (08:52)
[2017-08-21] MEDS: levETIRAcetam 500 MG TAB PO SCH ×3 (08:52→17:48)
[2017-08-21] MEDS: GABAPENTIN 300 MG CAP PO SCH ×3 (08:52→17:48)
[2017-08-21] MEDS: NYSTATIN 100,000 UNIT/GM CREAM 15 GM TOPICAL SCH ×2 (08:53→21:00)
[2017-08-21] MEDS: METOPROLOL TARTRATE 100 MG TAB PO SCH ×2 (08:53→21:03)
[2017-08-21] MEDS: NICOTINE 21 MG/24 HR PATCH T-DERMAL SCH (08:53)
--- NOTE | 2017-08-21 10:47 | HHI.PYPN ---
Subjective Remarks Patient seen in her room with nurse, chart reviewed. Patient compliant medication. Patient today denies suicidality homicidality voices or visions. Though she still remains somewhat confused about events that led to her being hospitalized here and why she is still here. For now continue treatment Review of Systems Except as stated in HPI: all other systems reviewed are Neg Mental Status Examination Appearance: Appropriate Consciousness: Alert Orientation: Person Motor Activity: Abnormal gait (ambulates with assistance) Speech: Unremarkable Language: Adequate Fund of Knowledge: Adequate Attention and Concentration: Adequate Memory: Impaired Mood: Good Affect: Appropriate Thought Process & Associations: Linear Thought Content: Appropriate Hallucination Type: None Delusion Type: None Suicidal Ideation: No Suicidal Plan: No Suicidal Intention: No Homicidal Ideation: No Homicidal Plan: No Homicidal Intention: No Insight: Poor Judgment: Poor Results Vitals/IOs Vital Signs Date Time Temp Pulse Resp B/P (MAP) Pulse Ox O2 Delivery O2 Flow Rate FiO2 08/20/17 22:41 18 08/20/17 18:00 97.8 96 106/66 (79) 96 Intake and Output 08/21/17 08/21/17 08/22/17 08:00 16:00 00:00 Intake Total 120 ml Balance 120 ml Assessment & Plan Problem List: (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 Compliant medications. Continues week at times unable to balance herself Justification for Cont. Inpt. At this time patient will decompensate if placed in a lower level of care Discharge Planning Counselor treatment team continue to work on placement issues Waylon Lacy MD Aug 21, 2017 10:47
[2017-08-21 18:00] VITALS: BP 153/75; PULSE 87; RESP 16; TEMP 98.7; O2SAT 98
[2017-08-21] MEDS: REMOVE OLD NICODERM (NICOTINE) PATCH T-DERMAL SCH (21:00)
[2017-08-21] MEDS: MONTELUKAST SODIUM 10 MG TAB PO SCH (21:03)
[2017-08-22 04:38] VITALS: BP 116/73; PULSE 65; RESP 16; TEMP 98.3; O2SAT 100
[2017-08-22] MEDS: LEVOTHYROXINE SODIUM 112 MCG TAB PO SCH ×2 (05:43→05:47)
[2017-08-22] MEDS: ACETAMINOPHEN 325 MG TAB PO PRN ×3 (06:54→21:35)
[2017-08-22] MEDS: NICOTINE 21 MG/24 HR PATCH T-DERMAL SCH (09:00)
[2017-08-22] MEDS: VALSARTAN 80 MG TAB PO SCH (09:00)
[2017-08-22] MEDS: METOPROLOL TARTRATE 100 MG TAB PO SCH ×2 (09:00→21:36)
[2017-08-22 09:20] VITALS: BP 113/71; PULSE 81
[2017-08-22] MEDS: ENOXAPARIN SODIUM 40 MG/0.4 ML SYRINGE SQ SCH (09:20)
[2017-08-22] MEDS: DONEPEZIL HCL 5 MG TAB PO SCH (09:20)
[2017-08-22] MEDS: SODIUM CHLORIDE 1 GRAM TAB PO SCH ×2 (09:20→21:36)
[2017-08-22] MEDS: levETIRAcetam 500 MG TAB PO SCH ×3 (09:21→17:14)
[2017-08-22] MEDS: GABAPENTIN 300 MG CAP PO SCH ×3 (09:21→17:14)
[2017-08-22] MEDS: MAGNESIUM OXIDE 400 MG TAB PO SCH ×2 (09:21→21:36)
[2017-08-22] MEDS: ARIPiprazole 5 MG TAB PO SCH (09:21)
[2017-08-22] MEDS: NYSTATIN 100,000 UNIT/GM CREAM 15 GM TOPICAL SCH ×2 (09:23→21:34)
--- NOTE | 2017-08-22 11:03 | HHI.PR ---
Neuropsych Emotional Emotional: Intact: Emotional, Anxious/Fearful, Depressed/Sad, Hostile/Resentful , Irritable/Angry/Frustrate, Labile, Constricted/Blunted Behavior Behavior: Intact: Behavior, Coping/Acceptance, Cooperative w/ Treatment, Motivation, Frustration Tolerance/[place], Impulsive/Agitated, Suicidal/Homicidal Risk Cognitive Cognitive: Severe: Confused/Orientation, Insight/Awareness, Memory Psychosocial Psychosocial: Unable to Asses: Psychosocial, Family/Other Adjustment, Realistic Expectation, Self-Esteem/Confidence Progress Notes/Response to Tx Contents of Sessions: Adjustment Time with Patient: 15 minutes Premorbid psychological status Premorbid Cognitive, Emotional and Behavioral Status: Tenuous. The patient's educational and occupational histories are unclear as she is not an accurate historian. Substance abuse history includes ETOH dependence, now in a controlled environment. Behavioral Reactions of Patient and Family/Support System: Unable to Assess. The patients family is likely experiencing ongoing issues of adjustment given the nature of the injury, and this aspect of recovery will require ongoing monitoring. Emotional/Behavioral Status of Patient and Family/Support System: Unable to Assess. Pertinent issues, if appropriate to this patients clinical care, are described in detail above. Maximizing acute care outcome It is recommended that the patient be monitored for emergent neuropsychological improvement as the medical condition evolves. This patients neuropathological challenges may limit their rehabilitation potential going forward, and these challenges will require specialized therapeutic skills to maximize outcome. Anticipated Problems Ongoing areas of concern will include behavioral impulsivity, lack of insight and judgment, which may or may not improve with time and treatment. Presently , the patient exhibits a dense amnestic disorder with confabulation. Treatment Plan This clinician will continue to follow with you throughout the course of this patients acute care treatment, and I will be available to meet with the patient s family/support system to facilitate their understanding and the ongoing care of their family member. The goals of neuropsychological intervention shall be both educational and supportive to the family/support system as is deemed clinically appropriate. Diagnosis: (1) Major neurocognitive disorder due to another medical condition with behavioral disturbance Progress Note Narrative Ongoing follow-up of patient seen bedside. The patient remains confused in a confabulatory sense, reporting that she was allowed to go home yesterday and returned today for a "cat nap." She is oriented only to person, reporting the year as "perhaps 2017" and that she is at [employer] (note that the sign "[facility]" is visible from her hospital room). Behaviorally, she appears compliant, conversant and agreeable. From a neuropsychological perspective, there does not appear to be any improvement in her neuropsychological state since she was last seen. Because of no change, it continues to be my clinical opinion that she is not cognitively capable of making decisions of a legal, financial or medical nature. I will continue to follow to help monitor her neurocognitive status. Ramon Moctezuma PhD Aug 22, 2017 11:03 am
[2017-08-22 16:26] VITALS: BP 134/76; PULSE 85; RESP 17; TEMP 97.7; O2SAT 98
--- NOTE | 2017-08-22 17:14 | HHI.PYPN ---
Subjective Remarks Patient seen for follow-up, chart reviewed. Discussion with staff stated the patient still eating minimal and walking/ambulating minimally. She found sitting in hospital bed stated that this weekend she had gone grocery shopping and went shopping for clothing. Patient continued to be oriented to person only but continues to confabulate. Patient encouraged to improve on nutritional intake which she agreed and also to attempt to be more ambulatory with the help of staff. Review of Systems Except as stated in HPI: all other systems reviewed are Neg Mental Status Examination Appearance: Appropriate Consciousness: Alert Orientation: Person Motor Activity: Abnormal gait (ambulates with assistance) Speech: Unremarkable Language: Adequate Fund of Knowledge: Adequate Attention and Concentration: Adequate Memory: Impaired Mood: Good Affect: Appropriate Thought Process & Associations: Linear Thought Content: Appropriate Hallucination Type: None Delusion Type: None Suicidal Ideation: No Suicidal Plan: No Suicidal Intention: No Homicidal Ideation: No Homicidal Plan: No Homicidal Intention: No Insight: Poor Judgment: Poor Results Vitals/IOs Vital Signs Date Time Temp Pulse Resp B/P (MAP) Pulse Ox O2 Delivery O2 Flow Rate FiO2 08/22/17 16:26 97.7 85 17 134/76 (95) 98 Intake and Output 08/22/17 08/22/17 08/23/17 08:00 16:00 00:00 Intake Total 120 ml Balance 120 ml Assessment & Plan Problem List: (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 Continue current treatment. Patient likely to be discharge back home with services and/ or to correction. Discharge planning in progress Justification for Cont. Inpt. At risk for further decompensation if at lower level of care Discharge Planning Patient may be discharged back home with services in place or correction placement. Dustin ePrales MD Aug 22, 2017 17:14
[2017-08-22] MEDS: REMOVE OLD NICODERM (NICOTINE) PATCH T-DERMAL SCH (21:00)
[2017-08-22] MEDS: MONTELUKAST SODIUM 10 MG TAB PO SCH (21:35)
[2017-08-23 04:44] VITALS: BP 96/61; PULSE 76; RESP 16; TEMP 97.6; O2SAT 95
[2017-08-23] MEDS: LEVOTHYROXINE SODIUM 112 MCG TAB PO SCH (04:53)
[2017-08-23] MEDS ORDERED: VALS1TAB63 PO (07:49)
[2017-08-23] MEDS ORDERED: SODI1TAB PO (07:49)
[2017-08-23] MEDS: ARIPiprazole 5 MG TAB PO SCH (08:18)
[2017-08-23] MEDS: NYSTATIN 100,000 UNIT/GM CREAM 15 GM TOPICAL SCH (08:18)
[2017-08-23] MEDS: MAGNESIUM OXIDE 400 MG TAB PO SCH (08:18)
[2017-08-23] MEDS: DONEPEZIL HCL 5 MG TAB PO SCH (08:18)
[2017-08-23] MEDS: ENOXAPARIN SODIUM 40 MG/0.4 ML SYRINGE SQ SCH (08:18)
[2017-08-23] MEDS: GABAPENTIN 300 MG CAP PO SCH ×2 (08:18→12:20)
[2017-08-23] MEDS: levETIRAcetam 500 MG TAB PO SCH ×2 (08:18→12:20)
[2017-08-23] MEDS: SODIUM CHLORIDE 1 GRAM TAB PO SCH (08:18)
[2017-08-23] MEDS: NICOTINE 21 MG/24 HR PATCH T-DERMAL SCH (08:19)
[2017-08-23] MEDS: VALSARTAN 80 MG TAB PO SCH (08:22)
[2017-08-23] MEDS: METOPROLOL TARTRATE 100 MG TAB PO SCH (08:23)
[2017-08-23] MEDS ORDERED: ARIP1TAB11 PO (10:28)
[2017-08-23] MEDS ORDERED: LEVE500 PO (10:28)
[2017-08-23] MEDS ORDERED: ARIC5TAB2 PO (10:28)
[2017-08-23 10:54] VITALS: BP 133/73; PULSE 92
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
== END 2017-08-23 16:00 | disposition home or self-care (01) | DRG 884 ==
LOC: H4EA 11:12
PROVIDERS: ADMIT Student in an Organized Health Care Education/Training Program; ATTEND Student in an Organized Health Care Education/Training Program
DX: F04 Amnestic disorder due to known physiological condition (principal); G93.41 Metabolic encephalopathy; E87.1 Hypo-osmolality and hyponatremia; G40.909 Epilepsy, unspecified, not intractable, without status epilepticus; F10.29 Alcohol dependence with unspecified alcohol-induced disorder; B37.9 Candidiasis, unspecified; N39.0 Urinary tract infection, site not specified; F43.22 Adjustment disorder with anxiety; I10 Essential (primary) hypertension; E03.9 Hypothyroidism, unspecified; J45.909 Unspecified asthma, uncomplicated; K74.60 Unspecified cirrhosis of liver; R29.6 Repeated falls; Y90.9 Presence of alcohol in blood, level not specified; E55.9 Vitamin D deficiency, unspecified; R07.89 Other chest pain; Z79.899 Other long term (current) drug therapy; Z91.81 History of falling; W18.2XXA Fall in (into) shower or empty bathtub, initial encounter; Y93.E1 Activity, personal bathing and showering; Y92.231 Patient bathroom in hospital as the place of occurrence of the external cause; R94.31 Abnormal electrocardiogram [ECG] [EKG]; K21.9 Gastro-esophageal reflux disease without esophagitis; B96.20 Unspecified Escherichia coli [E. coli] as the cause of diseases classified elsewhere; M19.90 Unspecified osteoarthritis, unspecified site; Z23 Encounter for immunization
CPT/HCPCS: 73564; 73610; 80048; 80061; 80076; 80177; 82306; 82550; 83036; 83735; 83930; 83935; 84100; 84133; 84300; 84484; 85007; 85027; 87389; 87493; 93005; 94640; 94664; 96372; G0378; G8987-GP; G8988-GP; J1650; J3475; J7030